=== PATIENT | female | born 1945 | race Caucasian/White ===

== ENCOUNTER 2021-12-27 13:01 | Inpatient (IN) | payer MEDICARE, SELFPAY ==
[2021-12-27] VITALS (16 sets, daily range): BP systolic 92–134; BP diastolic 38–103; PULSE 113–137; RESP 13–24; TEMP 36.2–36.3; O2SAT 95–98; BMI 44.3; BMI 45.6
--- NOTE | 2021-12-27 13:37 | CRLHL7_ITS ---
For Patients: As a result of the Cures Act, medical imaging exams and procedure reports are released immediately into your electronic medical record. You may view this report before your referring provider. If you have questions, please contact your health care provider. INDICATION: Tachycardia. TECHNIQUE: Chest 1 views. COMPARISON: None. FINDINGS: Lungs: Coarse interstitial markings suggest chronic changes. No focal consolidation. Pleura: No pleural effusion or pneumothorax. Elevation of the left diaphragm. Heart and Mediastinum: The heart is mildly enlarged. The vessels are unremarkable. Bones: Unremarkable. IMPRESSION: No acute cardiopulmonary disease. Dictated by Huber Johnson MD @ 12/27/2021 2:34:24 PM (Electronically Signed)
--- NOTE | 2021-12-27 13:46 | ED_ITS ---
HPI - General Adult General Date Seen: 12/27/21 Chief complaint: Arrhythmia/Palpitations Stated complaint: Rapid heart beat Time Seen by Provider: 12/27/21 13:04 Source: patient History of Present Illness HPI narrative: Patient is a 76-year-old woman who is here with her for evaluation of fast heart rate she has been present for 5-6 days. She says that she has known it has been a little bit fast, and she has felt just a little bit fatigued or maybe a little bit weak. She has not had any lightheadedness to the point of feeling faint. She has not had any chest pain, difficulty breathing. No fevers, vomiting, diarrhea, black or bloody stools. She does note she has a history of both SVT as well as atrial fibrillation. She has a history of aortic valve replacement, not anticoagulated, and she says she has also developed problems with her mitral valve. In October she saw cardiology and was started on metoprolol in addition to her lisinopril. She also was told at some point late spring or early summer that she was anemic and is on iron replacement, which has helped quite a bit with her history of vertigo. She says she has had history of frequent UTIs, and had a urology workup at [facility] recently which was unremarkable. Her last UTI was a couple of weeks ago and she feels that those symptoms have resolved completely. She denies any abdominal or flank pain, no dysuria, frequency or urgency. No hematuria. In general, she says she has really felt fine over the past week aside from knowing that her heart rate was fast and that she just generally has not had as much energy. She called her primary clinic last night and left a message, and Dr. Sal message her back around noon today saying she should come to the ER. She was seen here in July of this year with tachycardia, at that time felt to be SVT which converted spontaneously after given some diltiazem. She was admitted to the hospital for a day and did well. She does not smoke, she says she occasionally drinks a half a beer, none recently. She is here today with her . Related Data Home Medications Medication Instructions Recorded Confirmed amoxicillin 500 mg capsule mg 12/27/21 aspirin 325 mg tablet,delayed 325 mg PO DAILY 12/27/21 12/27/21 release cholecalciferol (vitamin D3) 50 50 mcg PO DAILY 12/27/21 12/27/21 mcg (2,000 unit) capsule clotrimazole 1 % topical cream 1 applic topical BID 12/27/21 12/27/21 (Antifungal (clotrimazole)) famotidine 20 mg tablet (Acid 20 mg PO DAILY 12/27/21 12/27/21 Residential Installer (famotidine)) ferrous sulfate 325 mg (65 mg 325 mg PO DAILY 12/27/21 12/27/21 iron) tablet furosemide 20 mg tablet mg 12/27/21 ketoconazole 2 % topical cream applic topical 12/27/21 levothyroxine 150 mcg tablet mcg 12/27/21 lisinopril 10 mg tablet mg 12/27/21 meclizine 25 mg chewable tablet 25 mg PO BID-TID PRN 12/27/21 12/27/21 (Antivert) metformin 500 mg tablet,extended mg PO 12/27/21 release 24 hr metoprolol succinate 25 mg mg PO 12/27/21 tablet,extended release 24 hr nitroglycerin 0.4 mg sublingual mg 12/27/21 tablet nystatin 100,000 unit/gram topical topical 12/27/21 powder (Nystop) simvastatin 20 mg tablet mg 12/27/21 Allergies Allergy/AdvReac Type Severity Reaction Status Date / Time atorvastatin Allergy Verified 12/27/21 13:35 cephalexin Allergy Verified 12/27/21 13:35 ciprofloxacin Allergy Swelling Verified 12/27/21 13:35 of Lip/Tongue/Throat clindamycin Allergy Verified 12/27/21 13:35 Fish Containing Products Allergy Verified 12/27/21 13:35 ibuprofen Allergy Verified 12/27/21 13:35 Sulfa (Sulfonamide Allergy Verified 12/27/21 13:23 Antibiotics) sulfamethoxazole Allergy Verified 12/27/21 13:35 [From Bactrim] trimethoprim [From Bactrim] Allergy Verified 12/27/21 13:35 Review of Systems Status of ROS: Reports: 10 or more systems reviewed and unremarkable except as noted in History and below Exam Narrative: Exam Narrative: Vital signs as noted above. In general, an alert, well-appearing patient. Breathing easily. Head: Normocephalic, atraumatic. Eyes: Pupils are equal reactive. Extraocular movements are full. Conjunctivae are normal. ENT: Mucous membranes are moist. Throat is normal. Neck: Supple without lymphadenopathy. Heart: Tachycardic and regular. I do not hear any murmurs at this time. Lungs: Clear bilaterally. No increased work of breathing, crackles or wheezes. Abdomen: Soft and nontender. No organomegaly. Extremities: Well perfused. No edema. No calf tenderness. Pulses intact. Neurologic: Patient is alert and oriented to person and place. Speech is fluent. Face is symmetric. Moves all extremities equally. Affect: Normal. Skin: Warm and dry. Well perfused. Const: Vital Signs, click to edit/add: Vital Signs - 24 hr 12/27/21 13:18 12/27/21 13:36 12/27/21 13:30 Temperature 97.3 F L Pulse Rate [Left P ulse Oximeter] 137 H 135 H Respiratory Rate 20 15 Blood Pressure [Le ft Forearm] 110/76 98/82 Pulse Oximetry 97 95 Oxygen Delivery Me thod Room Air 12/27/21 14:05 12/27/21 14:30 12/27/21 15:00 Temperature Pulse Rate [Left P ulse Oximeter] 134 H 117 H 130 H Respiratory Rate 15 15 18 Blood Pressure [Le ft Forearm] 134/103 H 92/74 105/74 Pulse Oximetry 96 95 95 Oxygen Delivery Me thod Room Air Room Air Room Air Documenting provider has reviewed patient's vital signs: yes Course Course Hospital Course: On arrival, patient was maintained on monitor and oximetry. An EKG done initially shows a regular, narrow complex tachycardia, ventricular rate of 136. This could represent an atrial flutter with a 2-1 block, could also represent SVT. Her heart rate is very steady in the 130s, and it is so regular that I do wonder a little bit more about atrial flutter, but I do not see clear flutter waves on her EKG. The computer is calling it atrial flutter. I think it is reasonable to give her a dose of adenosine see if we can clarify this, and on the off chance that this represents SVT, perhaps convert her. If it is an atrial flutter, she has clearly been in this rhythm for far too long to consider cardioversion, and at that point we would need to just manage with rate control. She is not showing any signs of clinical heart failure. She does have a history of what is reported in the chart as diastolic heart failure. She has had an echo both at [facility] and at [facility] this year, but I do not have either those reports. Labs are pending at this time. We will repeat a urine although it sounds as if these symptoms have resolved, and she certainly is not showing any signs of acute infection she does not report any symptoms that are suggestive of a focal infection. I did give adenosine, 6 mg. This slowed her from a 2-1 block to a 4-1 block, and then showed clear flutter waves. Otherwise she tolerated this well. I did try just giving her 5 mg of metoprolol given that that is what she takes at home. She had not taken her usual dose of 25 mg daily yet today. She did convert from a flutter to AFib after that, her rate was in the 110-120 range. Her blood pressure however dropped from 05/13 4 systolic to 92 systolic. Labs show a normal white blood cell count. Her hemoglobin is 11.1. Electrolytes are within normal limits. Blood sugars elevated at 220. LFTs are unremarkable. Her BNP is elevated at 31 30, but I do not know what her baseline is. TSH is normal. COVID was negative. Point of care troponin was 0.02. She has been otherwise feeling well in the emergency department, had a meal here. I do think for rate control purposes she will need to be admitted to the hospital. We will need to sort out anticoagulation and then potential cardioversion as an outpatient. Vital Signs Vital signs: Initial Vital Signs Temperature 97.3 F L 12/27/21 13:18 Temperature Source Temporal Artery Scan 12/27/21 13:18 Pulse Rate 137 H 12/27/21 13:18 Respiratory Rate 20 12/27/21 13:18 Blood Pressure 110/76 12/27/21 13:18 Blood Pressure Mean 87 12/27/21 13:18 Pulse Oximetry 97 12/27/21 13:18 Vital Signs Temperature 97.3 F L 12/27/21 13:18 Pulse Rate 137 H 12/27/21 13:18 Respiratory Rate 20 12/27/21 13:18 Blood Pressure 110/76 12/27/21 13:18 Pulse Oximetry 97 12/27/21 13:18 Temperature 97.3 F L 12/27/21 13:18 Pulse Rate 130 H 12/27/21 15:00 Respiratory Rate 18 12/27/21 15:00 Blood Pressure 105/74 12/27/21 15:00 Pulse Oximetry 95 12/27/21 15:00 Oxygen Delivery Method 12/27/21 15:00 Medical Decision Making Lab Data Labs: Lab Results 12/27/21 12/27/21 12/27/21 Range/Units 13:55 13:55 13:55 WBC 5.71 (4.50-11.00) K/uL RBC 4.40 (4.00-5.20) m/uL Hgb 11.1 L (12.0-16.0) gm/dL Hct 35.9 (33.0-51.0) % MCV 82 (80-100) fL MCH 25 L (26-34) pg MCHC 31 L (32-36) gm/dL RDW Coeff of Adelina 19.5 H (11.5-15.5) % Plt Count 180 (140-440) K/uL Neut % (Auto) 79.3 H (42.0-72.0) % Lymph % (Auto) 12.4 L (20-44) % [place] % (Auto) 7.4 (0.0-11.0) % Eos % (Auto) 0.0 (0.0-7.0) % Baso % (Auto) 0.7 (0.0-3.0) % Neut # (Auto) 4.50 (1.7-7.0) K/uL Lymph # (Auto) 0.70 L (0.90-2.90) K/uL [place] # (Auto) 0.40 (0.00-0.90) K/UL Eos # (Auto) 0.00 (0.00-0.50) K/uL Baso # (Auto) 0.04 (0.00-0.30) K/uL Abs Immat Gran (auto) 0.01 (0.00-0.30) K/uL INR 1.01 (0.91-1.10) Sodium 137 (135-149) mmol/L Potassium 4.6 (3.6-5.1) mmol/L Chloride 103 (96-114) mmol/L Carbon Dioxide 23 (20-32) mmol/L BUN 30 (7-30) mg/dL Creatinine 1.5 (0.5-1.5) mg/dL Estimated Creat Clear 25.57 Estimated GFR 35 ml/min Glucose 220 H (60-115) mg/dL Calcium 9.5 (8.4-10.6) mg/dL Total Bilirubin 0.5 (0.1-1.5) mg/dL Direct Bilirubin 0.2 (0.0-0.5) mg/dL AST 30 (12-35) U/L ALT 24 (4-35) U/L Alkaline Phosphatase 118 (40-150) U/L C-Reactive Protein 1.0 (0.5-1.0) mg/dL NT-Pro-B Natriuret Pep 3130 H (0-450) PG/mL Total Protein 6.9 (6.0-8.3) g/dL Albumin 4.0 (3.3-5.0) g/dL TSH (0.270-4.200) uIU/mL SARS-CoV-2 (PCR) (Negative) POC Troponin I (0.01-0.04) ng/ml 12/27/21 12/27/21 12/27/21 Range/Units 13:55 13:55 14:00 WBC (4.50-11.00) K/uL RBC (4.00-5.20) m/uL Hgb (12.0-16.0) gm/dL Hct (33.0-51.0) % MCV (80-100) fL MCH (26-34) pg MCHC (32-36) gm/dL RDW Coeff of Adelina (11.5-15.5) % Plt Count (140-440) K/uL Neut % (Auto) (42.0-72.0) % Lymph % (Auto) (20-44) % [place] % (Auto) (0.0-11.0) % Eos % (Auto) (0.0-7.0) % Baso % (Auto) (0.0-3.0) % Neut # (Auto) (1.7-7.0) K/uL Lymph # (Auto) (0.90-2.90) K/uL [place] # (Auto) (0.00-0.90) K/UL Eos # (Auto) (0.00-0.50) K/uL Baso # (Auto) (0.00-0.30) K/uL Abs Immat Gran (auto) (0.00-0.30) K/uL INR (0.91-1.10) Sodium (135-149) mmol/L Potassium (3.6-5.1) mmol/L Chloride (96-114) mmol/L Carbon Dioxide (20-32) mmol/L BUN (7-30) mg/dL Creatinine (0.5-1.5) mg/dL Estimated Creat Clear Estimated GFR ml/min Glucose (60-115) mg/dL Calcium (8.4-10.6) mg/dL Total Bilirubin (0.1-1.5) mg/dL Direct Bilirubin (0.0-0.5) mg/dL AST (12-35) U/L ALT (4-35) U/L Alkaline Phosphatase (40-150) U/L C-Reactive Protein (0.5-1.0) mg/dL NT-Pro-B Natriuret Pep (0-450) PG/mL Total Protein (6.0-8.3) g/dL Albumin (3.3-5.0) g/dL TSH 0.783 (0.270-4.200) uIU/mL SARS-CoV-2 (PCR) Negative SARS-CoV-2 (Negative) POC Troponin I 0.02 (0.01-0.04) ng/ml Discharge Plan Discharge Prescriptions: No Action simvastatin 20 mg tablet lisinopril 10 mg tablet levothyroxine 150 mcg tablet nitroglycerin 0.4 mg tablet, sublingual Label Comments: PLACE ONE TABLET UNDER TONGUE NEEDED FOR CHEST PAIN MAY REPEAT EVERY 5 MINUTES NEEDED metoprolol succinate 25 mg tablet extended release 24 hr PO nystatin [Nystop] 100,000 unit/gram powder TOPICAL Label Comments: APPLY 1 STRIP TOPICALLY TO AFFECTED AREA THREE TIMES DAILY metformin 500 mg tablet extended release 24 hr PO meclizine [Antivert] 25 mg tablet,chewable 25 mg PO BID-TID PRN clotrimazole [Antifungal (clotrimazole)] 1 % cream 1 applic topical BID cholecalciferol (vitamin D3) 50 mcg (2,000 unit) capsule 50 mcg PO DAILY amoxicillin 500 mg capsule Label Comments: TAKE 4 CAPSULE BY MOUTH 1 HOUR BEFORE DENTAL APPOINTMENT furosemide 20 mg tablet ketoconazole 2 % cream TOPICAL Label Comments: APPLY EXTERNALLY TO THE AFFECTED AREA TWICE DAILY aspirin 325 mg tablet,delayed release (DR/EC) 325 mg PO DAILY famotidine [Acid Residential Installer (famotidine)] 20 mg tablet 20 mg PO DAILY ferrous sulfate 325 mg (65 mg iron) tablet 325 mg PO DAILY Follow Up/Referrals: Martinez Sal MD [Primary Care Provider] -
[2021-12-27] MEDS: ADENOSINE 6 MG/2ML INJ IVP (14:03)
[2021-12-27] MEDS: 0.9 % SODIUM CHLORIDE 500 ML 500 ML IV (14:06)
[2021-12-27 14:08] LABS: Basophils Absolute Auto 0.04 K/uL (0.00-0.30); Basophils Percent Auto 0.7 % (0.0-3.0); Hematocrit 35.9 % (33.0-51.0); Hemoglobin* 11.1 gm/dL (12.0-16.0); Immature Granulocytes Abs Auto 0.01 K/uL (0.00-0.30); Lymphocytes Percent Auto 12.4 % (20-44); Mean Corpuscular HGB Conc 31 gm/dL (32-36); Mean Corpuscular Hemoglobin 25 pg (26-34); Mean Corpuscular Volume 82 fL (80-100); Monocytes Percent Auto 7.4 % (0.0-11.0); Neutrophils Percent Auto 79.3 % (42.0-72.0); Platelet Count* 180 K/uL (140-440); RDW Coefficient of Variation % 19.5 % (11.5-15.5); White Blood Count* 5.71 K/uL (4.50-11.00)
[2021-12-27 14:09] LABS: Slide Review Reflex No
--- NOTE | 2021-12-27 14:09 | ED.NURSE ---
was given 6 mg adenosine. heart rate did slow to a flutter. to 60s. then did increase back to 138. dr hernandez was in to see and assist with the administration.
[2021-12-27] MEDS: METOPROLOL TARTRATE 1 MG/ML inj 5 MG IVP (14:11)
[2021-12-27 14:18] LABS: Troponin, Point-of-Care* 0.02 ng/ml (0.01-0.04)
[2021-12-27 14:28] LABS: Chloride* 103 mmol/L (96-114)
[2021-12-27 14:29] LABS: Potassium* 4.6 mmol/L (3.6-5.1); Sodium* 137 mmol/L (135-149)
[2021-12-27 14:31] LABS: Creatinine* 1.5 mg/dL (0.5-1.5); Est. Creatinine Clearance* 25.57; Estimated Glomerular Filt Rate 35 ml/min
[2021-12-27 14:32] LABS: Alanine Aminotransferase* 24 U/L (4-35); Alkaline Phosphatase* 118 U/L (40-150); Aspartate Amino Transferase* 30 U/L (12-35); Bilirubin Direct* 0.2 mg/dL (0.0-0.5); Bilirubin Total* 0.5 mg/dL (0.1-1.5); Blood Urea Nitrogen* 30 mg/dL (7-30); Calcium* 9.5 mg/dL (8.4-10.6); Carbon Dioxide* 23 mmol/L (20-32); Glucose* 220 mg/dL (60-115); Total Protein* 6.9 g/dL (6.0-8.3)
[2021-12-27 14:33] LABS: INR 1.01 (0.91-1.10); Prothrombin Time 13.8 Seconds
[2021-12-27 14:40] LABS: NT Pro B Type NatriureticPept* 3130 PG/mL (0-450)
[2021-12-27 14:45] LABS: SARS PCR* Negative SARS-CoV-2 (Negative)
[2021-12-27 15:02] LABS: TSH With Reflex to FT4* 0.783 uIU/mL (0.270-4.200)
--- NOTE | 2021-12-27 17:21 | W.PC.EDHO ---
Primary Language: Preferred Language: Orientation Status: [x] Alert & Oriented [] Slight Confusion [] Known Dx Dementia Transfers By: [x] Assist of 1 [] Assist of 2 [] Lift Active Medications Discontinued Medications Generic Name Dose Route Start Last Admin Trade Name Jacob PRN Reason Stop Dose Admin Adenosine 6 mg 12/27/21 13:39 12/27/21 14:03 Adenosine 6 Mg/2ml Inj IVP 12/27/21 13:40 6 mg ONCE ONE Administration Sodium Chloride 500 mls @ 500 mls/hr 12/27/21 13:34 12/27/21 15:10 0.9 % Sodium Chloride 500 Ml IV 12/27/21 14:33 Infused .Q1H ONE Infusion Metoprolol Tartrate 5 mg 12/27/21 14:06 12/27/21 14:11 Metoprolol Tartrate 1 Mg/Ml Inj IVP 12/27/21 14:07 5 mg ONCE ONE Administration Description of Symptoms ED Triage Present Problem rapid heart rate since Sat. Has not been seen. Description Keeps thinking it will get better, but pulse remains in the 130s. Feels SOB, dizzy and weak with this. Fatigue with walking short distances. Hx of a-fib after having her aortic valve replaced 5 years ago. Had an episode of rapid heart rate in July. ED Triage Date of Onset of 12/15/21 Symptoms IV Insertion/Site Date of IV Line Insertion [ 12/27/21 Left Hand] Oxygen Administration Pulse Oximetry 95 Pulse Oximetry 95 Pulse Oximetry 96 Pulse Oximetry 95 Pulse Oximetry 97 Oxygen Delivery Method Room Air Oxygen Delivery Method Room Air Oxygen Delivery Method Room Air Oxygen Delivery Method Room Air Cardiac Monitoring EKG Method 12 Lead
[2021-12-27 18:13] LABS: Appearance Urine Clear (Clear); Bilirubin Urine Negative (Negative); Blood Urine Negative (Negative); Color Urine Yellow (Yellow); Glucose Urine Negative (Negative); Ketones Urine Negative (Negative); Leukocyte Esterase Urine Trace (Negative); Nitrite Urine Negative (Negative); Protein Urine Negative (Negative); Urobilinogen Urine 0.2 (0.2-1.0)
[2021-12-27 18:17] LABS: Bacteria Urine Few; Squamous Epithelial Cell Urine Few (None-Few); WBC Urine 0-2 (0-5)
--- NOTE | 2021-12-27 19:21 | P.IMHP_ITS ---
Hospitalist- H&P: SANTA History of Present Illness Time Seen by Provider: 16:00 Date Seen: 12/27/21 Chief complaint: Rapid heart beat Narrative: Katy Mukherjee is a 76 year old woman who presents with 5-7 day history of rapid heart rate. She is known to have paroxysmal atrial fibrillation. She was waiting and hoping that this episode of rapid heart rate would resolved. At time she felt dizzy and lightheaded. Other time she felt fatigued. Denied any chest heaviness, pressure, tightness, or pain. Denies any dyspnea at rest, paroxysmal nocturnal dyspnea, orthopnea. Denies any increased edema. Every time she will check her heart rate would be greater than 100. She finally decided to come in today for assessment in the emergency department. Historically she has had paroxysmal atrial fibrillation with rapid ventricular response. First time she noticed this was after her hip surgery December 2013. Historically she has been anticoagulated on warfarin. Has not been anticoagulated for a few years now. Not on any negative chronotropic agents. When she 1st arrived she appears to be in atrial flutter with a rate of 140. She is given a dose of adenosine. Transiently her heart rate falls and she has obvious flutter waves at 4:1 conduction. Patient was given a single dose of metoprolol 5 mg IV. Did not seem to affect her heart rate much. Decision was made to admit the patient to the hospital for better rate control and initiation of anticoagulation efforts. Patient and are agreeable. Review of Systems Status of ROS: Reports: 10 or more systems reviewed and unremarkable except as noted in History and below Narrative: Up until week ago she had been in her usual state of health. She had started to have episodes of intermittent dizziness. On Friday roughly 5 days ago she noticed an abrupt change. From then until now she notices that her heart rate is greater than 100. She had hoped that it would resolve but it has not. She finally comes in. Denies chest heaviness, pressure, tightness, or pain. Denies syncope or near-syncope. Has had episodes of transient lightheadedness, seemingly orthostatic. Denies palpitations or fluttering. Denies nausea or vomiting. Denies dyspnea at rest, paroxysmal nocturnal dyspnea, or orthopnea. Has not had a change in her lower extremity edema. No recent fevers, rigors, diaphoresis. No recent illness. No recent trauma or injury. No recent travel. No recent COVID-19. Denies blood loss of any sort. No change in bowel and bladder habits. Denies any recent weight gain or weight loss. Denies polyuria, polydipsia, polyphagia. Denies heat or cold intolerance. No focal motor neurologic deficits. Continues to use her CPAP at night. More fatigued over the course of last week. Patient designates her , Fabián, as her power of estate planning attorney for health should that be required. She requests full resuscitation in the event of cardiopulmo nary demise. Primary care physician is Dr. Sal, [place], [place]. She also receives a lot of her other cares at [facility], [place], [place]. [facility] Medical History Benign paroxysmal positional vertigo Bilateral sensorineural hearing loss CKD stage 3 due to type 2 diabetes mellitus Coronary artery disease Diabetes mellitus type 2 in obese Diastolic CHF, chronic Essential hypertension Gastroesophageal reflux disease Hyperlipidemia associated with type 2 diabetes mellitus Left atrial enlargement Lower extremity edema Mitral valve sclerosis Mitral valve stenosis, severe Morbid obesity with BMI of 45.0-49.9, adult Obstructive sleep apnea on CPAP Paroxysmal atrial fibrillation with rapid ventricular response Primary hypothyroidism Tinnitus of both ears Surgical History H/O aortic valve replacement History of hysterectomy History of right hip replacement Previous section Status post appendectomy Status post cholecystectomy Status post left knee replacement Status post right knee replacement Social History Highest level of school completed/degree received: Bachelor's degree Smoking Status: Former smoker Do you use any of these nicotine containing products: None Second hand tobacco smoke exposure: No How often do you have a drink containing alcohol: 2-3 times a week Alcohol type: beer and wine How many standard drinks containing alcohol do you have on a typical day: 1 or 2 How often do you have six or more drinks on one occasion: Never AUDIT-C Alcohol total score: 3 Non-prescribed substance use: denies use Caffeine: No service: No Meds Home Medications and Allergies Home Medications Medication Instructions Recorded Confirmed Type amoxicillin 500 mg capsule 2,000 mg PO PRN PRN 12/27/21 12/27/21 History aspirin 325 mg tablet,delayed 325 mg PO HS 12/27/21 12/27/21 History release cholecalciferol (vitamin D3) 50 50 mcg PO DAILY 12/27/21 12/27/21 History mcg (2,000 unit) capsule clotrimazole 1 % topical cream 1 applic topical BID 12/27/21 12/27/21 History (Antifungal (clotrimazole)) famotidine 20 mg tablet (Acid 20 mg PO HS 12/27/21 12/27/21 History Workforce Management Analyst (famotidine)) ferrous sulfate 325 mg (65 mg 325 mg PO DAILY 12/27/21 12/27/21 History iron) tablet furosemide 20 mg tablet 20 mg PO MOWEFR@12/27/21 12/27/21 History levothyroxine 150 mcg tablet 150 mcg PO DAILY 12/27/21 12/27/21 History lisinopril 10 mg tablet 10 mg PO DAILY 12/27/21 12/27/21 History meclizine 25 mg chewable tablet 25 mg PO BID-TID PRN 12/27/21 12/27/21 History (Antivert) metformin 500 mg tablet,extended 1,000 mg PO DAILY@18 12/27/21 12/27/21 History release 24 hr metoprolol succinate 25 mg 25 mg PO DAILY 12/27/21 12/27/21 History tablet,extended release 24 hr nitroglycerin 0.4 mg sublingual 0.4 mg sublingual Q5M PRN 12/27/21 12/27/21 History tablet nystatin 100,000 unit/gram topical 1 applic topical TID 12/27/21 12/27/21 History powder (Nystop) simvastatin 20 mg tablet 20 mg PO HS 12/27/21 12/27/21 History Allergies Allergy/AdvReac Type Severity Reaction Status Date / Time atorvastatin Allergy Verified 12/27/21 13:35 cephalexin Allergy Verified 12/27/21 13:35 ciprofloxacin Allergy Swelling Verified 12/27/21 13:35 of Lip/Tongue/Throat clindamycin Allergy Verified 12/27/21 13:35 Fish Containing Products Allergy Verified 12/27/21 13:35 ibuprofen Allergy Verified 12/27/21 13:35 Sulfa (Sulfonamide Allergy Verified 12/27/21 13:23 Antibiotics) sulfamethoxazole Allergy Verified 12/27/21 13:35 [From Bactrim] trimethoprim [From Bactrim] Allergy Verified 12/27/21 13:35 Exam Narrative: Exam Narrative: Appears comfortable and in no apparent distress. Alert, articulate, cooperative, friendly. Oriented to self, place, time, situation. Mood and affect are congruent. Vision and hearing are grossly adequate. She is able to engage in meaningful dialogue in conversation. Midline nasal septum. Dentition in fair repair. Tight oral aperture. Midline trachea. Supple neck. Neck is full. Difficult to see JVD or hepatojugular reflux. No adenopathy in the pre or postauricular chains, anterior or posterior cervical chains, submandibular or submental fossa, supra or infraclavicular fossa, or axilla bilaterally. Lungs are clear to auscultation without wheezing, rhonchi, or rales. Chest wall excursions are full. Heart tones with regular rhythm, tachycardia, normal S1-S2, systolic murmur noted. No gallop or rub. Abdomen with active bowel sounds, soft, nontender. Obese abdomen. Extremity with only trace edema pretibially bilaterally. No focal motor neurologic deficits. Skin is warm, dry, intact. Const: Vital Signs, click to edit/add: Vital Signs - 24 hr 12/27/21 13:18 12/27/21 13:36 12/27/21 13:30 Temperature 97.3 F L Pulse Rate [Left A pical] Pulse Rate [Left P ulse Oximeter] 137 H 135 H Respiratory Rate 20 15 Blood Pressure [Le ft Arm] Blood Pressure [Le ft Forearm] 110/76 98/82 Pulse Oximetry 97 95 Oxygen Delivery Ms thod Room Air 12/27/21 14:05 12/27/21 14:30 12/27/21 15:00 Temperature Pulse Rate [Left A pical] Pulse Rate [Left P ulse Oximeter] 134 H 117 H 130 H Respiratory Rate 15 15 18 Blood Pressure [Le ft Arm] Blood Pressure [Le ft Forearm] 134/103 H 92/74 105/74 Pulse Oximetry 96 95 95 Oxygen Delivery Ms thod Room Air Room Air Room Air 12/27/21 17:56 12/27/21 15:30 12/27/21 16:00 Temperature 97.1 F L Pulse Rate [Left A pical] 136 H Pulse Rate [Left P ulse Oximeter] 129 H 137 H Respiratory Rate 20 19 13 Blood Pressure [Le ft Arm] 118/73 Blood Pressure [Le ft Forearm] 117/88 97/38 L Pulse Oximetry 98 97 Oxygen Delivery Me thod Room Air Room Air Room Air 12/27/21 16:30 12/27/21 17:00 12/27/21 17:30 Temperature Pulse Rate [Left A pical] Pulse Rate [Left P ulse Oximeter] 135 H 134 H 134 H Respiratory Rate 20 24 21 Blood Pressure [Le ft Arm] Blood Pressure [Le ft Forearm] 112/87 125/77 114/66 Pulse Oximetry 95 96 Oxygen Delivery Me thod Room Air Room Air Room Air 12/27/21 18:47 Temperature Pulse Rate [Left A pical] Pulse Rate [Left P ulse Oximeter] Respiratory Rate Blood Pressure [Le ft Arm] Blood Pressure [Le ft Forearm] Pulse Oximetry 98 Oxygen Delivery Me thod Room Air Documenting provider has reviewed patient's vital signs: yes Hospitalist - H&P: Result Labs Labs: Short CBC 12/27/21 Range/Units 13:55 WBC 5.71 (4.50-11.00) K/uL Hgb 11.1 L (12.0-16.0) gm/dL Hct 35.9 (33.0-51.0) % Plt Count 180 (140-440) K/uL BMP 12/27/21 13:55 Sodium 137 Potassium 4.6 Chloride 103 Carbon Dioxide 23 BUN 30 Creatinine 1.5 Glucose 220 H Calcium 9.5 Liver Function 12/27/21 Range/Units 13:55 Total Bilirubin 0.5 (0.1-1.5) mg/dL Direct Bilirubin 0.2 (0.0-0.5) mg/dL AST 30 (12-35) U/L ALT 24 (4-35) U/L Alkaline Phosphatase 118 (40-150) U/L Albumin 4.0 (3.3-5.0) g/dL Urine 12/27/21 Range/Units 17:50 Urine Color Yellow (Yellow) Urine Appearance Clear (Clear) Urine pH 6.0 (5.0-8.5) Ur Specific [place] 1.020 (1.000-1.030) Urine Protein Negative (Negative) Urine Glucose (UA) Negative (Negative) ECG Attestation: I personally reviewed and interpreted this ECG as follows: ECG interpretation date: 12/27/21 ECG interpretation time: 16:00 Prior ECG tracings: not available for review Interpretation: Atrial fib flutter, RVR, rate of 140, without ischemic or infarction pattern. Imaging Chest x-ray: Attestation: I have reviewed the pertinent imaging results. Radiologist's impression: Lungs: Coarse interstitial markings suggest chronic changes. No focal consolidation. Pleura: No pleural effusion or pneumothorax. Elevation of the left diaphragm. Heart and Mediastinum: The heart is mildly enlarged. The vessels are unremarkable. Bones: Unremarkable. IMPRESSION: No acute cardiopulmonary disease. Assessment and Plan Assessment and plan (1) Atrial flutter with rapid ventricular response: Status: Acute (2) Atrial fibrillation with rapid ventricular response: Status: Acute (3) Diastolic CHF, chronic: Problem comment: ECHO 08/08/2021: Grade 2 pattern LV diastolic pattern. Right ventricular systolic pressure 31 mmHg plus right atrial pressure. Status: Acute (4) Mitral valve stenosis, severe: Problem comment: ECHO 08/08/2021: mean gradient 8-11 mmHg at 86-93 bpm, no regurgitation. Status: Acute Plan 1. Discussed the case with emergency department physician. 2. Reviewed my impressions, plans, recommendations with the patient and her . Answered their questions to their satisfaction. 3. Recommend admission to the hospital for rate control and initiation of anticoagulation. Patient has had this rapid ventricular response for several days and is not a candidate for immediate, urgent cardioversion. 4. Initiate diltiazem IV drip and IV metoprolol intermittently. Will eventually switch over to oral diltiazem and oral metoprolol. 5. If we are not able to achieve rate control with diltiazem and metoprolol, may need to add amiodarone. 6. Enoxaparin 1 milligram/kilograms subcutaneously q.12 hours for now. In time will switch to novel oral anticoagulant. 7. Telemetry, serial electrocardiograms, repeat echocardiogram, serial troponin I's. 8. It seems that her mitral stenosis is driving this. This patient will certainly warrant follow-up with Cardiology for additional diagnostic and interventional considerations. 9. Continue with other supportive efforts including CPAP for obstructive sleep apnea. 10. Sliding scale insulin while in hospital, monitoring blood sugars q.i.d., a.c. and at bedtime. 11. Patient and are agreeable to above stated plans and recommendations.
[2021-12-27 19:28] LABS: Magnesium* 1.6 mg/dL (1.5-2.6)
[2021-12-27] MEDS: FUROSEMIDE 10 MG/ML inj 20 MG IVP (19:47)
[2021-12-27] MEDS: dilTIAZem 5 MG/ML inj 10 MG IVP (19:47)
[2021-12-27] MEDS: ENOXAPARIN 120 MG/0.8 ML INJ SUBCUT (19:52)
[2021-12-27 21:04] LABS: Troponin I* 0.02 ng/mL (0.01-0.04)
[2021-12-27] MEDS: METOPROLOL TARTRATE 25 MG TABLET 12.5 MG PO (23:24)
[2021-12-27] MEDS: dilTIAZem 120 MG CAP.ER.24H PO (23:24)
[2021-12-28] VITALS (10 sets, daily range): BP systolic 96–132; BP diastolic 55–88; PULSE 58–123; RESP 18–20; TEMP 36.1–36.7; O2SAT 92–97
[2021-12-28] MEDS: METOPROLOL TARTRATE 1 MG/ML inj 5 MG IVP (01:23)
[2021-12-28] MEDS: ENOXAPARIN 120 MG/0.8 ML INJ SUBCUT (06:18)
--- NOTE | 2021-12-28 06:52 | PC.NURSE ---
shift note 19-: Pt is pleasant and cooperative, A&O. Afebrile, oxygen saturations >90% on RA, CPAP on at HS. Pt SOB with exertion, improves at rest. Denies dizziness and lightheadedness. Tele reads a-fib/a-flutter. Initially patients HR was 110-130's, initiated 10mg IVP Diltiazem bolus and patients BP dropped to 70's/40's, pt was asymptomatic. MD updated and diltiazem drip was discontinued. Pt's HR was 90-110 after the diltiazem bolus, a-flutter. Pt instead started on oral cardiac meds, see eMAR. Pt's HR fluctuated overnight 90's to low 100's at rest, increased as high as 120's with exertion. IVP PRN Metoprolol given x1 overnight for HR >100 for >10mins, unable to give at 0600 because SBP was under 100. Pt denies pain, CP, and N/V. Pt up SBA with a cane and steady on her feet.
[2021-12-28 06:53] LABS: Hematocrit 34.8 % (33.0-51.0); Hemoglobin* 10.7 gm/dL (12.0-16.0); Mean Corpuscular HGB Conc 31 gm/dL (32-36); Mean Corpuscular Hemoglobin 25 pg (26-34); Mean Corpuscular Volume 82 fL (80-100); Platelet Count* 166 K/uL (140-440); Red Blood Count 4.27 m/uL (4.00-5.20); White Blood Count* 4.63 K/uL (4.50-11.00)
[2021-12-28 07:11] LABS: Albumin* 3.8 g/dL (3.3-5.0); Chloride* 105 mmol/L (96-114); Sodium* 135 mmol/L (135-149)
[2021-12-28 07:12] LABS: Potassium* 4.4 mmol/L (3.6-5.1)
[2021-12-28 07:14] LABS: Blood Urea Nitrogen* 34 mg/dL (7-30); Carbon Dioxide* 23 mmol/L (20-32); Creatinine* 1.6 mg/dL (0.5-1.5); Est. Creatinine Clearance* 23.97; Estimated Glomerular Filt Rate 33 ml/min
[2021-12-28 07:15] LABS: Calcium* 8.8 mg/dL (8.4-10.6); Glucose* 143 mg/dL (60-115); Magnesium* 1.5 mg/dL (1.5-2.6); Phosphorus* 4.6 mg/dL (2.5-4.5)
[2021-12-28 07:23] LABS: Slide Review Reflex No
[2021-12-28 07:27] LABS: Troponin I* 0.02 ng/mL (0.01-0.04)
--- NOTE | 2021-12-28 09:19 | PM.IMPN1 ---
Progress Note: A&P Assessment and plan (1) Atrial flutter with rapid ventricular response: Status: Acute (2) Atrial fibrillation with rapid ventricular response: Status: Acute (3) Paroxysmal atrial fibrillation with rapid ventricular response: Problem details: CHADSVASC score 4 09/2020 Status: Chronic (4) Diastolic CHF, chronic: Problem details: ECHO 08/08/2021: Grade 2 pattern LV diastolic pattern. Right ventricular systolic pressure 31 mmHg plus right atrial pressure. Status: Acute (5) Mitral valve stenosis, severe: Problem details: ECHO 08/08/2021: mean gradient 8-11 mmHg at 86-93 bpm, no regurgitation. 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 ECHO 08/08/2021: mean gradient 20 mmHg, no regurgitation. Status: Chronic (7) CONSTANTINE (acute kidney injury): Problem details: Cr 1.5-1.6, up from 1.2 in July 2021. Suspect secondary to cardiorenal syndrome. Status: Acute (8) CKD stage 3 due to type 2 diabetes mellitus: Status: Chronic (9) Essential hypertension: Status: Chronic (10) Obstructive sleep apnea on CPAP: Status: Chronic (11) Coronary artery disease: Problem details: on statin Status: Chronic (12) Diabetes mellitus type 2 in obese: Status: Chronic (13) Normocytic anemia: Status: Chronic Plan Has been getting prn metoprolol for rate control, but continues to have elevated HR and soft BP. I suspect BP will improve with slowing HR down. Trial of po diltiazem. If HR and BP do not improve with this, then start amiodarone. Hold lisinopril, furosemide to allow for higher BP to adjust rate control medications and due to CONSTANTINE. Anticoagulation with therapeutic doses of lovenox for now. Transition to eliquis when stable. ECHO pending today. Hold metformin due to CONSTANTINE. Blood glucoses close to inpatient goal 140-180's . Use Insulin SS with meals and bedtime. Recheck CBC, BMP in am. Restart statin. Anemia stable. Has been on oral iron as outpatient. Restart. TSH checked yesterday and is within normal limits. Continue outpatient levothyroxine. Subjective Time Seen by Provider: 09:00 Date Seen: 09/16/22 Interval history: Estephania Burns, is a 76 y.o woman with known paroxysmal atrial fibrillation who had a racing heart rate for 5-7 days and was found to be in rapid ventricular rate with flutter waves seen after administration of adenosine yesterday. She received an IV diltiazem bolus yesterday, but remains in rapid ventricular rate this morning. Her blood pressure is soft, running in the 100s over 70s, so she has not received any prn doses of metoprolol. Sitting down she feels all right, just a little fatigued. With standing and walking to the bathroom, she feels short of breath and a little dizzy. She denies chest pain. 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 She had an aortic valve replacement with a bioprosthetic porcine valve several years ago. She took warfarin for 6 months after that, and then her forms builder recommended switching to aspirin 325 mg daily which she has been taking since then. This summer she was treated several times with amoxicillin for urinary tract infections. Most recently at the end of November she was treated with nitrofurantoin and feels like the urinary tract infection has finally resolved. She denies any recent urinary symptoms. Exam Narrative: Exam Narrative: General: No acute distress. Awake, alert, oriented x3. No pallor. No jaundice. Oropharynx: Clear. Mucous membranes moist. Cardiovascular: Irregularly irregular. Grade 2/6 systolic murmur loudest at the left lower sternal border. Respiratory: Clear to auscultation bilaterally. No wheezes or crackles. Abdomen: Bowel sounds present. Soft, nondistended, nontender. Extremities: 1+ pretibial edema bilaterally. Const: Vital Signs, click to edit/add: Vital Signs - 24 hr 12/27/21 13:18 12/27/21 13:36 12/27/21 13:30 Temperature 97.3 F L Pulse Rate Pulse Rate [Left A pical] Pulse Rate [Left P ulse Oximeter] 137 H 135 H Respiratory Rate 20 15 Blood Pressure [Le ft Arm] Blood Pressure [Le ft Forearm] 110/76 98/82 Pulse Oximetry 97 95 Oxygen Delivery Me thod Room Air 12/27/21 14:05 12/27/21 14:30 12/27/21 15:00 Temperature Pulse Rate Pulse Rate [Left A pical] Pulse Rate [Left P ulse Oximeter] 134 H 117 H 130 H Respiratory Rate 15 15 18 Blood Pressure [Le ft Arm] Blood Pressure [Le ft Forearm] 134/103 H 92/74 105/74 Pulse Oximetry 96 95 95 Oxygen Delivery [facility] [place] Room Air Room Air Room Air 12/27/21 17:56 12/27/21 15:30 12/27/21 16:00 Temperature 97.1 F L Pulse Rate Pulse Rate [Left A pical] 136 H Pulse Rate [Left P ulse Oximeter] 129 H 137 H Respiratory Rate 20 19 13 Blood Pressure [Le ft Arm] 118/73 Blood Pressure [Le ft Forearm] 117/88 97/38 L Pulse Oximetry 98 97 Oxygen Delivery [facility] Room Air Room Air Room Air 12/27/21 16:30 12/27/21 17:00 12/27/21 17:30 Temperature Pulse Rate Pulse Rate [Left A pical] Pulse Rate [Left P ulse Oximeter] 135 H 134 H 134 H Respiratory Rate 20 24 21 Blood Pressure [Le ft Arm] Blood Pressure [Le ft Forearm] 112/87 125/77 114/66 Pulse Oximetry 95 96 Oxygen Delivery [facility] Room Air Room Air Room Air 12/27/21 18:47 12/27/21 17:50 12/27/21 19:00 Temperature 97.2 F L Pulse Rate 136 H Pulse Rate [Left A pical] 130 H Pulse Rate [Left P ulse Oximeter] Respiratory Rate 20 Blood Pressure [Le ft Arm] 108/57 L Blood Pressure [Le ft Forearm] Pulse Oximetry 98 97 Oxygen Delivery [facility] Room Air Room Air 12/27/21 23:00 12/27/21 23:00 12/27/21 23:00 Temperature 97.3 F L Pulse Rate Pulse Rate [Left A pical] 113 H Pulse Rate [Left P ulse Oximeter] Respiratory Rate 20 20 20 Blood Pressure [Le ft Arm] 119/48 L Blood Pressure [Le ft Forearm] Pulse Oximetry 96 96 97 [facility]xygen [facility] [place] Room Air Room Air 12/28/21 00:33 12/28/21 04:00 12/28/21 07:00 Temperature 97 F L Pulse Rate 97 Pulse Rate [Left A pical] 98 Pulse Rate [Left P ulse Oximeter] Respiratory Rate 20 Blood Pressure [Le ft Arm] 109/55 L Blood Pressure [Le ft Forearm] Pulse Oximetry 92 Oxygen Delivery Me thod Room Air Room Air 12/28/21 07:00 12/28/21 08:00 12/28/21 07:00 Temperature 97.5 F L Pulse Rate 111 H Pulse Rate [Left A pical] 111 H 111 H Pulse Rate [Left P ulse Oximeter] Respiratory Rate 20 20 Blood Pressure [Le ft Arm] 108/78 Blood Pressure [Le ft Forearm] Pulse Oximetry 93 Oxygen Delivery Me thod Room Air Labs Labs: Laboratory Results - last 24 hr 12/27/21 12/27/21 12/27/21 13:55 13:55 13:55 WBC 5.71 RBC 4.40 Hgb 11.1 L Hct 35.9 MCV 82 MCH 25 L MCHC 31 L RDW Coeff of Adelina 19.5 H Plt Count 180 Neut % (Auto) 79.3 H Lymph % (Auto) 12.4 L [place] % (Auto) 7.4 Eos % (Auto) 0.0 Baso % (Auto) 0.7 Neut # (Auto) 4.50 Lymph # (Auto) 0.70 L [place] # (Auto) 0.40 Eos # (Auto) 0.00 Baso # (Auto) 0.04 Abs Immat Gran (auto) 0.01 INR 1.01 Sodium 137 Potassium 4.6 Chloride 103 Carbon Dioxide 23 BUN 30 Creatinine 1.5 Estimated Creat Clear 25.57 Estimated GFR 35 Glucose 220 H Calcium 9.5 Phosphorus Magnesium 1.6 Total Bilirubin 0.5 Direct Bilirubin 0.2 AST 30 ALT 24 Alkaline Phosphatase 118 Troponin I C-Reactive Protein 1.0 NT-Pro-B Natriuret Pep 3130 H Total Protein 6.9 Albumin 4.0 TSH Urine Color Urine Appearance Urine pH Ur Specific [place] Urine Protein Urine Glucose (UA) Urine Ketones Urine Blood Urine Nitrite Urine Bilirubin Urine Urobilinogen Ur Leukocyte Esterase Urine RBC Urine WBC Ur Squamous Epith Cells Urine Bacteria SARS-CoV-2 (PCR) POC Troponin I 12/27/21 12/27/21 12/27/21 13:55 13:55 14:00 WBC RBC Hgb Hct MCV MCH MCHC RDW Coeff of Adelina Plt Count Neut % (Auto) Lymph % (Auto) [place] % (Auto) Eos % (Auto) Baso % (Auto) Neut # (Auto) Lymph # (Auto) [place] # (Auto) Eos # (Auto) Baso # (Auto) Abs Immat Gran (auto) INR Sodium Potassium Chloride Carbon Dioxide BUN Creatinine Estimated Creat Clear Estimated GFR Glucose Calcium Phosphorus Magnesium Total Bilirubin Direct Bilirubin AST ALT Alkaline Phosphatase Troponin I C-Reactive Protein NT-Pro-B Natriuret Pep Total Protein Albumin TSH 0.783 Urine Color Urine Appearance Urine pH Ur Specific [place] Urine Protein Urine Glucose (UA) Urine Ketones Urine Blood Urine Nitrite Urine Bilirubin Urine Urobilinogen Ur Leukocyte Esterase Urine RBC Urine WBC Ur Squamous Epith Cells Urine Bacteria SARS-CoV-2 (PCR) Negative SARS-CoV-2 POC Troponin I 0.02 12/27/21 12/27/21 12/28/21 17:50 19:55 06:20 WBC 4.63 RBC 4.27 Hgb 10.7 L Hct 34.8 MCV 82 MCH 25 L MCHC 31 L RDW Coeff of Adelina Plt Count 166 Neut % (Auto) Lymph % (Auto) [place] % (Auto) Eos % (Auto) Baso % (Auto) Neut # (Auto) Lymph # (Auto) [place] # (Auto) Eos # (Auto) Baso # (Auto) Abs Immat Gran (auto) INR Sodium Potassium Chloride Carbon Dioxide BUN Creatinine Estimated Creat Clear Estimated GFR Glucose Calcium Phosphorus Magnesium Total Bilirubin Direct Bilirubin AST ALT Alkaline Phosphatase Troponin I 0.02 C-Reactive Protein NT-Pro-B Natriuret Pep Total Protein Albumin TSH Urine Color Yellow Urine Appearance Clear Urine pH 6.0 Ur Specific [place] 1.020 Urine Protein Negative Urine Glucose (UA) Negative Urine Ketones Negative Urine Blood Negative Urine Nitrite Negative Urine Bilirubin Negative Urine Urobilinogen 0.2 Ur Leukocyte Esterase Trace A Urine RBC 2-5 A Urine WBC 0-2 Ur Squamous Epith Cells Few Urine Bacteria Few A SARS-CoV-2 (PCR) POC Troponin I 12/28/21 06:20 WBC RBC Hgb Hct MCV MCH MCHC RDW Coeff of Adelina Plt Count Neut % (Auto) Lymph % (Auto) [place] % (Auto) Eos % (Auto) Baso % (Auto) Neut # (Auto) Lymph # (Auto) [place] # (Auto) Eos # (Auto) Baso # (Auto) Abs Immat Gran (auto) INR Sodium 135 Potassium 4.4 Chloride 105 Carbon Dioxide 23 BUN 34 H Creatinine 1.6 H Estimated Creat Clear 23.97 Estimated GFR 33 Glucose 143 H Calcium 8.8 Phosphorus 4.6 H Magnesium 1.5 Total Bilirubin Direct Bilirubin AST ALT Alkaline Phosphatase Troponin I 0.02 C-Reactive Protein NT-Pro-B Natriuret Pep Total Protein Albumin 3.8 TSH Urine Color Urine Appearance Urine pH Ur Specific [place] Urine Protein Urine Glucose (UA) Urine Ketones Urine Blood Urine Nitrite Urine Bilirubin Urine Urobilinogen Ur Leukocyte Esterase Urine RBC Urine WBC Ur Squamous Epith Cells Urine Bacteria SARS-CoV-2 (PCR) POC Troponin I
[2021-12-28] MEDS: dilTIAZem 120 MG CAP.ER.24H PO (10:05)
[2021-12-28] MEDS: LEVOTHYROXINE 75 MCG TABLET 150 MCG PO (10:50)
[2021-12-28] MEDS: METOPROLOL TARTRATE 25 MG TABLET 12.5 MG PO (11:48)
[2021-12-28] MEDS: SIMVASTATIN 20 MG TABLET PO (21:15)
[2021-12-28] MEDS: CLOTRIMAZOLE 1 % CREAM 1 APPLIC TOPICAL (21:15)
[2021-12-28] MEDS: NYSTATIN POWDER 1 APPLIC TOPICAL (22:14)
[2021-12-29 01:50] VITALS: BP 162/86; PULSE 73; RESP 20; TEMP 36.7; O2SAT 96
[2021-12-29] MEDS: LEVOTHYROXINE 75 MCG TABLET 150 MCG PO (05:59)
[2021-12-29] MEDS: ENOXAPARIN 120 MG/0.8 ML INJ SUBCUT (06:00)
--- NOTE | 2021-12-29 06:04 | PC.NURSE ---
Shift Note -: Pt pleasant and cooperative. 2100 dose of Metoprolol held d/t decreased HR and soft BP. Tele shows Pt converted to NSR between 2200 and 2300 with sustained decreased HR noted for the remainder of the shift. Pt denies pain or SOB. PIV patent and asymptomatic. Pt c/o urinary frequency with noted cloudy urine observed by staff, Pt requested to be screened for possible UTI. Sample obtained and sent to lab for culture, results pending. No fever noted throughout shift. Pt up with SBA and assistive cane, Pt observed to be steady on her feet. See eMAR for medication administration.
[2021-12-29 07:30] VITALS: PULSE 66
[2021-12-29 07:48] LABS: Appearance Urine Cloudy (Clear); Bilirubin Urine Negative (Negative); Blood Urine 3+ (Negative); Color Urine Yellow (Yellow); Glucose Urine Negative (Negative); Ketones Urine Trace (Negative); Leukocyte Esterase Urine 2+ (Negative); Nitrite Urine Positive (Negative); Protein Urine 3+ (Negative); Specific Gravity Urine >= 1.030 (1.000-1.030); Urobilinogen Urine 0.2 (0.2-1.0); pH Urine 5.5 (5.0-8.5)
[2021-12-29 08:00] VITALS: PULSE 70; RESP 20; TEMP 36.1; O2SAT 95
[2021-12-29 08:02] LABS: Bacteria Urine Moderate; Squamous Epithelial Cell Urine Few (None-Few); WBC Urine >100 (0-5)
[2021-12-29 08:27] LABS: Basophils Absolute Auto 0.02 K/uL (0.00-0.30); Basophils Percent Auto 0.3 % (0.0-3.0); Hematocrit 34.4 % (33.0-51.0); Hemoglobin* 10.6 gm/dL (12.0-16.0); Immature Granulocytes Abs Auto 0.02 K/uL (0.00-0.30); Lymphocytes Percent Auto 14.8 % (20-44); Mean Corpuscular HGB Conc 31 gm/dL (32-36); Mean Corpuscular Hemoglobin 25 pg (26-34); Mean Corpuscular Volume 82 fL (80-100); Monocytes Percent Auto 10.1 % (0.0-11.0); Neutrophils Percent Auto 74.5 % (42.0-72.0); Platelet Count* 164 K/uL (140-440); RDW Coefficient of Variation % 19.7 % (11.5-15.5); Red Blood Count 4.22 m/uL (4.00-5.20); White Blood Count* 5.87 K/uL (4.50-11.00)
[2021-12-29 08:37] LABS: Slide Review Reflex No
[2021-12-29 08:43] LABS: Chloride* 103 mmol/L (96-114); Sodium* 137 mmol/L (135-149)
[2021-12-29 08:46] LABS: Carbon Dioxide* 23 mmol/L (20-32); Creatinine* 1.6 mg/dL (0.5-1.5); Est. Creatinine Clearance* 23.97; Estimated Glomerular Filt Rate 33 ml/min
[2021-12-29 08:47] LABS: Blood Urea Nitrogen* 34 mg/dL (7-30); Calcium* 8.8 mg/dL (8.4-10.6); Glucose* 203 mg/dL (60-115)
[2021-12-29] MEDS: dilTIAZem 120 MG CAP.ER.24H PO (09:09)
[2021-12-29] MEDS: NYSTATIN POWDER 1 APPLIC TOPICAL (09:10)
[2021-12-29] MEDS: CLOTRIMAZOLE 1 % CREAM 1 APPLIC TOPICAL (09:10)
[2021-12-29] MEDS: FERROUS SULFATE 325 MG TABLET PO (09:10)
[2021-12-29 12:00] VITALS: BP 109/65; PULSE 59; RESP 20; TEMP 36.4; O2SAT 96
--- NOTE | 2021-12-29 12:55 | P.DS_ITS ---
DS: Providers Provider Time Seen by Provider: 09:00 Date Seen: 12/29/21 Date of admission: 12/27/21 21:05 Primary care physician: Martinez Sal MD Admitting Clinician: Adin Quezada MD Consults: 12/27/21 18:47 Consult to Nutrition [CONS] Routine Comment: Reason for consult:: Miscellaneous Comment: diastolic heart failure Attending Physician on discharge: Esthela Beckman MD Date of Discharge: 12/29/21 DS: Diagnosis Discharge Diagnosis (1) Primary hypothyroidism: Status: Chronic (2) Normocytic anemia: Status: Chronic (3) CONSTANTINE (acute kidney injury): Status: Acute Problem details: Cr 1.5-1.6, up from 1.2 in July 2021. Suspect secondary to cardiorenal syndrome. (4) Atrial flutter with rapid ventricular response: Status: Acute (5) Atrial fibrillation with rapid ventricular response: Status: Acute (6) Paroxysmal atrial fibrillation with rapid ventricular response: Status: Chronic Problem details: CHADSVASC score 4 09/2020 (7) Diastolic CHF, chronic: Status: Acute Problem details: ECHO 08/08/2021: Grade 2 pattern LV diastolic pattern. Right ventricular systolic pressure 31 mmHg plus right atrial pressure. 12/28/2021 calculated EF 58% (8) Mitral valve stenosis, severe: Status: Chronic Problem details: ECHO 08/08/2021: mean gradient 8-11 mmHg at 86-93 bpm, no regurgitation. 12/28/2021 mild mitral regurgitation, echo was done with atrial flutter rhythm. 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 ECHO 08/08/2021: mean gradient 20 mmHg, no regurgitation. Repeat ECHO 12/28/21 velocity is 2.7 milliseconds, peak gradient is 30 mm Hg and mean gradient is 19 mm Hg. Valve area is 1.26 centimeters squared with dimensionless index of 0.37. Stroke volume index is 26.1 milliliters/meter squared. (10) CKD stage 3 due to type 2 diabetes mellitus: Status: Chronic (11) Essential hypertension: Status: Chronic Problem details: Lisinopril is being held due to low blood pressure and elevated creatinine. (12) Obstructive sleep apnea on CPAP: Status: Chronic (13) Coronary artery disease: Status: Chronic Problem details: on statin (14) Diabetes mellitus type 2 in obese: Status: Chronic (15) Abnormal echocardiogram: Status: Acute Problem details: 12/28/2021 normal LV size, severely increased wall thickness in a concentric pattern, normal global and regional systolic function, calculated EF of 58%. Aortic valve is abnormal functioning 23 mm trifecta bioprosthesis AVR, mild to moderate stenosis and mild regurgitation. Aortic valve peak velocity is 2.7 m/s, the peak gradient is 30 mm mercury, the mean gradient is 19 mm Hg. The aortic valve area is 1.26 cm2 with a dimensionless index of 0.37. Stroke volume index is 26.1 ml/m2. Mitral valve is sclerotic and mild mitral regurgitation. Tricuspid valve is non coaptating. Severe tricuspid regurgitation. Mildly increased estimated pulmonary pressures by tricuspid regurgitation velocity and right atrial pressure (35 mmHg plus RAP which is estimated to be high normal based on IVC geometry). Ascending aorta is dilated with a maximal diameter of 4.1 cm. The aortic sinus is dilated with a maximal diameter of 4.4 cm. (16) Tricuspid regurgitation: Status: Acute Problem details: Tricuspid valve is non coaptating. Severe tricuspid regurgitation. 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 The aortic sinus is dilated with a maximal diameter of 4.4 cm. (18) E-coli UTI: Status: Acute Problem details: pansensitive. Recurrent. F/u with urology. DS: Summary Hospital Course Hospital Course: Is a 76-year-old female with known paroxysmal atrial fibrillation who had a racing heart rate for 5-7 days and was found to be in rapid ventricular rate with flutter waves seen after administration of adenosine yesterday. She received an IV diltiazem bolus, but dropped her SBP into the 70's and remained in rapid ventricular rate this morning. She was admitted, started on oral diltiazem and her usual metoprolol with therapeutic enoxaparin for stroke prophylaxis. Heart rate started to come under control yesterday with this regimen and then she converted to normal sinus rhythm overnight. Heart rates are now in the low 60s, normal sinus rhythm. Her symptoms have resolved. Echocardiogram was obtained yesterday results of which are below. Creatinine remains slightly elevated for which I have continued to hold lisinopril. She will follow-up with Dr. Sal this week for labs and to talk about when to restart lisinopril. I have restarted her metformin since her creatinine has remained stable, albeit elevated. 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 Additionally she has a pansensitive E coli urinary tract infection for which I started her on amoxicillin. She has had recurrent urinary tract infections over the summer for which I have asked her to see a urologist at [facility]. Over 30 minutes was spent talking with the patient and her , Fabián, and then later the patient and her son, Anil. Time spent discussing smoking cessation with patient: more than 10 minutes Time Spent with Patient Time attestation: Total time spent providing and/or coordinating discharge services: Exam Narrative: Exam Narrative: General: No acute distress. Awake, alert, oriented x3. No pallor. No jaundice. Oropharynx: Clear. Mucous membranes moist. Cardiovascular: Regular rate and rhythm. Grade 2/6 systolic murmur loudest at the left lower sternal border. Respiratory: Clear to auscultation bilaterally. No wheezes or crackles. Abdomen: Bowel sounds present. Soft, nondistended, nontender. Extremities: 1+ pretibial edema bilaterally. Const: Vital Signs, click to edit/add: Vital Signs - 24 hr 12/28/21 15:00 12/28/21 15:00 12/28/21 15:00 Temperature Pulse Rate 98 Pulse Rate [Left A pical] 103 H Respiratory Rate 20 Blood Pressure [Le ft Arm] Pulse Oximetry 95 Oxygen Delivery Me thod Room Air 12/28/21 15:00 12/28/21 19:48 12/28/21 22:11 Temperature 98 F 98.1 F Pulse Rate Pulse Rate [Left A pical] 96 123 H 58 L Respiratory Rate 20 20 18 Blood Pressure [Le ft Arm] 132/70 96/59 L 118/59 L Pulse Oximetry 95 97 95 Oxygen Delivery Ms thod Room Air Room Air Room Air 12/28/21 23:00 12/28/21 23:00 12/28/21 23:00 Temperature Pulse Rate 60 Pulse Rate [Left A pical] 60 Respiratory Rate 18 18 Blood Pressure [Le ft Arm] Pulse Oximetry 95 Oxygen Delivery Ms thod Room Air 12/29/21 01:50 12/29/21 07:30 12/29/21 08:00 Temperature 98.1 F Pulse Rate 66 Pulse Rate [Left A pical] 73 70 Respiratory Rate 20 20 Blood Pressure [Le ft Arm] 162/86 H Pulse Oximetry 96 Oxygen Delivery Me thod Room Air 12/29/21 08:00 12/29/21 08:00 12/29/21 12:00 Temperature 97 F L 97.5 F L Pulse Rate Pulse Rate [Left A pical] 70 59 L Respiratory Rate 20 20 Blood Pressure [Le ft Arm] 109/65 Pulse Oximetry 95 95 96 Oxygen Delivery Me thod Room Air Room Air Room Air DS: Data Data Completed and Pending Completed studies during hospitalization: Ordering Physician: Jane Estrada MD Date of Service: 12/27/21 Procedure(s): XR chest 1V portable Accession Number(s): [id number] cc: Jane Estrada MD; Martinez Sal MD~ For Patients: As a result of the Cures Act, medical imaging exams and procedure reports are released immediately into your electronic medical record. You may view this report before your referring provider. If you have questions, please contact your health care provider. INDICATION: Tachycardia. TECHNIQUE: Chest 1 views. COMPARISON: None. FINDINGS: Lungs: Coarse interstitial markings suggest chronic changes. No focal consolidation. Pleura: No pleural effusion or pneumothorax. Elevation of the left diaphragm. Heart and Mediastinum: The heart is mildly enlarged. The vessels are unremarkable. Bones: Unremarkable. IMPRESSION: No acute cardiopulmonary disease. Dictated by Huebr Johnson MD @ 12/27/2021 2:34:24 PM (Electronically Signed) EKG 12/27/2021 atrial flutter with 2-1 AV conduction, 136 beats per minute, low- voltage QRS, cannot rule out anterior infarct, age undetermined. ST and T-wave abnormality, consider lateral ischemia. EKG 12/29/2021 sinus bradycardia, heart rate 59 beats per minute, cannot rule out anterior infarct, age undetermined. P.r. interval 206 milliseconds. 12/28/2021 ECHO normal LV size, severely increased wall thickness in a concentric pattern, normal global and regional systolic function, calculated EF of 58%. Aortic valve is abnormal functioning 23 mm trifecta bioprosthesis AVR, mild to moderate stenosis and mild regurgitation. Aortic valve peak velocity is 2.7 m/s, the peak gradient is 30 mm mercury, the mean gradient is 19 mm Hg. The aortic valve area is 1.26 cm2 with a dimensionless index of 0.37. Stroke volume index is 26.1 ml/m2. Mitral valve is sclerotic and mild mitral regurgitation. Tricuspid valve is non coaptating. Severe tricuspid regurgitation. Mildly increased estimated pulmonary pressures by tricuspid regurgitation velocity and right atrial pressure (35 mmHg plus RAP which is estimated to be high normal based on IVC geometry). Ascending aorta is dilated with a maximal diameter of 4.1 cm. The aortic sinus is dilated with a maximal diameter of 4.4 cm. Labs on day of discharge: Labs from last 24 hours 12/29/21 12/29/21 12/29/21 08:22 08:22 07:45 WBC 5.87 RBC 4.22 Hgb 10.6 L Hct 34.4 MCV 82 MCH 25 L MCHC 31 L RDW Coeff of Adelina 19.7 H Plt Count 164 Neut % (Auto) 74.5 H Lymph % (Auto) 14.8 L [place] % (Auto) 10.1 Eos % (Auto) 0.0 Baso % (Auto) 0.3 Neut # (Auto) 4.40 Lymph # (Auto) 0.90 [place] # (Auto) 0.60 Eos # (Auto) 0.00 Baso # (Auto) 0.02 Abs Immat Gran (auto) 0.02 Sodium 137 Potassium 4.0 Chloride 103 Carbon Dioxide 23 BUN 34 H Creatinine 1.6 H Estimated Creat Clear 23.97 Estimated GFR 33 Glucose 203 H Calcium 8.8 Urine Color Yellow Urine Appearance Cloudy A Urine pH 5.5 Ur Specific [place] >= 1.030 Urine Protein 3+ A Urine Glucose (UA) Negative Urine Ketones Trace A Urine Blood 3+ A Urine Nitrite Positive A Urine Bilirubin Negative Urine Urobilinogen 0.2 Ur Leukocyte Esterase 2+ A Urine RBC 10-25 A Urine WBC >100 A Ur Squamous Epith Cells Few Urine Bacteria Moderate A Discharge Plan Discharge Disposition: Home, Self-Care Date of Admission: 12/27/21 21:05 Attending Provider on Discharge: Esthela Beckman Primary Care Provider: Martinez Sal Condition: Stable Anticipated Discharge Date/Time: 12/29/21 17:00 Discharge Medications: New Eliquis 5 mg tablet 5 mg PO BID Qty: 60 0RF diltiazem HCl [DILT-XR] 120 mg Capsule,Ext.Rel 24h Degradable 120 mg PO DAILY Qty: 30 0RF amoxicillin 500 mg capsule 500 mg PO TID Qty: 15 0RF Continued levothyroxine 150 mcg tablet 150 mcg PO DAILY nitroglycerin 0.4 mg tablet, sublingual 0.4 mg sublingual Q5M PRN Label Comments: PLACE ONE TABLET UNDER TONGUE NEEDED FOR CHEST PAIN MAY REPEAT EVERY 5 MINUTES NEEDED nystatin [Nystop] 100,000 unit/gram powder 1 applic TOPICAL TID Label Comments: APPLY 1 STRIP TOPICALLY TO AFFECTED AREA THREE TIMES DAILY metformin 500 mg tablet extended release 24 hr 1,000 mg PO DAILY@18 meclizine [Antivert] 25 mg tablet,chewable 25 mg PO BID-TID PRN clotrimazole [Antifungal (clotrimazole)] 1 % cream 1 applic topical BID cholecalciferol (vitamin D3) 50 mcg (2,000 unit) capsule 50 mcg PO DAILY amoxicillin 500 mg capsule 2,000 mg PO PRN PRN Label Comments: TAKE 4 CAPSULE BY MOUTH 1 HOUR BEFORE DENTAL APPOINTMENT furosemide 20 mg tablet 20 mg PO MOWEFR@09 famotidine [Acid Under Water Assistant (famotidine)] 20 mg tablet 20 mg PO HS ferrous sulfate 325 mg (65 mg iron) tablet 325 mg PO DAILY Changed simvastatin 20 mg tablet 10 mg PO HS Qty: 15 0RF Discontinued lisinopril 10 mg tablet 10 mg PO DAILY metoprolol succinate 25 mg tablet extended release 24 hr 25 mg PO DAILY aspirin 325 mg tablet,delayed release (DR/EC) 325 mg PO HS Discharge Orders: Discharge Order (Routine); Ordered 12/29/21 Ordered By: Esthela Beckman Patient Education: Diltiazem (By mouth) Activity Restrictions/Additional Instructions: Follow up with Rukhsana Gillette at [facility] in 2-3 weeks. Follow up with [facility] urology in 1 week, or sooner if needed. BMP in 5 days with primary care provider. Activity Level: No Restrictions Discharge Diet: Diabetic and Low Fat/Low Cholesterol Follow Up Appointments: Jade Cuenca DO [Staff Physician] - 01/02/22 8:10 am Martinez Sal MD [Primary Care Provider] - (PCP unavailable) Forms: [facility] Info Instructions
[2021-12-29 13:51] VITALS: PULSE 66; RESP 20; TEMP 36.4
--- NOTE | 2021-12-29 15:25 | PC.NURSE ---
Pt remains in NSR. Eval by Dr. Beckman. EKG completed. RN held metoprolol d/to low blood pressures and notified MD on morning rounds. Dr. Beckman explained plan of care to pt's Fabián in am and pt's son Anil this afternoon. Pt will f/up with Dr. Cuenca, urology and cardiology. Pt and son verbalized understanding of d/c diagnosis, home meds, new prescriptions, f/up appt with Dr. Cuenca at [facility] ([facility] RN reviewed symptoms to report urgently to MD and worsening chest pain to be evaluated by calling 911. RN reviewed proper procedure for taking NTG, slow position changes and how to take a pulse. Discharged via w/c @ 1520 pm to own home w/personal belongings and son Anil who will provide transportation.
== END 2021-12-29 15:20 | disposition home or self-care (01) | DRG 309 ==
LOC: ED 16:45 → MEDSURG 17:22
PROVIDERS: Family Medicine; Admitting Provider Internal Medicine; Emergency Provider Emergency Medicine; PCP Family Medicine; Visit Provider Internal Medicine
DX: I48.0 Paroxysmal atrial fibrillation (principal); N17.9 Acute kidney failure, unspecified; I13.0 Hypertensive heart and chronic kidney disease with heart failure and stage 1 through stage 4 chronic kidney disease, or unspecified chronic kidney disease; I50.32 Chronic diastolic (congestive) heart failure; N39.0 Urinary tract infection, site not specified; B96.20 Unspecified Escherichia coli [E. coli] as the cause of diseases classified elsewhere; I48.92 Unspecified atrial flutter; Z95.2 Presence of prosthetic heart valve; G47.33 Obstructive sleep apnea (adult) (pediatric); D64.9 Anemia, unspecified; E11.22 Type 2 diabetes mellitus with diabetic chronic kidney disease; N18.30 Chronic kidney disease, stage 3 unspecified; I08.3 Combined rheumatic disorders of mitral, aortic and tricuspid valves; I77.819 Aortic ectasia, unspecified site; E03.9 Hypothyroidism, unspecified; I25.10 Atherosclerotic heart disease of native coronary artery without angina pectoris; E66.01 Morbid (severe) obesity due to excess calories
CPT/HCPCS: 36415; 71045; 80048; 80069; 80076; 81001; 81003; 81015; 82947; 83735; 83880; 84443; 84484; 85025; 85027; 85610; 86140; 87086; 87186; 87635; 93005; 93306; 94761; 99284; 99285; A9270; J0153; J1650; J1940; J7120

== ENCOUNTER 2022-03-30 13:45 | Emergency (ER) | payer MEDICARE, SELFPAY ==
[2022-03-30] VITALS (10 sets, daily range): BP systolic 92–133; BP diastolic 66–95; PULSE 93–112; RESP 18–22; TEMP 36.3; O2SAT 95–97; BMI 42.0
--- NOTE | 2022-03-30 14:48 | ED_ITS ---
HPI - General Adult General Time Seen by Provider: 14:48 Date Seen: 03/30/22 Chief complaint: Arrhythmia/Palpitations Stated complaint: AFIB Time Seen by Provider: 03/30/22 13:47 Source: patient and RN notes reviewed Mode of arrival: ambulatory Limitations: no limitations History of Present Illness HPI narrative: Patient is a very pleasant 77-year-old female coming in with sense of irregular heartbeat. She actually was having hot flashing last night that caused her to check her pulse. On her monitor she could tell her pulse was elevated, up to 130. She is doing cardiac rehab in [place] for having had an aortic valve replaced in February of 2022 at [facility]. She states she did well with that. When she was at cardiac rehab yesterday, she was found to be in and arrhythmia and was sent to the ER in [place]. She states she got an IV dose of metoprolol and then an oral dose of metoprolol and converted. She is not sure if it was atrial fibrillation or atrial flutter but her patient education handout states atrial fibrillation. I see in her problem list that she has had both atrial fibrillation and atrial flutter listed. Since she was given oral does in the ED yesterday of metoprolol, she did not take her nighttime dose. Actually took that at about 3:00 a.m. when she was up and knew her pulse was fast. She denies being ill with anything, no cough or cold symptoms. She has had no fevers. No abdominal pain, no abdominal symptoms. She is not feeling short of breath with this, no chest pain. She is on Eliquis. Related Data Home Medications Medication Instructions Recorded Confirmed amoxicillin 500 mg capsule 2,000 mg PO PRN PRN 12/27/21 12/27/21 cholecalciferol (vitamin D3) 50 50 mcg PO DAILY 12/27/21 12/27/21 mcg (2,000 unit) capsule clotrimazole 1 % topical cream 1 applic topical BID 12/27/21 12/27/21 (Antifungal (clotrimazole)) famotidine 20 mg tablet (Acid 20 mg PO HS 12/27/21 12/27/21 Motorcycle Maker (famotidine)) ferrous sulfate 325 mg (65 mg 325 mg PO DAILY 12/27/21 12/27/21 iron) tablet furosemide 20 mg tablet 20 mg PO MOWEFR@12/27/21 12/27/21 levothyroxine 150 mcg tablet 150 mcg PO DAILY 12/27/21 12/27/21 meclizine 25 mg chewable tablet 25 mg PO BID-TID PRN 12/27/21 12/27/21 (Antivert) metformin 500 mg tablet,extended 1,000 mg PO DAILY@18 12/27/21 12/27/21 release 24 hr nitroglycerin 0.4 mg sublingual 0.4 mg sublingual Q5M PRN 12/27/21 12/27/21 tablet nystatin 100,000 unit/gram topical 1 applic topical TID 12/27/21 12/27/21 powder (Nystop) Previous Rx's Medication Instructions Recorded amoxicillin 500 mg capsule 500 mg PO TID #15 caps 12/29/21 apixaban 5 mg tablet (Eliquis) 5 mg PO BID #60 tabs 12/29/21 diltiazem HCl 120 mg 120 mg PO DAILY #30 caps 12/29/21 capsule,extended release 24 hr, controlled (DILT-XR) simvastatin 20 mg tablet 10 mg PO HS #15 tabs 12/29/21 diltiazem HCl 240 mg 240 mg PO DAILY #30 caps 03/30/22 capsule,extended release 24 hr, controlled Allergies Allergy/AdvReac Type Severity Reaction Status Date / Time atorvastatin Allergy Verified 03/30/22 14:16 cephalexin Allergy Verified 03/30/22 14:16 ciprofloxacin Allergy Swelling Verified 03/30/22 14:16 of Lip/Tongue/Throat clindamycin Allergy Verified 03/30/22 14:16 Fish Containing Products Allergy Verified 03/30/22 14:16 ibuprofen Allergy Verified 03/30/22 14:16 Sulfa (Sulfonamide Allergy Verified 03/30/22 14:16 Antibiotics) sulfamethoxazole Allergy Verified 03/30/22 14:16 [From Bactrim] trimethoprim [From Bactrim] Allergy Verified 03/30/22 14:16 Review of Systems Status of ROS: Reports: 10 or more systems reviewed and unremarkable except as noted in History and below [facility] Medical History (Updated 03/30/22 @ 18:08 by Melissa Bailey MD) Abnormal echocardiogram Atrial fibrillation with rapid ventricular response Atrial flutter with rapid ventricular response Benign paroxysmal positional vertigo Bilateral sensorineural hearing loss CKD stage 3 due to type 2 diabetes mellitus Coronary artery disease Diabetes mellitus type 2 in obese Diastolic CHF, chronic Essential hypertension Gastroesophageal reflux disease Hyperlipidemia associated with type 2 diabetes mellitus Left atrial enlargement Lower extremity edema Mitral valve sclerosis Mitral valve stenosis, severe Morbid obesity with BMI of 45.0-49.9, adult Normocytic anemia Obstructive sleep apnea on CPAP Paroxysmal atrial fibrillation with rapid ventricular response Primary hypothyroidism Tinnitus of both ears Tricuspid regurgitation Surgical History (Updated 01/06/22 @ 00:00 by ) H/O aortic valve replacement History of hysterectomy History of right hip replacement Previous section Status post appendectomy Status post cholecystectomy Status post left knee replacement Status post right knee replacement Social History Highest level of school completed/degree received: Bachelor's degree Smoking Status: Former smoker Do you use any of these nicotine containing products: None Second hand tobacco smoke exposure: No How often do you have a drink containing alcohol: 2-3 times a week Alcohol type: beer and wine How many standard drinks containing alcohol do you have on a typical day: 1 or 2 How often do you have six or more drinks on one occasion: Never AUDIT-C Alcohol total score: 3 Non-prescribed substance use: denies use Caffeine: No service: No Exam Const: Vital Signs, click to edit/add: Vital Signs - 24 hr 03/30/22 14:17 Temperature 97.4 F L Pulse Rate [Pulse Oximeter] 110 H Respiratory Rate 20 Blood Pressure [Le ft Forearm] 92/73 Pulse Oximetry 95 Oxygen Delivery Me thod Room Air Documenting provider has reviewed patient's vital signs: yes Common normals: no apparent distress, oriented x3, no limitations, healthy appearing and alert Nutritional appearance: overweight HENMT: Common normals: normocephalic, head/scalp atraumatic, hearing grossly normal bilaterally, external ears normal, external nose normal, nasal mucous membranes and turbinates normal and moist oral mucous membranes Head and scalp: normocephalic and atraumatic Nose: external nose normal and nasal mucous membranes and turbinates normal External ear: external ears normal Eye: Common normals: PERRL, EOMs intact bilaterally, conjunctivae normal and no scleral icterus Conjunctiva: conjunctiva(e) normal Pupil: PERRL Neck & C-Spine: Common normals: full ROM, no lymphadenopathy, supple, no meningeal signs, no JVD and thyroid normal Thyroid: thyroid normal Resp: Common normals: normal respiratory effort, no retractions, no use of accessory muscles and clear to auscultation bilaterally Auscultation: clear to auscultation bilaterally Cardio: Common normals: no JVD Rate: other (Ranges from pulse in upper 90s to mildly tachycardic) Rhythm: abnormal rhythm irregularly irregular GI: Common normals: Normal to inspection, nondistended, normoactive bowel sounds present, soft to palpation, non-tender, no hepatosplenomegaly and no masses Palpation: soft and no hepatosplenomegaly Extremity: Common normals: no calf tenderness Other: No significant pitting edema of lower extremities. Neuro: Common normals: oriented x3, CN's II-XII intact bilaterally, moves all extremities and no focal motor deficits Sensorium/orientation: alert Meningeal signs: no meningeal signs Course Course Hospital Course: She will be on cardiac monitoring, pulse oximetry. EKG given to me as obtained by staff on arrival shows atrial flutter with variable block. We will get a portable chest x-ray, obtain some labs and likely be talking to [facility]. Right now she is hemodynamically stable. Does not seem to have any physical stigmata of congestive heart failure. She is having no pain. She does not require emergent cardioversion. Reevaluation(s) Reevaluation #1: Reviewed with patient that I would be calling [facility] as I have almost all labs back, just TSH pending. She is still feeling fine. Monitor almost appears to be afib now, will get another EKG. Time: 16:25 Reevaluation #2: Patient is on diltiazem 180 mg of the extended release daily. Metoprolol was started yesterday. Have reviewed with her the recommendations from the keyboard teacher that he spoke with earlier. We are going to give her some immediate release Cardizem now. I will increase her daily dosage of the diltiazem for better rate control of the atrial flutter. We will have her stop the metoprolol. Time: 18:00 Consultations Consultation #1: Spoke with the keyboard teacher Dr. Moser from [facility]. He had that the patient was on diltiazem 180 mg of the extended release when she was discharged from [place] in February from her TAVR. Diltiazem would be better for rate control with atrial flutter. He notes that her EF was normal and an acceptable rate certainly would be 80-110 with atrial flutter for her. She had minimal coronary artery disease and does not feel that she needs to be on the metoprolol. Song she is feeling okay, have somewhat decent capture of her heart rate, recommended increasing the diltiazem. Plan is to give her a dose of immediate release here and then I will increase her diltiazem on discharge. Time: 17:04 Vital Signs Vital signs: Initial Vital Signs Temperature 97.4 F L 03/30/22 14:17 Temperature Source Temporal Artery Scan 03/30/22 14:17 Pulse Rate 110 H 03/30/22 14:17 Pulse Rhythm 03/30/22 14:17 Respiratory Rate 20 03/30/22 14:17 Blood Pressure 92/73 03/30/22 14:17 Blood Pressure Mean 79 03/30/22 14:17 Blood Pressure Position Supine 03/30/22 14:17 Pulse Oximetry 95 03/30/22 14:17 Oxygen Delivery Method 03/30/22 14:17 Vital Signs Temperature 97.4 F L 03/30/22 14:17 Pulse Rate 110 H 03/30/22 14:17 Respiratory Rate 20 03/30/22 14:17 Blood Pressure 92/73 03/30/22 14:17 Pulse Oximetry 95 03/30/22 14:17 Oxygen Delivery Method 03/30/22 14:17 Temperature 97.4 F L 03/30/22 14:17 Pulse Rate 110 H 03/30/22 14:17 Respiratory Rate 20 03/30/22 14:17 Blood Pressure 92/73 03/30/22 14:17 Pulse Oximetry 95 03/30/22 14:17 Oxygen Delivery Method 03/30/22 14:17 Medical Decision Making Lab Data Lab results reviewed: Yes I reviewed the patient's lab results Labs: Lab Results 03/30/22 03/30/22 03/30/22 Range/Units 15:02 15:05 15:05 WBC 6.17 (4.50-11.00) K/uL RBC 4.51 (4.00-5.20) m/uL Hgb 13.0 (12.0-16.0) gm/dL Hct 39.8 (33.0-51.0) % MCV 88 (80-100) fL MCH 29 (26-34) pg MCHC 33 (32-36) gm/dL RDW Coeff of Adelina 14.9 (11.5-15.5) % Plt Count 139 L (140-440) K/uL Neut % (Auto) 76.8 H (42.0-72.0) % Lymph % (Auto) 14.1 L (20-44) % Blount % (Auto) 8.3 (0.0-11.0) % Eos % (Auto) 0.0 (0.0-7.0) % Baso % (Auto) 0.5 (0.0-3.0) % Neut # (Auto) 4.70 (1.7-7.0) K/uL Lymph # (Auto) 0.90 (0.90-2.90) K/uL Blount # (Auto) 0.50 (0.00-0.90) K/UL Eos # (Auto) 0.00 (0.00-0.50) K/uL Baso # (Auto) 0.03 (0.00-0.30) K/uL Sodium 137 (135-149) mmol/L Potassium 4.5 (3.6-5.1) mmol/L Chloride 104 (96-114) mmol/L Carbon Dioxide 26 (20-32) mmol/L BUN 26 (7-30) mg/dL Creatinine 1.4 (0.5-1.5) mg/dL Estimated Creat Clear 26.95 Estimated GFR 38 ml/min Glucose 203 H (60-115) mg/dL Calcium 9.4 (8.4-10.6) mg/dL Magnesium 1.6 (1.5-2.6) mg/dL Total Bilirubin 0.5 (0.1-1.5) mg/dL AST 40 H (12-35) U/L ALT 29 (4-35) U/L Alkaline Phosphatase 115 (40-150) U/L NT-Pro-B Natriuret Pep 5120 pg/mL Total Protein 6.6 (6.0-8.3) g/dL Albumin 3.9 (3.3-5.0) g/dL TSH (0.270-4.200) uIU/mL POC Troponin I 0.02 (0.01-0.04) ng/ml 03/30/22 Range/Units 15:05 WBC (4.50-11.00) K/uL RBC (4.00-5.20) m/uL Hgb (12.0-16.0) gm/dL Hct (33.0-51.0) % MCV (80-100) fL MCH (26-34) pg MCHC (32-36) gm/dL RDW Coeff of Adelina (11.5-15.5) % Plt Count (140-440) K/uL Neut % (Auto) (42.0-72.0) % Lymph % (Auto) (20-44) % Blount % (Auto) (0.0-11.0) % Eos % (Auto) (0.0-7.0) % Baso % (Auto) (0.0-3.0) % Neut # (Auto) (1.7-7.0) K/uL Lymph # (Auto) (0.90-2.90) K/uL Blount # (Auto) (0.00-0.90) K/UL Eos # (Auto) (0.00-0.50) K/uL Baso # (Auto) (0.00-0.30) K/uL Sodium (135-149) mmol/L Potassium (3.6-5.1) mmol/L Chloride (96-114) mmol/L Carbon Dioxide (20-32) mmol/L BUN (7-30) mg/dL Creatinine (0.5-1.5) mg/dL Estimated Creat Clear Estimated GFR ml/min Glucose (60-115) mg/dL Calcium (8.4-10.6) mg/dL Magnesium (1.5-2.6) mg/dL Total Bilirubin (0.1-1.5) mg/dL AST (12-35) U/L ALT (4-35) U/L Alkaline Phosphatase (40-150) U/L NT-Pro-B Natriuret Pep pg/mL Total Protein (6.0-8.3) g/dL Albumin (3.3-5.0) g/dL TSH 0.587 (0.270-4.200) uIU/mL POC Troponin I (0.01-0.04) ng/ml Imaging Data Chest x-ray: Attestation: I have reviewed the pertinent imaging results. My impression: No acute cardiopulmonary pathology on my preliminary read. Radiologist's impression: Patient: JUAN C GARCÍA Facility:?[facility] Patient ID:?[id number] Site Patient ID:?[id number]. Site :?[id number] Study:?XRay Chest PCXR-03/30/2022 3:22:09 PM Ordering Physician:Mahsa Torres Final Report: HISTORY: Arrhythmia. TECHNIQUE: One view of the chest. COMPARISON: 12/27/2021. FINDINGS: Sternotomy. The heart size is stable. No focal lung infiltrate or acute pulmonary edema. No pneumothorax or pleural effusion. Degenerative changes of the shoulders. IMPRESSION: No acute disease or significant change. Dictated by Celio Siddiqi MD @ 03/30/2022 3:36:36 PM Dictated by: Celio Siddiqi MD @ 03/30/2022 15:36:40 (Electronic Signature) ECG Data Attestation: I personally reviewed and interpreted this ECG as follows: (Atrial flutter with variable block, 108 beats per minute. Q-waves inferiorly Q-waves V3 through V6.) Interpretation: Repeat EKG at 4:26 p.m. is showing atrial flutter with variable block, current rate is 97 beats per minute. Critical Care Time Critical Care Time Critical Care Time: No Discharge Plan Discharge Clinical Impression: History of atrial fibrillation, Atrial flutter with rapid ventricular response Patient Disposition: Home, Self-Care Condition: Stable Instructions: Atrial Flutter (ED) Additional Instructions: Start the increased dose of the Cardizem tomorrow, new prescription for increased dose sent to the pharmacy. Do not take the metoprolol at this time. Diltiazem or Cardizem per the keyboard teacher will help achieve better rate control with atrial flutter. Keep your follow-up appointments that you state you have this coming week, clinic Friday morning and followup at [facility] later in the week. Should you develop any chest pain, difficulty breathing or shortness of breath, note that her heart rate is staying consistently over 120 beats per minute, need to be re-evaluated. Activity Level: Activity as Tolerated Prescriptions: New diltiazem HCl 240 mg capsule,ext.rel 24h degradable 240 mg PO DAILY Qty: 30 1RF No Action levothyroxine 150 mcg tablet 150 mcg PO DAILY nitroglycerin 0.4 mg tablet, sublingual 0.4 mg sublingual Q5M PRN Label Comments: PLACE ONE TABLET UNDER TONGUE NEEDED FOR CHEST PAIN MAY REPEAT EVERY 5 MINUTES NEEDED nystatin [Nystop] 100,000 unit/gram powder 1 applic TOPICAL TID Label Comments: APPLY 1 STRIP TOPICALLY TO AFFECTED AREA THREE TIMES DAILY metformin 500 mg tablet extended release 24 hr 1,000 mg PO DAILY@18 meclizine [Antivert] 25 mg tablet,chewable 25 mg PO BID-TID PRN clotrimazole [Antifungal (clotrimazole)] 1 % cream 1 applic topical BID cholecalciferol (vitamin D3) 50 mcg (2,000 unit) capsule 50 mcg PO DAILY amoxicillin 500 mg capsule 2,000 mg PO PRN PRN Label Comments: TAKE 4 CAPSULE BY MOUTH 1 HOUR BEFORE DENTAL APPOINTMENT furosemide 20 mg tablet 20 mg PO MOWEFR@09 famotidine [Acid Motorcycle Maker (famotidine)] 20 mg tablet 20 mg PO HS ferrous sulfate 325 mg (65 mg iron) tablet 325 mg PO DAILY Eliquis 5 mg tablet 5 mg PO BID Qty: 60 0RF diltiazem HCl [DILT-XR] 120 mg Capsule,Ext.Rel 24h Degradable 120 mg PO DAILY Qty: 30 0RF simvastatin 20 mg tablet 10 mg PO HS Qty: 15 0RF amoxicillin 500 mg capsule 500 mg PO TID Qty: 15 0RF Follow Up/Referrals: Martinez Sal MD [Primary Care Provider] - Stand Alone Forms: [facility] Info Instructions
--- NOTE | 2022-03-30 14:56 | CRLHL7_ITS ---
For Patients: As a result of the Cures Act, medical imaging exams and procedure reports are released immediately into your electronic medical record. You may view this report before your referring provider. If you have questions, please contact your health care provider. HISTORY: Arrhythmia. TECHNIQUE: One view of the chest. COMPARISON: 12/27/2021. FINDINGS: Sternotomy. The heart size is stable. No focal lung infiltrate or acute pulmonary edema. No pneumothorax or pleural effusion. Degenerative changes of the shoulders. IMPRESSION: No acute disease or significant change. Dictated by Celio Siddiqi MD @ 03/30/2022 3:36:36 PM Dictated by: Celio Siddiqi MD @ 03/30/2022 15:36:40 (Electronically Signed)
[2022-03-30 15:18] LABS: Basophils Absolute Auto 0.03 K/uL (0.00-0.30); Basophils Percent Auto 0.5 % (0.0-3.0); Hematocrit 39.8 % (33.0-51.0); Immature Granulocytes Abs Auto 0.02 K/uL (0.00-0.30); Immature Granulocytes Pct Auto 0.3 %; Lymphocytes Percent Auto 14.1 % (20-44); Mean Corpuscular HGB Conc 33 gm/dL (32-36); Mean Corpuscular Hemoglobin 29 pg (26-34); Mean Corpuscular Volume 88 fL (80-100); Monocytes Percent Auto 8.3 % (0.0-11.0); Neutrophils Percent Auto 76.8 % (42.0-72.0); Platelet Count* 139 K/uL (140-440); RDW Coefficient of Variation % 14.9 % (11.5-15.5); Red Blood Count 4.51 m/uL (4.00-5.20); White Blood Count* 6.17 K/uL (4.50-11.00)
[2022-03-30 15:34] LABS: Albumin* 3.9 g/dL (3.3-5.0); Chloride* 104 mmol/L (96-114); Potassium* 4.5 mmol/L (3.6-5.1); Sodium* 137 mmol/L (135-149)
[2022-03-30 15:36] LABS: Creatinine* 1.4 mg/dL (0.5-1.5); Est. Creatinine Clearance* 26.95; Estimated Glomerular Filt Rate 38 ml/min
[2022-03-30 15:37] LABS: Alanine Aminotransferase* 29 U/L (4-35); Alkaline Phosphatase* 115 U/L (40-150); Aspartate Amino Transferase* 40 U/L (12-35); Bilirubin Total* 0.5 mg/dL (0.1-1.5); Blood Urea Nitrogen* 26 mg/dL (7-30); Calcium* 9.4 mg/dL (8.4-10.6); Carbon Dioxide* 26 mmol/L (20-32); Glucose* 203 mg/dL (60-115); Slide Review Reflex No; Total Protein* 6.6 g/dL (6.0-8.3)
[2022-03-30 15:38] LABS: Magnesium* 1.6 mg/dL (1.5-2.6)
[2022-03-30 15:47] LABS: Troponin, Point-of-Care* 0.02 ng/ml (0.01-0.04)
[2022-03-30 15:50] LABS: NT Pro B Type NatriureticPept* 5120 pg/mL
[2022-03-30 16:38] LABS: TSH With Reflex to FT4* 0.587 uIU/mL (0.270-4.200)
[2022-03-30] MEDS: 0.9 % SODIUM CHLORIDE 250 ml 250 ML IV (17:38)
[2022-03-30] MEDS: dilTIAZem 30 MG TABLET PO (18:24)
== END 2022-03-30 18:50 | disposition home or self-care (01) ==
PROVIDERS: Emergency Provider Family Medicine; PCP Family Medicine
DX: I48.20 Chronic atrial fibrillation, unspecified (principal)
CPT/HCPCS: 36415; 71045; 80053; 83735; 83880; 84443; 84484; 85025; 93005; 94761; 99285; A9270; J7050

== ENCOUNTER 2022-03-31 14:15 | Inpatient (IN) | payer MEDICARE, SELFPAY ==
[2022-03-31] VITALS (62 sets, daily range): BP systolic 90–142; BP diastolic 57–115; PULSE 51–142; RESP 18–20; TEMP 36.1–36.6; O2SAT 91–98; BMI 42.0
--- NOTE | 2022-03-31 14:23 | ED_ITS ---
HPI - General Adult General Time Seen by Provider: 14:24 Date Seen: 03/31/22 Chief complaint: Arrhythmia/Palpitations Stated complaint: High pulse, shortness of breath, concerns about BS Time Seen by Provider: 03/31/22 14:23 Source: patient, RN notes reviewed and old records reviewed Mode of arrival: ambulatory Limitations: no limitations History of Present Illness HPI narrative: Marked is very pleasant 77-year-old female history of atrial fibrillation seen yesterday by my colleague Dr. Rodriguez returns to the emergency room today for elevated heart rate. Patient was seen yesterday for atrial fibrillation with RVR and with IV diltiazem followed by p.o. diltiazem increase she was rate controlled and did well upon discharge and overnight. This morning she noted the onset of her rapid heart rate as she states she was feeling a little bit lightheaded. Her heart was in the 120s and thus she came back to the emergency room. She denies any chest pain, recent fever or chills. She denies any urinary pain. Patient also notes that her sugars have been elevated lately. She is honest and stating that because her hemoglobin A1c was actually improved to 7.1 she and her doctor made the decision not to have her check blood sugars anymore. However, she has been doing cardiac rehab this week and they been but checking blood sugars and blood sugar was elevated greater than 300 on Thursday 03/29. She is on metformin for diabetes. No recent fevers or chills. Patient had originally been on diltiazem extended release 180 daily and was increased to 240 mg to be started this morning. She had 2 extended release 120 mg tablets and took both of those this morning. She had been taken off her metoprolol yesterday. 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)) ferrous sulfate 325 mg (65 mg 325 mg PO DAILY 12/27/21 03/31/22 iron) tablet furosemide 20 mg tablet 20 mg PO MOWEFR@12/27/21 03/31/22 levothyroxine 150 mcg tablet 150 mcg PO DAILY 12/27/21 03/31/22 meclizine 25 mg chewable tablet 25 mg PO BID-TID PRN 12/27/21 03/31/22 (Antivert) metformin 500 mg tablet,extended 1,000 mg PO DAILY@18 12/27/21 03/31/22 release 24 hr nitroglycerin 0.4 mg sublingual 0.4 mg sublingual Q5M PRN 12/27/21 03/31/22 tablet rosuvastatin 10 mg tablet 10 mg PO DAILY 03/31/22 03/31/22 trimethoprim 100 mg tablet 100 mg PO DAILY 03/31/22 03/31/22 Previous Rx's Medication Instructions Recorded amoxicillin 500 mg capsule 500 mg PO TID #15 caps 12/29/21 apixaban 5 mg tablet (Eliquis) 5 mg PO BID #60 tabs 12/29/21 diltiazem HCl 240 mg 240 mg PO DAILY #30 caps 03/30/22 capsule,extended release 24 hr, controlled Allergies Allergy/AdvReac Type Severity Reaction Status Date / Time atorvastatin Allergy Verified 03/30/22 14:16 cephalexin Allergy Verified 03/30/22 14:16 ciprofloxacin Allergy Swelling Verified 03/30/22 14:16 of Lip/Tongue/Throat clindamycin Allergy Verified 03/30/22 14:16 Fish Containing Products Allergy Verified 03/30/22 14:16 ibuprofen Allergy Verified 03/30/22 14:16 Sulfa (Sulfonamide Allergy Verified 03/30/22 14:16 Antibiotics) sulfamethoxazole Allergy Verified 03/30/22 14:16 [From Bactrim] trimethoprim [From Bactrim] Allergy Verified 03/30/22 14:16 Review of Systems Status of ROS: Reports: 6 or more systems reviewed and unremarkable except as noted in History and below Const: Reports: change in weight (Weight loss since use of Lasix. Weight improved.); Denies: fever or chills Eyes: Denies: change in vision ENMT: Denies: throat pain Cardio: Reports: swelling of feet/ankles (Chronic but improved) and shortness of breath with exertion (Chronic); Denies: chest pain Resp: Reports: shortness of breath (Chronic); Denies: cough GI: Denies: abdominal pain, vomiting or diarrhea : Denies: painful urination, urinary frequency or urinary urgency Musculo: Denies: back pain PFSH PFS Medical History Abnormal echocardiogram Atrial fibrillation with rapid ventricular response Atrial flutter with rapid ventricular response Benign paroxysmal positional vertigo Bilateral sensorineural hearing loss CKD stage 3 due to type 2 diabetes mellitus Coronary artery disease Diabetes mellitus type 2 in obese Diastolic CHF, chronic Essential hypertension Gastroesophageal reflux disease Hyperlipidemia associated with type 2 diabetes mellitus Left atrial enlargement Lower extremity edema Mitral valve sclerosis Mitral valve stenosis, severe Morbid obesity with BMI of 45.0-49.9, adult Normocytic anemia Obstructive sleep apnea on CPAP Paroxysmal atrial fibrillation with rapid ventricular response Primary hypothyroidism Tinnitus of both ears Tricuspid regurgitation Surgical History H/O aortic valve replacement History of hysterectomy History of right hip replacement Previous section Status post appendectomy Status post cholecystectomy Status post left knee replacement Status post right knee replacement Social History Highest level of school completed/degree received: Bachelor's degree Smoking Status: Former smoker Do you use any of these nicotine containing products: None Second hand tobacco smoke exposure: No How often do you have a drink containing alcohol: 2-3 times a week Alcohol type: beer and wine How many standard drinks containing alcohol do you have on a typical day: 1 or 2 How often do you have six or more drinks on one occasion: Never AUDIT-C Alcohol total score: 3 Non-prescribed substance use: denies use Caffeine: No service: No Exam Narrative: Exam Narrative: Patient is alert and oriented. Very pleasant woman well-spoken. No acute d istress. Heart rate slows to 120 at this time. Heart with a rapid rate but fairly regular rhythm upon auscultation. Lungs are clear. Abdomen soft nontender. Lower extremities with 1+ peripheral edema. Pedal pulses are intact and symmetrical. Const: Vital Signs, click to edit/add: Vital Signs - 24 hr 03/31/22 14:29 03/31/22 14:29 03/31/22 14:25 Temperature 97 F L Pulse Rate 139 H Pulse Rate [Pulse Oximeter] 140 H Respiratory Rate 20 Blood Pressure Blood Pressure [Ri ght Forearm] 121/84 Pulse Oximetry 96 96 95 Oxygen Delivery Me thod Room Air 03/31/22 14:26 03/31/22 14:30 03/31/22 14:31 Temperature Pulse Rate 128 H 142 H 139 H Pulse Rate [Pulse Oximeter] Respiratory Rate Blood Pressure 121/84 120/84 Blood Pressure [Ri ght Forearm] Pulse Oximetry 93 93 96 Oxygen Delivery Me thod 03/31/22 14:45 03/31/22 15:00 03/31/22 15:01 Temperature Pulse Rate 134 H 122 H 121 H Pulse Rate [Pulse Oximeter] Respiratory Rate Blood Pressure 97/86 Blood Pressure [Ri ght Forearm] Pulse Oximetry 96 94 92 Oxygen Delivery Me thod 03/31/22 15:15 03/31/22 15:40 03/31/22 15:45 Temperature Pulse Rate 134 H 135 H 124 H Pulse Rate [Pulse Oximeter] Respiratory Rate Blood Pressure Blood Pressure [Ri ght Forearm] Pulse Oximetry 95 98 95 Oxygen Delivery Me thod 03/31/22 15:46 03/31/22 16:03 03/31/22 16:15 Temperature Pulse Rate 121 H 103 H 107 H Pulse Rate [Pulse Oximeter] Respiratory Rate Blood Pressure 118/74 118/65 Blood Pressure [Ri ght Forearm] Pulse Oximetry 95 96 94 Oxygen Delivery Me thod 03/31/22 16:16 03/31/22 16:30 03/31/22 16:32 Temperature Pulse Rate 94 78 Pulse Rate [Pulse Oximeter] Respiratory Rate Blood Pressure 121/82 104/79 Blood Pressure [Ri ght Forearm] Pulse Oximetry 92 96 96 Oxygen Delivery Me thod 03/31/22 16:45 03/31/22 16:46 Temperature Pulse Rate 75 68 Pulse Rate [Pulse Oximeter] Respiratory Rate Blood Pressure 121/67 Blood Pressure [Ri ght Forearm] Pulse Oximetry 95 95 Oxygen Delivery Me thod Documenting provider has reviewed patient's vital signs: yes Course Course Hospital Course: I do check previous values. Patient's magnesium was 1.6 yesterday, technically within normal limits but certainly not optimal level in the setting of atrial fibrillation. Patient's creatinine within normal limits yesterday. Recommending 1 g of magnesium at this time. Would also recommend diltiazem 10 mg IV followed by a drip to slow her rate down. Will also check COVID and urinalysis. Reevaluation(s) Reevaluation #1: Patient noted to be feeling improved on Cardizem drip. Will initiate Cardizem CD 1 20 mg for a total of 360 today. Plan is to taper off drip and hopefully be able to discharge home. Consultations Consultation #1: Had the pleasure of speaking with [facility] . Patient will have additional 120 mg extended-release Cardizem. Will taper patient off of drip. If successful she will then go home and start on Cardizem 360 daily for rate control. The specialist physician also suggested low-dose rapid acting metoprolol to be used if patient experiences a sustained heart rate greater than 110. This would be 25 mg p.r.n.. Vital Signs Vital signs: Initial Vital Signs Pulse Rate 139 H 03/31/22 14:25 Pulse Oximetry 95 03/31/22 14:25 Vital Signs Pulse Rate 139 H 03/31/22 14:25 Pulse Oximetry 95 03/31/22 14:25 Temperature 97 F L 03/31/22 14:29 Pulse Rate 68 03/31/22 16:46 Respiratory Rate 20 03/31/22 14:29 Blood Pressure 121/67 03/31/22 16:46 Pulse Oximetry 95 03/31/22 16:46 Oxygen Delivery Method 03/31/22 14:29 Medical Decision Making [facility] Narrative Medical decision making narrative: 1. Atrial flutter with RVR-improved with diltiazem 10 mg IV bolus followed by drip. Patient received an additional 120 mg in addition to her 240 mg she had taken this morning. We were able to successfully taper her off the drip with heart rate in the 80s for approximately 1 hour. However, her heart rate is now back into the 120s. She has a history of severe mitral stenosis and aortic stenosis. No evidence of underlying viral infection or urinary tract infection. We did not do a lot of laboratories today nor did we repeated chest x-ray given the fact the patient was just here yesterday. Unfortunately, instead of sending her home as was our plan we will admit her to the hospital for rate control. 2. Relative hypomagnesemia-2 g IV given in the ED today. Yesterday's value was 1.6 and improved to 1.8 today after 1 g. 2nd g is now given. 3. Disposition- patient did mention floor under the care of Dr. Hale, hospitalist. Troponin is negative x1. Medical Records Medical records reviewed: Yes I reviewed the patient's medical records Lab Data Lab results reviewed: Yes I reviewed the patient's lab results Labs: Lab Results 03/31/22 03/31/22 03/31/22 Range/Units 15:10 15:35 17:01 Magnesium 1.8 (1.5-2.6) mg/dL Troponin I 0.04 (0.01-0.04) ng/mL Urine Color Yellow (Yellow) Urine Appearance Clear (Clear) Urine pH 5.5 (5.0-8.5) Ur Specific [place] 1.025 (1.000-1.030) Urine Protein Negative (Negative) Urine Glucose (UA) Negative (Negative) Urine Ketones Negative (Negative) Urine Blood Negative (Negative) Urine Nitrite Negative (Negative) Urine Bilirubin Negative (Negative) Urine Urobilinogen 0.2 (0.2-1.0) Ur Leukocyte Esterase Negative (Negative) Urine RBC 0-2 (0-2) Urine WBC 0-2 (0-5) Ur Squamous Epith Cells None (None-Few) Urine Bacteria None (None) SARS-CoV-2 (PCR) Negative SARS-CoV-2 (Negative) Influenza Type A (PCR) Negative PCR FLU A (Negative) Influenza Type B (PCR) Negative PCR FLU B (Negative) RSV (PCR) Negative PCR RSV (Negative) ECG Data Attestation: I personally reviewed and interpreted this ECG as follows: Prior ECG tracings: available for review Interpretation: EKG 1. By my read shows likely atrial fibrillation versus atrial flutter with a rate of 139. Noted Q-wave in lead 3. Second EKG by my read shows atrial flutter with no acute ST or T-wave changes. Critical Care Time Critical Care Time Critical Care Time: Yes Attestation: The patient required my highest level preparedness to intervene emergently and I personally spent this critical care time directly and personally managing the patient. This critical care time included: Obtaining a history; Examining the patient; Pulse oximetry; Ordering and reviewing of studies; Arranging urgent treatment with development of a management plan; Evaluation of patients response to treatment; Frequent reassessment discussions with other providers. This critical care time was performed to assess and manage the high probability of imminent life-threatening deterioration that could result in multiorgan failure. It was exclusive of separate billable procedures and treating other patients and teaching time. Total Critical Care Time in Minutes: 45 Discharge Plan Discharge Clinical Impression: Atrial flutter Patient Disposition: Admitted As Inpatient Condition: Improved
[2022-03-31] MEDS: 0.9 % SODIUM CHLORIDE 500 ML 500 ML IV (15:43)
[2022-03-31] MEDS: MAGNESIUM SULFATE 2 GM/50 ML PIGGYBACK IVPB (15:43)
[2022-03-31] MEDS: dilTIAZem 5 MG/ML inj 10 MG IVP (15:44)
[2022-03-31] MEDS: dilTIAZem HCL 125 MG in 0.9 % SODIUM CHLORIDE 100 ml 100 ML IVPB (15:44)
[2022-03-31 15:47] LABS: Appearance Urine Clear (Clear); Bilirubin Urine Negative (Negative); Blood Urine Negative (Negative); Color Urine Yellow (Yellow); Glucose Urine Negative (Negative); Ketones Urine Negative (Negative); Leukocyte Esterase Urine Negative (Negative); Nitrite Urine Negative (Negative); Protein Urine Negative (Negative); Specific Gravity Urine 1.025 (1.000-1.030); Urobilinogen Urine 0.2 (0.2-1.0); pH Urine 5.5 (5.0-8.5)
[2022-03-31 15:56] LABS: PCR FLU A Negative PCR FLU A (Negative); PCR FLU B Negative PCR FLU B (Negative); PCR RSV Negative PCR RSV (Negative)
[2022-03-31 15:57] LABS: RBC Urine 0-2 (0-2); WBC Urine 0-2 (0-5)
[2022-03-31 15:57] LABS: SARS PCR* Negative SARS-CoV-2 (Negative)
[2022-03-31 17:28] LABS: Magnesium* 1.8 mg/dL (1.5-2.6)
[2022-03-31 17:40] LABS: Troponin I* 0.04 ng/mL (0.01-0.04)
--- NOTE | 2022-03-31 17:51 | ED.NURSE ---
[facility] on-call [employer] paged.
[2022-03-31] MEDS: dilTIAZem 120 MG CAP.ER.24H PO (18:18)
--- NOTE | 2022-03-31 20:07 | ED.NURSE ---
Report given to IESHA Blackmon. Pt will go to [facility].
--- NOTE | 2022-03-31 20:15 | ED.NURSE ---
HS to bring Pt to floor. Denies pain. Remainder of Diltiazem gtt sent with Pt--off at this time.
--- NOTE | 2022-03-31 20:36 | PM.IMHP1 ---
Hospitalist- H&P: HPI History of Present Illness Date Seen: 03/31/22 Chief complaint: High pulse, shortness of breath, concerns about BS Narrative: ADMISSION HISTORY AND PHYSICAL - HOSPITALIST CHIEF COMPLAINT: HPI: Ms. Mukherjee is a 77 y.o. white retired female from [place] who was recently at [facility] and on 03/01/2022 underwent a TAVR to treat her severe aortic stenosis (2nd AV replacement) and she was successfully discharged 2 days later. She carries a diagnosis of coronary artery disease with chronic diastolic heart failure and medically complicated obesity with a current BMI of 43 kg/M2 with treated hypertension, type 2 diabetes and paroxysmal atrial fibrillation on anticoagulation. She has been to the ER three days in a row (03/29 [place], 03/30 [facility], today NF) for racing heart and SOB. each time noted to be in aflutter with rvr. she is followed by [facility] and they instructed on increasing doses of diltizem (120 --> 240 --> 360 today). This am she took her instructed 240 but still experienced racing heart rate - Dr. Valdez gave her an additional 120 here in the ER (360 total) and needed the IV DILT drip to get HR <110 (which is [facility] goal). no evidence of acute CHF or ACS. pt does state she has gained a few lbs over the last few days. takes lasix daily. takes eliquis bid. no recent metoprolol (but had previously been on this prior to the TAVR) last echo was in 01/03 when admitted here for RVR. CT angiogram prior to last month's TAVR was acceptable with noted mild CAD. She does note her blood sugars have been elevated to 300. she is a well controlled diabetic on monotherapy with Metformin. I'VE UPDATED THE PFSH, MEDICATIONS AND ALLERGIES IN THE EXPANSE TABS. INVESTIGATIONS: LABS/MICRO/ECG/IMAGING AFEBRILE SINCE ARRIVAL IN THE ED BLOOD PRESSURE HAS BEEN SOMEWHAT SOFT SYSTOLIC as high as 123 OVER DIASTOLIC 92 BUT BUT SYSTOLIC LOW 97 AND DIASTOLIC 65 PULSE RATE HIGH 139 AND CURRENTLY 120S AFTER A SMALL REPRIEVE IN THE 70S AND 80S PULSE OX 95% ON ROOM AIR CBC was not repeated today, yesterday was unremarkable Patient is on Eliquis thus INR was not checked Chemistries were not repeated, however today's troponin is still negative at 0.04 and magnesium was 1.8 and was replaced BNP was not checked Urine unremarkable today Cruz respiratory panel negative Chest x-ray yesterday Unremarkable Echo done in December of 2021 Final Impressions: ? 1. Normal left ventricular size, severely increased wall thickness in a concentric pattern, normal global and regional systolic function, calculated EF of 58 %. 2. The aortic valve is an abnormal functioning 23 mm Trifecta bioprosthesis AVR, mild to moderate stenosis and mild regurgitation. The aortic valve peak velocity is 2.7 m/s, the peak gradient is 30 mmHg, and the mean gradient is 19 mmHg. The aortic valve area is 1.26 cm?? with a dimensionless index of 0.37. The stroke volume index is 26.1 ml/m??. 3. The mitral valve is sclerotic, mild mitral regurgitation. 4. Tricuspid valve is non coapting. Severe tricuspid regurgitation. 5. Mildly increased estimated pulmonary pressures by tricuspid regurgitation velocity and right atrial pressure (35 mmHg plus RAP which is estimated to be high normal based on IVC geometry). 6. The ascending aorta is dilated with a maximal diameter of 4.1 cm. The aortic sinus is dilated with a maximal diameter of 4.4 cm. ? Comparison Compared to prior exam images and report of 08/08/2021: - Tricuspid regurgitation has increased. REVIEW OF SYSTEMS: 12-POINT ROS COMPLETED WITH PATIENT AND NEGATIVE UNLESS OTHERWISE STATED IN HPI OR BELOW. PHYSICAL EXAM: CODE STATUS: full code CONSTITUTIONAL: CONVERSIVE, GOOD HISTORIAN. A/O. KNOWS SETTING AND CONTEXT. VITAL SIGNS: SEE RECORD. HEENT: NORMOCEPHALIC, ATRAUMATIC. PERRL, EOMI, CONJUNCTIVAE PINK, NO SCLERAL ICTERUS. EARS AND NOSE EXTERNALLY NORMAL. PHARYNX NORMAL. NECK: NO CAROTID BRUIT, NO THYROMEGALY, NO ADENOPATHY. CHEST: CLEAR TO AUSCULTATION BILATERALLY - No wheezes HEART: irregular; tachy. holosystolic ejection murmur noted. No JVD. EDEMA 1+ MUSCULOSKELETAL: NO GROSS JOINT DEFORMITY OR SWELLING. NEURO: CRANIAL NERVES INTACT. GROSSLY INTACT. NO ASYMMETRIC FINDINGS. SKIN: NO RASHES, PETECHIAE, CONCERNING CHANGES PSYCHIATRIC: EUTHYMIC. ADMIT TO MEDSURG: CCU DVT:eliquis BID GI: PO INTAKE TIME SPENT: 70 MINUTES EXAMINING PATIENT, CONFERRING WITH FAMILY AND PATIENT, CARE STAFF, DEVELOPING CARE PLAN [facility] Medical History (Updated 03/31/22 @ 21:50 by Eve Hale MD) CONSTANTINE (acute kidney injury) Atrial fibrillation with rapid ventricular response Atrial flutter with rapid ventricular response Benign paroxysmal positional vertigo Bilateral sensorineural hearing loss Chronic UTI CKD stage 3 due to type 2 diabetes mellitus Coronary artery disease Diabetes mellitus type 2 in obese Diastolic CHF, chronic E-coli UTI Essential hypertension Gastroesophageal reflux disease History of atrial fibrillation Hyperlipidemia associated with type 2 diabetes mellitus Left atrial enlargement Lower extremity edema Mitral valve sclerosis Mitral valve stenosis, severe Morbid obesity with BMI of 40.0-44.9, adult Morbid obesity with BMI of 45.0-49.9, adult Normocytic anemia Obstructive sleep apnea on CPAP Primary hypothyroidism Tinnitus of both ears Tricuspid regurgitation Surgical History (Updated 03/31/22 @ 21:40 by Eve Hale MD) H/O aortic valve replacement History of hysterectomy History of right hip replacement Previous section Status post appendectomy Status post cholecystectomy Status post left knee replacement Status post right knee replacement Status post transcatheter aortic valve replacement Social History Highest level of school completed/degree received: Bachelor's degree Smoking Status: Former smoker Do you use any of these nicotine containing products: None Second hand tobacco smoke exposure: No How often do you have a drink containing alcohol: 2-4 times a month Alcohol type: beer and wine How many standard drinks containing alcohol do you have on a typical day: 1 or 2 How often do you have six or more drinks on one occasion: Never AUDIT-C Alcohol total score: 2 Non-prescribed substance use: denies use Caffeine: No service: No Meds Home Medications and Allergies Home Medications Medication Instructions Recorded Confirmed Type amoxicillin 500 mg capsule 2,000 mg PO PRN PRN 12/27/21 03/31/22 History cholecalciferol (vitamin D3) 50 50 mcg PO DAILY 12/27/21 03/31/22 History mcg (2,000 unit) capsule famotidine 20 mg tablet (Acid 20 mg PO HS 12/27/21 03/31/22 History 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 (famotidine)) ferrous sulfate 325 mg (65 mg 325 mg PO DAILY 12/27/21 03/31/22 History iron) tablet furosemide 20 mg tablet 20 mg PO MOWEFR@12/27/21 03/31/22 History levothyroxine 150 mcg tablet 150 mcg PO DAILY 12/27/21 03/31/22 History meclizine 25 mg chewable tablet 25 mg PO BID-TID PRN 12/27/21 03/31/22 History (Antivert) metformin 500 mg tablet,extended 1,000 mg PO DAILY@18 12/27/21 03/31/22 History release 24 hr nitroglycerin 0.4 mg sublingual 0.4 mg sublingual Q5M PRN 12/27/21 03/31/22 History tablet rosuvastatin 10 mg tablet 10 mg PO DAILY 03/31/22 03/31/22 History trimethoprim 100 mg tablet 100 mg PO DAILY 03/31/22 03/31/22 History Allergies Allergy/AdvReac Type Severity Reaction Status Date / Time atorvastatin Allergy Verified 03/30/22 14:16 cephalexin Allergy Verified 03/30/22 14:16 ciprofloxacin Allergy Swelling Verified 03/30/22 14:16 of Lip/Tongue/Throat clindamycin Allergy Verified 03/30/22 14:16 Fish Containing Products Allergy Verified 03/30/22 14:16 ibuprofen Allergy Verified 03/30/22 14:16 Sulfa (Sulfonamide Allergy Verified 03/30/22 14:16 Antibiotics) sulfamethoxazole Allergy Verified 03/30/22 14:16 [From Bactrim] trimethoprim [From Bactrim] Allergy Verified 03/30/22 14:16 Exam Const: Vital Signs, click to edit/add: Vital Signs - 24 hr 03/31/22 14:29 03/31/22 14:29 03/31/22 14:25 Temperature 97 F L Pulse Rate 139 H Pulse Rate [Pulse Oximeter] 140 H Respiratory Rate 20 Blood Pressure Blood Pressure [Ri ght Forearm] 121/84 Pulse Oximetry 96 96 95 Oxygen Delivery Me thod Room Air 03/31/22 14:26 03/31/22 14:30 03/31/22 14:31 Temperature Pulse Rate 128 H 142 H 139 H Pulse Rate [Pulse Oximeter] Respiratory Rate Blood Pressure 121/84 120/84 Blood Pressure [Ri ght Forearm] Pulse Oximetry 93 93 96 Oxygen Delivery Me thod 03/31/22 14:45 03/31/22 15:00 03/31/22 15:01 Temperature Pulse Rate 134 H 122 H 121 H Pulse Rate [Pulse Oximeter] Respiratory Rate Blood Pressure 97/86 Blood Pressure [Ri ght Forearm] Pulse Oximetry 96 94 [facility] 03[facility] 15:15 03/31/22 15:40 03/31/22 15:45 Temperature Pulse Rate 134 H 135 H 124 H Pulse Rate [Pulse Oximeter] Respiratory Rate Blood Pressure Blood Pressure [Ri ght Forearm] Pulse Oximetry 95 98 95 Oxygen Delivery [facility] 03/31/22 15:46 03/31/22 16:03 03/31/22 16:15 Temperature Pulse Rate 121 H 103 H 107 H Pulse Rate [Pulse Oximeter] Respiratory Rate Blood Pressure 118/74 118/65 Blood Pressure [Ri ght Forearm] Pulse Oximetry 95 96 94 Oxygen Delivery [facility] 03/31/22 16:16 03/31/22 16:30 03/31/22 16:32 Temperature Pulse Rate 94 78 Pulse Rate [Pulse Oximeter] Respiratory Rate Blood Pressure 121/82 104/79 Blood Pressure [Ri ght Forearm] Pulse Oximetry 92 96 96 Oxygen Delivery [facility] 03/31/22 16:45 03/31/22 16:46 Temperature Pulse Rate 75 68 Pulse Rate [Pulse Oximeter] Respiratory Rate Blood Pressure 121/67 Blood Pressure [Ri ght Forearm] Pulse Oximetry 95 95 Oxygen Delivery [facility] Hospitalist - H&P: Result Labs Labs: Cardiac Enzymes 03/31/22 Range/Units 17:01 Troponin I 0.04 (0.01-0.04) ng/mL Urine 03/31/22 Range/Units 15:35 Urine Color Yellow (Yellow) Urine Appearance Clear (Clear) Urine pH 5.5 (5.0-8.5) Ur Specific [place] 1.025 (1.000-1.030) Urine Protein Negative (Negative) Urine Glucose (UA) Negative (Negative) Assessment and Plan Assessment and plan (1) Atrial flutter with rapid ventricular response: Problem comment: -cause unclear. acute CHF with new valve? meds not optimized? hyperglycemia cause or result? Not a drinker, compliant with meds, no obvious infection. -IV diltiazem, tomorrow's dose 360 mg orally -wean IV drip when possible -metoprolol scheduled with parameters -continue eliquis -checking BNP - last value was 300 in October 2021 -consider increasing dose of Lasix if needed -update echocardiogram, CCU status, telemetry, continuous pulse ox -discuss with [facility] cards tomorrow -currently has cardiac event monitor on from [place] Status: Acute (2) Status post transcatheter aortic valve replacement: Problem comment: 03/01, [facility]. Second lifetime replacement. Status: Acute (3) Diastolic CHF, chronic: Problem comment: last echo 01/03 TAVR 03/05 Current dose Lasix is 20 mg p.o. q.a.m. Status: Acute (4) Coronary artery disease: Problem comment: s/p PCI 07/13/2004. VICENTE to Cx last angiogram was unremarkable (approx 2014) Coronary CT angiography 03/05 pre-TAVR, mild CAD Calcific plaques in the mid LAD cause mild stenosis. Status: Acute (5) Diabetes mellitus type 2 in obese: Problem comment: A1c has typically been around 7. On metformin monotherapy Accu-Cheks plus sliding scale insulin ordered Status: Acute (6) CKD stage 3 due to type 2 diabetes mellitus: Problem comment: Baseline is about 1.3-1.4. Status: Acute (7) Mitral valve stenosis, severe: Status: Chronic (8) Tricuspid regurgitation: Problem comment: Tricuspid valve is non coaptating. Severe tricuspid regurgitation. Status: Acute (9) Obstructive sleep apnea on CPAP: Problem comment: severe; followed by [facility] Status: Acute (10) Chronic UTI: Problem comment: daily suppressive trimethoprim Status: Acute (11) Ascending aorta dilatation: Problem comment: Ascending aorta is dilated with a maximal diameter of 4.1 cm. The aortic sinus is dilated with a maximal diameter of 4.4 cm. Status: Acute (12) Normocytic anemia: Status: Chronic (13) Gastroesophageal reflux disease: Status: Acute (14) Primary hypothyroidism: Problem comment: -continue current dose, TSH yesterday was at goal Status: Chronic (15) Benign paroxysmal positional vertigo: Status: Acute (16) Morbid obesity with BMI of 40.0-44.9, adult: Status: Acute
[2022-03-31] MEDS: APIXABAN 5 MG TABLET PO (21:59)
[2022-03-31] MEDS: FAMOTIDINE 20 MG TABLET PO (22:00)
[2022-03-31] MEDS: METOPROLOL TARTRATE 25 MG TABLET PO (22:55)
[2022-03-31 23:41] LABS: NT Pro B Type NatriureticPept* 4970 pg/mL
[2022-04-01] VITALS (25 sets, daily range): BP systolic 95–117; BP diastolic 54–81; PULSE 63–101; RESP 18; TEMP 36.3–36.6; O2SAT 88–96
[2022-04-01] MEDS: FUROSEMIDE 10 MG/ML inj 40 MG IVP (00:03)
[2022-04-01 05:19] LABS: Hemoglobin A1C* 8.29 % (0-5.6)
[2022-04-01] MEDS: LEVOTHYROXINE 75 MCG TABLET 150 MCG PO (05:41)
--- NOTE | 2022-04-01 05:46 | PC.NURSE ---
Addendum entered by Neymar Ulloa RN 04/01/22 06:42: Pt also received lasix last night, voided a couple liters, weight down over 4# Original Note: admission : Pt had afib rvr upon admission thus diltiazem drip was restarted up to 10mg/hr, afib rvr rate 110-140,around 0100 metoprolol given and drip was stopped, tele has been aflutter 60-70s and afib 70-90s, just up to commode hr 80-110s.
[2022-04-01] MEDS: SODIUM CHLORIDE 0.9 % (FLUSH) 10 ML SYRINGE IVF ×5 (06:09→21:25)
--- NOTE | 2022-04-01 07:00 | CRLHL7_ITS ---
For Patients: As a result of the Century Cures Act, medical imaging exams and procedure reports are released immediately into your electronic medical record. You may view this report before your referring provider. If you have questions, please contact your health care provider. INDICATION: Abnormal cardiac rhythm. Congestive heart failure COMPARISON: March 30, 2022 TECHNIQUE: Single-view study FINDINGS: TUBES AND LINES: None. HEART AND MEDIASTINUM: The heart size is normal. The mediastinal contour appears normal for patient age.Sternotomy LUNGS AND PLEURAL SPACES: Vascular and interstitial prominence consistent with mild congestive heart failure. No pleural effusion or pneumothorax. OSSEOUS STRUCTURES: Age-appropriate appearance. No acute focal finding. IMPRESSION: Vascular and interstitial prominence likely representing congestive heart failure. This is new compared to the prior exam. Dictated by Rafa George MD @ 04/01/2022 7:36:53 AM (Electronically Signed)
[2022-04-01 07:45] LABS: HCO3 VBG 28 mmol/L (21-28); PCO2 VBG 42 mmHG (40-50); PO2 VBG 48.6 mmHG (25-47); pH VBG 7.428 (7.32-7.43)
[2022-04-01 07:53] LABS: Mean Corpuscular HGB Conc 32 gm/dL (32-36); Mean Corpuscular Hemoglobin 29 pg (26-34); Mean Corpuscular Volume 88 fL (80-100); Platelet Count* 145 K/uL (140-440); White Blood Count* 5.17 K/uL (4.50-11.00)
[2022-04-01 08:01] LABS: Slide Review Reflex No
[2022-04-01 08:08] LABS: Chloride* 102 mmol/L (96-114); Sodium* 135 mmol/L (135-149)
[2022-04-01 08:10] LABS: Creatinine* 1.4 mg/dL (0.5-1.5); Est. Creatinine Clearance* 26.95; Estimated Glomerular Filt Rate 38 ml/min
[2022-04-01 08:11] LABS: Blood Urea Nitrogen* 24 mg/dL (7-30); Calcium* 8.6 mg/dL (8.4-10.6); Carbon Dioxide* 25 mmol/L (20-32); Glucose* 212 mg/dL (60-115); Magnesium* 1.7 mg/dL (1.5-2.6)
[2022-04-01 08:23] LABS: Troponin I* 0.04 ng/mL (0.01-0.04)
[2022-04-01 08:28] LABS: NT Pro B Type NatriureticPept* 2720 pg/mL
[2022-04-01] MEDS: ROSUVASTATIN CALCIUM 10 MG TABLET PO (08:28)
[2022-04-01] MEDS: dilTIAZem 120 MG CAP.ER.24H 360 MG PO (08:28)
[2022-04-01] MEDS: FUROSEMIDE 20 MG TABLET PO (08:29)
[2022-04-01] MEDS: APIXABAN 5 MG TABLET PO ×2 (08:29→21:13)
[2022-04-01] MEDS: FERROUS SULFATE 325 MG TABLET PO (08:29)
--- NOTE | 2022-04-01 09:10 | PM.IMPN1 ---
Progress Note: A&P Assessment and plan (1) Atrial flutter with rapid ventricular response: Problem details: -cause unclear. acute CHF with new valve? meds not optimized? hyperglycemia cause or result? Not a drinker, compliant with meds, no obvious infection. -IV diltiazem, tomorrow's dose 360 mg orally -wean IV drip when possible -metoprolol scheduled with parameters -continue eliquis -checking BNP - last value was 300 in October 2021 -consider increasing dose of Lasix if needed -update echocardiogram, CCU status, telemetry, continuous pulse ox -discuss with [facility] cards tomorrow -currently has cardiac event monitor on from [place] Status: Acute (2) Diastolic CHF, chronic: Problem details: last echo 01/03 TAVR 03/05 Current dose Lasix is 20 mg p.o. q.a.m. Status: Acute (3) Chronic UTI: Problem details: daily suppressive trimethoprim Status: Acute (4) Status post transcatheter aortic valve replacement: Problem details: 03/01, [facility]. Second lifetime replacement. Status: Acute (5) Obstructive sleep apnea on CPAP: Problem details: severe; followed by [facility] Status: Acute (6) Gastroesophageal reflux disease: Status: Acute (7) Diabetes mellitus type 2 in obese: Problem details: A1c has typically been around 7. On metformin monotherapy Accu-Cheks plus sliding scale insulin ordered Status: Acute (8) Benign paroxysmal positional vertigo: Status: Acute (9) CKD stage 3 due to type 2 diabetes mellitus: Problem details: Baseline is about 1.3-1.4. Status: Acute (10) Coronary artery disease: Problem details: s/p PCI 07/13/2004. VICENTE to Cx last angiogram was unremarkable (approx 2014) Coronary CT angiography 03/05 pre-TAVR, mild CAD Calcific plaques in the mid LAD cause mild stenosis. Status: Acute (11) Primary hypothyroidism: Problem details: -continue current dose, TSH yesterday was at goal Status: Chronic Plan Plan for 04/01 1. Acute diastolic CHF exacerbation; dc po diuretic; IV lasix 20 mg X2; electrolyte replacement; echo; CXR showing pulmonary vascular congestion 2. Aflutter w/RVR, mild hypotension; give albumin infusion, decrease diltiazem 360 mg to 240 mg; hold statin; Echo today; dc q6h metoprolol; start metoprolol XL tomorrow with hold parameters 3. Type II DM; hold metformin; start levemir 5 units subq qam; continue sliding scale Barriers to discharge; echo; needs IV diuresis and rate control Code-full DVT on eliquis Time Spent With Patient Total time spent: 40 Subjective Date Seen: 04/01/22 Interval history: patient endorses SOB with activity but not at rest diuresed well last night denies chest pain Exam Narrative: Exam Narrative: Gen: NAD HEENT: NCAT EOMI MMM CV Tachy s1 s2 lungs: +crackles Abd: Soft, nt, nd Ext 2+ edema Const: Vital Signs, click to edit/add: Vital Signs - 24 hr 03/31/22 14:29 03/31/22 14:29 03/31/22 14:25 Temperature 97 F L Pulse Rate 139 H Pulse Rate [Pulse Oximeter] 140 H Pulse Rate [Right Radial] Pulse Rate [orthos tatic lying] Pulse Rate [orthos tatic sitting] Pulse Rate [orthos tatic standing] Respiratory Rate 20 Blood Pressure Blood Pressure [Ri ght Arm] Blood Pressure [Ri ght Forearm] 121/84 Blood Pressure [or thostatic lying] Blood Pressure [or thostatic sitting] Blood Pressure [or thostatic standing ] Pulse Oximetry 96 96 95 Oxygen Delivery Me thod Room Air 03/31/22 14:26 03/31/22 14:30 03/31/22 14:31 Temperature Pulse Rate 128 H 142 H 139 H Pulse Rate [Pulse Oximeter] Pulse Rate [Right Radial] Pulse Rate [orthos tatic lying] Pulse Rate [orthos tatic sitting] Pulse Rate [orthos tatic standing] Respiratory Rate Blood Pressure 121/84 120/84 Blood Pressure [Ri ght Arm] Blood Pressure [Ri ght Forearm] Blood Pressure [or thostatic lying] Blood Pressure [or thostatic sitting] Blood Pressure [or thostatic standing ] Pulse Oximetry 93 93 96 Oxygen Delivery Me thod 03/31/22 14:45 03/31/22 15:00 03/31/22 15:01 Temperature Pulse Rate 134 H 122 H 121 H Pulse Rate [Pulse Oximeter] Pulse Rate [Right Radial] Pulse Rate [orthos tatic lying] Pulse Rate [orthos tatic sitting] Pulse Rate [orthos tatic standing] Respiratory Rate Blood Pressure 97/86 Blood Pressure [Ri ght Arm] Blood Pressure [Ri ght Forearm] Blood Pressure [or thostatic lying] Blood Pressure [or thostatic sitting] Blood Pressure [or thostatic standing ] Pulse Oximetry 96 94 92 Oxygen Delivery Me thod 03/31/22 15:15 03/31/22 15:40 03/31/22 15:45 Temperature Pulse Rate 134 H 135 H 124 H Pulse Rate [Pulse Oximeter] Pulse Rate [Right Radial] Pulse Rate [orthos tatic lying] Pulse Rate [orthos tatic sitting] Pulse Rate [orthos tatic standing] Respiratory Rate Blood Pressure Blood Pressure [Ri ght Arm] Blood Pressure [Ri ght Forearm] Blood Pressure [or thostatic lying] Blood Pressure [or thostatic sitting] Blood Pressure [or thostatic standing ] Pulse Oximetry 95 98 95 Oxygen Delivery Tx thod 03/31/22 15:46 03/31/22 16:03 03/31/22 16:15 Temperature Pulse Rate 121 H 103 H 107 H Pulse Rate [Pulse Oximeter] Pulse Rate [Right Radial] Pulse Rate [orthos tatic lying] Pulse Rate [orthos tatic sitting] Pulse Rate [orthos tatic standing] Respiratory Rate Blood Pressure 118/74 118/65 Blood Pressure [Ri ght Arm] Blood Pressure [Ri ght Forearm] Blood Pressure [or thostatic lying] Blood Pressure [or thostatic sitting] Blood Pressure [or thostatic standing ] Pulse Oximetry 95 96 94 Oxygen Delivery Tx thod 03/31/22 16:16 03/31/22 16:30 03/31/22 16:32 Temperature Pulse Rate 94 78 Pulse Rate [Pulse Oximeter] Pulse Rate [Right Radial] Pulse Rate [orthos tatic lying] Pulse Rate [orthos tatic sitting] Pulse Rate [orthos tatic standing] Respiratory Rate Blood Pressure 121/82 104/79 Blood Pressure [Ri ght Arm] Blood Pressure [Ri ght Forearm] Blood Pressure [or thostatic lying] Blood Pressure [or thostatic sitting] Blood Pressure [or thostatic standing ] Pulse Oximetry 92 96 96 Oxygen Delivery Me thod 03/31/22 16:45 03/31/22 16:46 03/31/22 16:47 Temperature Pulse Rate 75 68 81 Pulse Rate [Pulse Oximeter] Pulse Rate [Right Radial] Pulse Rate [orthos tatic lying] Pulse Rate [orthos tatic sitting] Pulse Rate [orthos tatic standing] Respiratory Rate Blood Pressure 121/67 Blood Pressure [Ri ght Arm] Blood Pressure [Ri ght Forearm] Blood Pressure [or thostatic lying] Blood Pressure [or thostatic sitting] Blood Pressure [or thostatic standing ] Pulse Oximetry 95 95 94 Oxygen Delivery Me thod 03/31/22 17:00 03/31/22 17:04 03/31/22 17:17 Temperature Pulse Rate 79 70 137 H Pulse Rate [Pulse Oximeter] Pulse Rate [Right Radial] Pulse Rate [orthos tatic lying] Pulse Rate [orthos tatic sitting] Pulse Rate [orthos tatic standing] Respiratory Rate Blood Pressure Blood Pressure [Ri ght Arm] Blood Pressure [Ri ght Forearm] Blood Pressure [or thostatic lying] Blood Pressure [or thostatic sitting] Blood Pressure [or thostatic standing ] Pulse Oximetry 95 95 96 Oxygen Delivery Me thod 03/31/22 17:19 03/31/22 17:30 03/31/22 17:32 Temperature Pulse Rate 133 H 66 67 Pulse Rate [Pulse Oximeter] Pulse Rate [Right Radial] Pulse Rate [orthos tatic lying] Pulse Rate [orthos tatic sitting] Pulse Rate [orthos tatic standing] Respiratory Rate Blood Pressure 141/101 H 136/80 Blood Pressure [Ri ght Arm] Blood Pressure [Ri ght Forearm] Blood Pressure [or thostatic lying] Blood Pressure [or thostatic sitting] Blood Pressure [or thostatic standing ] Pulse Oximetry 97 96 96 Oxygen Delivery Me thod 03/31/22 17:45 03/31/22 17:46 03/31/22 18:00 Temperature Pulse Rate 87 55 L 70 Pulse Rate [Pulse Oximeter] Pulse Rate [Right Radial] Pulse Rate [orthos tatic lying] Pulse Rate [orthos tatic sitting] Pulse Rate [orthos tatic standing] Respiratory Rate Blood Pressure 142/115 H Blood Pressure [Ri ght Arm] Blood Pressure [Ri ght Forearm] Blood Pressure [or thostatic lying] Blood Pressure [or thostatic sitting] Blood Pressure [or thostatic standing ] Pulse Oximetry 94 95 97 Oxygen Delivery Me thod 03/31/22 18:02 03/31/22 18:15 03/31/22 18:16 Temperature Pulse Rate 61 60 68 Pulse Rate [Pulse Oximeter] Pulse Rate [Right Radial] Pulse Rate [orthos tatic lying] Pulse Rate [orthos tatic sitting] Pulse Rate [orthos tatic standing] Respiratory Rate Blood Pressure 124/86 116/75 Blood Pressure [Ri ght Arm] Blood Pressure [Ri ght Forearm] Blood Pressure [or thostatic lying] Blood Pressure [or thostatic sitting] Blood Pressure [or thostatic standing ] Pulse Oximetry 95 95 97 Oxygen Delivery Me thod 03/31/22 18:30 03/31/22 18:32 03/31/22 18:45 Temperature Pulse Rate 61 73 72 Pulse Rate [Pulse Oximeter] Pulse Rate [Right Radial] Pulse Rate [orthos tatic lying] Pulse Rate [orthos tatic sitting] Pulse Rate [orthos tatic standing] Respiratory Rate Blood Pressure 116/81 Blood Pressure [Ri ght Arm] Blood Pressure [Ri ght Forearm] Blood Pressure [or thostatic lying] Blood Pressure [or thostatic sitting] Blood Pressure [or thostatic standing ] Pulse Oximetry 94 95 93 Oxygen Delivery Me thod 03/31/22 18:46 03/31/22 19:00 03/31/22 19:02 Temperature Pulse Rate 70 74 65 Pulse Rate [Pulse Oximeter] Pulse Rate [Right Radial] Pulse Rate [orthos tatic lying] Pulse Rate [orthos tatic sitting] Pulse Rate [orthos tatic standing] Respiratory Rate Blood Pressure 121/77 112/75 Blood Pressure [Ri ght Arm] Blood Pressure [Ri ght Forearm] Blood Pressure [or thostatic lying] Blood Pressure [or thostatic sitting] Blood Pressure [or thostatic standing ] Pulse Oximetry 94 96 97 Oxygen Delivery Me thod 03/31/22 19:15 03/31/22 19:16 03/31/22 19:30 Temperature Pulse Rate 54 L 71 97 Pulse Rate [Pulse Oximeter] Pulse Rate [Right Radial] Pulse Rate [orthos tatic lying] Pulse Rate [orthos tatic sitting] Pulse Rate [orthos tatic standing] Respiratory Rate Blood Pressure 127/80 Blood Pressure [Ri ght Arm] Blood Pressure [Ri ght Forearm] Blood Pressure [or thostatic lying] Blood Pressure [or thostatic sitting] Blood Pressure [or thostatic standing ] Pulse Oximetry 91 94 93 Oxygen Delivery Me thod 03/31/22 19:31 03/31/22 19:45 03/31/22 19:46 Temperature Pulse Rate 88 100 101 H Pulse Rate [Pulse Oximeter] Pulse Rate [Right Radial] Pulse Rate [orthos tatic lying] Pulse Rate [orthos tatic sitting] Pulse Rate [orthos tatic standing] Respiratory Rate Blood Pressure 115/97 H 125/111 H Blood Pressure [Ri ght Arm] Blood Pressure [Ri ght Forearm] Blood Pressure [or thostatic lying] Blood Pressure [or thostatic sitting] Blood Pressure [or thostatic standing ] Pulse Oximetry 96 97 96 Oxygen Delivery Me thod 03/31/22 20:00 03/31/22 20:03 03/31/22 21:16 Temperature 98 F Pulse Rate 124 H 85 Pulse Rate [Pulse Oximeter] Pulse Rate [Right Radial] 115 H Pulse Rate [orthos tatic lying] Pulse Rate [orthos tatic sitting] Pulse Rate [orthos tatic standing] Respiratory Rate 18 Blood Pressure 121/86 Blood Pressure [Ri ght Arm] 107/76 Blood Pressure [Ri ght Forearm] Blood Pressure [or thostatic lying] Blood Pressure [or thostatic sitting] Blood Pressure [or thostatic standing ] Pulse Oximetry 95 96 97 Oxygen Delivery Me thod Room Air 03/31/22 20:31 03/31/22 21:16 03/31/22 21:12 Temperature 98 F Pulse Rate 122 H Pulse Rate [Pulse Oximeter] Pulse Rate [Right Radial] 94 Pulse Rate [orthos tatic lying] Pulse Rate [orthos tatic sitting] Pulse Rate [orthos tatic standing] Respiratory Rate 18 Blood Pressure Blood Pressure [Ri ght Arm] 103/86 Blood Pressure [Ri ght Forearm] Blood Pressure [or thostatic lying] Blood Pressure [or thostatic sitting] Blood Pressure [or thostatic standing ] Pulse Oximetry 97 97 Oxygen Delivery Me thod 03/31/22 21:48 03/31/22 22:11 03/31/22 22:25 Temperature Pulse Rate 92 Pulse Rate [Pulse Oximeter] Pulse Rate [Right Radial] 88 Pulse Rate [orthos tatic lying] 95 Pulse Rate [orthos tatic sitting] 115 H Pulse Rate [orthos tatic standing] 135 H Respiratory Rate Blood Pressure Blood Pressure [Ri ght Arm] 110/91 H Blood Pressure [Ri ght Forearm] Blood Pressure [or thostatic lying] 102/80 Blood Pressure [or thostatic sitting] 90/57 L Blood Pressure [or thostatic standing ] 93/68 Pulse Oximetry Oxygen Delivery Me thod 03/31/22 22:26 03/31/22 22:54 03/31/22 23:02 Temperature Pulse Rate Pulse Rate [Pulse Oximeter] Pulse Rate [Right Radial] 112 H 112 H Pulse Rate [orthos tatic lying] Pulse Rate [orthos tatic sitting] Pulse Rate [orthos tatic standing] Respiratory Rate 18 18 Blood Pressure Blood Pressure [Ri ght Arm] 123/66 Blood Pressure [Ri ght Forearm] Blood Pressure [or thostatic lying] Blood Pressure [or thostatic sitting] Blood Pressure [or thostatic standing ] Pulse Oximetry 96 95 Oxygen Delivery Me thod CPAP 04/01/22 03:00 04/01/22 02:00 04/01/22 01:00 Temperature Pulse Rate Pulse Rate [Pulse Oximeter] Pulse Rate [Right Radial] 71 69 77 Pulse Rate [orthos tatic lying] Pulse Rate [orthos tatic sitting] Pulse Rate [orthos tatic standing] Respiratory Rate 18 Blood Pressure Blood Pressure [Ri ght Arm] 101/70 113/73 117/78 Blood Pressure [Ri ght Forearm] Blood Pressure [or thostatic lying] Blood Pressure [or thostatic sitting] Blood Pressure [or thostatic standing ] Pulse Oximetry 92 Oxygen Delivery Me thod CPAP 03/31/22 20:04 03/31/22 22:53 03/31/22 22:54 Temperature Pulse Rate 72 59 L 51 L Pulse Rate [Pulse Oximeter] Pulse Rate [Right Radial] Pulse Rate [orthos tatic lying] Pulse Rate [orthos tatic sitting] Pulse Rate [orthos tatic standing] Respiratory Rate Blood Pressure 123/66 Blood Pressure [Ri ght Arm] Blood Pressure [Ri ght Forearm] Blood Pressure [or thostatic lying] Blood Pressure [or thostatic sitting] Blood Pressure [or thostatic standing ] Pulse Oximetry 95 94 94 Oxygen Delivery Me thod 03/31/22 23:00 03/31/22 23:01 03/31/22 23:15 Temperature Pulse Rate 103 H 69 70 Pulse Rate [Pulse Oximeter] Pulse Rate [Right Radial] Pulse Rate [orthos tatic lying] Pulse Rate [orthos tatic sitting] Pulse Rate [orthos tatic standing] Respiratory Rate Blood Pressure 109/69 Blood Pressure [Ri ght Arm] Blood Pressure [Ri ght Forearm] Blood Pressure [or thostatic lying] Blood Pressure [or thostatic sitting] Blood Pressure [or thostatic standing ] Pulse Oximetry 95 92 95 Oxygen Delivery Me thod 03/31/22 23:30 03/31/22 23:45 04/01/22 00:00 Temperature Pulse Rate 59 L 67 68 Pulse Rate [Pulse Oximeter] Pulse Rate [Right Radial] Pulse Rate [orthos tatic lying] Pulse Rate [orthos tatic sitting] Pulse Rate [orthos tatic standing] Respiratory Rate Blood Pressure Blood Pressure [Ri ght Arm] Blood Pressure [Ri ght Forearm] Blood Pressure [or thostatic lying] Blood Pressure [or thostatic sitting] Blood Pressure [or thostatic standing ] Pulse Oximetry 95 92 93 [facility] Delivery [facility] 04/01/22 00:01 04/01/22 00:15 04/01/22 00:30 Temperature Pulse Rate 63 68 71 Pulse Rate [Pulse Oximeter] Pulse Rate [Right Radial] Pulse Rate [orthos tatic lying] Pulse Rate [orthos tatic sitting] Pulse Rate [orthos tatic standing] Respiratory Rate Blood Pressure 96/63 Blood Pressure [Ri ght Arm] Blood Pressure [Ri ght Forearm] Blood Pressure [or thostatic lying] Blood Pressure [or thostatic sitting] Blood Pressure [or thostatic standing ] Pulse Oximetry 92 94 93 Oxygen Delivery [facility] 04/01/22 00:45 04/01/22 01:01 04/01/22 02:01 Temperature Pulse Rate 73 Pulse Rate [Pulse Oximeter] Pulse Rate [Right Radial] Pulse Rate [orthos tatic lying] Pulse Rate [orthos tatic sitting] Pulse Rate [orthos tatic standing] Respiratory Rate Blood Pressure 117/78 113/73 Blood Pressure [Ri ght Arm] Blood Pressure [Ri ght Forearm] Blood Pressure [or thostatic lying] Blood Pressure [or thostatic sitting] Blood Pressure [or thostatic standing ] Pulse Oximetry 88 Oxygen Delivery [facility] 04/01/22 02:46 04/01/22 03:01 04/01/22 05:41 Temperature Pulse Rate Pulse Rate [Pulse Oximeter] Pulse Rate [Right Radial] Pulse Rate [orthos tatic lying] Pulse Rate [orthos tatic sitting] Pulse Rate [orthos tatic standing] Respiratory Rate Blood Pressure 105/78 101/70 100/81 Blood Pressure [Ri ght Arm] Blood Pressure [Ri ght Forearm] Blood Pressure [or thostatic lying] Blood Pressure [or thostatic sitting] Blood Pressure [or thostatic standing ] Pulse Oximetry Oxygen Delivery Me thod 04/01/22 07:47 04/01/22 07:48 04/01/22 07:53 Temperature 97.6 F Pulse Rate 82 101 H Pulse Rate [Pulse Oximeter] Pulse Rate [Right Radial] Pulse Rate [orthos tatic lying] Pulse Rate [orthos tatic sitting] Pulse Rate [orthos tatic standing] Respiratory Rate 18 Blood Pressure 95/68 Blood Pressure [Ri ght Arm] Blood Pressure [Ri ght Forearm] Blood Pressure [or thostatic lying] Blood Pressure [or thostatic sitting] Blood Pressure [or thostatic standing ] Pulse Oximetry 96 96 Oxygen Delivery Me thod Room Air CPAP 04/01/22 07:15 Temperature Pulse Rate Pulse Rate [Pulse Oximeter] Pulse Rate [Right Radial] Pulse Rate [orthos tatic lying] Pulse Rate [orthos tatic sitting] Pulse Rate [orthos tatic standing] Respiratory Rate 18 Blood Pressure Blood Pressure [Ri ght Arm] Blood Pressure [Ri ght Forearm] Blood Pressure [or thostatic lying] Blood Pressure [or thostatic sitting] Blood Pressure [or thostatic standing ] Pulse Oximetry Oxygen Delivery Me thod Labs Labs: Laboratory Results - last 24 hr 03/31/22 03/31/22 03/31/22 15:10 15:35 17:01 WBC RBC Hgb Hct MCV MCH MCHC Plt Count VBG pH VBG pCO2 VBG pO2 VBG HCO3 Sodium Potassium Chloride Carbon Dioxide BUN Creatinine Estimated Creat Clear Estimated GFR Glucose Hemoglobin A1c Calcium Magnesium 1.8 Troponin I 0.04 NT-Pro-B Natriuret Pep 4970 Urine Color Yellow Urine Appearance Clear Urine pH 5.5 Ur Specific [place] 1.025 Urine Protein Negative Urine Glucose (UA) Negative Urine Ketones Negative Urine Blood Negative Urine Nitrite Negative Urine Bilirubin Negative Urine Urobilinogen 0.2 Ur Leukocyte Esterase Negative Urine RBC 0-2 Urine WBC 0-2 Ur Squamous Epith Cells None Urine Bacteria None SARS-CoV-2 (PCR) Negative SARS-CoV-2 Influenza Type A (PCR) Negative PCR FLU A Influenza Type B (PCR) Negative PCR FLU B RSV (PCR) Negative PCR RSV 03/31/22 04/01/22 04/01/22 17:01 07:00 07:00 WBC 5.17 RBC 4.20 Hgb 12.0 Hct 37.0 MCV 88 MCH 29 MCHC 32 Plt Count 145 VBG pH VBG pCO2 VBG pO2 VBG HCO3 Sodium 135 Potassium 4.0 Chloride 102 Carbon Dioxide 25 BUN 24 Creatinine 1.4 Estimated Creat Clear 26.95 Estimated GFR 38 Glucose 212 H Hemoglobin A1c 8.29 H Calcium 8.6 Magnesium 1.7 Troponin I 0.04 NT-Pro-B Natriuret Pep 2720 Urine Color Urine Appearance Urine pH Ur Specific [place] Urine Protein Urine Glucose (UA) Urine Ketones Urine Blood Urine Nitrite Urine Bilirubin Urine Urobilinogen Ur Leukocyte Esterase Urine RBC Urine WBC Ur Squamous Epith Cells Urine Bacteria SARS-CoV-2 (PCR) Influenza Type A (PCR) Influenza Type B (PCR) RSV (PCR) 04/01/22 07:00 WBC RBC Hgb Hct MCV MCH MCHC Plt Count VBG pH 7.428 VBG pCO2 42 VBG pO2 48.6 H VBG HCO3 28 Sodium Potassium Chloride Carbon Dioxide BUN Creatinine Estimated Creat Clear Estimated GFR Glucose Hemoglobin A1c Calcium Magnesium Troponin I NT-Pro-B Natriuret Pep Urine Color Urine Appearance Urine pH Ur Specific [place] Urine Protein Urine Glucose (UA) Urine Ketones Urine Blood Urine Nitrite Urine Bilirubin Urine Urobilinogen Ur Leukocyte Esterase Urine RBC Urine WBC Ur Squamous Epith Cells Urine Bacteria SARS-CoV-2 (PCR) Influenza Type A (PCR) Influenza Type B (PCR) RSV (PCR)
[2022-04-01] MEDS: ALBUMIN HUMAN 25% 100 ML VIAL IV (10:31)
[2022-04-01] MEDS: POTASSIUM CHLORIDE 10 MEQ CAPSULE ER 20 MEQ PO (11:52)
[2022-04-01] MEDS: MAGNESIUM OXIDE 400 MG TABLET PO ×2 (11:52→21:13)
[2022-04-01] MEDS: FUROSEMIDE 10 MG/ML inj 20 MG IVP ×2 (11:52→17:33)
--- NOTE | 2022-04-01 17:59 | PC.NURSE ---
end of shift. pt has been very pleasant. no pain. pt was A-Flutter this and converted around 1440 to 1st degree HB NSR> BP have been soft. she is not dizzy or lightheaded. PT and OT worked with her. she is up ab [place] with a cane. tele is on. SL in a./c was bad and it was restarted in the left FA. she is eating drinking and voiding. EKG was done after ECHO. BS 235/262/168 she got short and long acting insulin. no o2 Sao2 on RA was 93-96%. she had a large BM. she got IV Lasix 2 times. was here to visit,
[2022-04-01] MEDS: FAMOTIDINE 20 MG TABLET PO (21:13)
[2022-04-02] VITALS (14 sets, daily range): BP systolic 104–118; BP diastolic 54–81; PULSE 50–70; RESP 16–18; TEMP 36.4–36.6; O2SAT 94–97
--- NOTE | 2022-04-02 03:23 | PC.NURSE ---
Pt up IND in room. VS unremarkable. Tele Sinus Arvin to NSR with BBB. Afebrile. Reporting zero pain.
[2022-04-02] MEDS: LEVOTHYROXINE 75 MCG TABLET 150 MCG PO (05:34)
[2022-04-02 07:01] LABS: Hematocrit 34.3 % (33.0-51.0); Hemoglobin* 11.4 gm/dL (12.0-16.0); Red Blood Count 3.95 m/uL (4.00-5.20); White Blood Count* 4.12 K/uL (4.50-11.00)
[2022-04-02 07:02] LABS: Mean Corpuscular HGB Conc 33 gm/dL (32-36); Mean Corpuscular Hemoglobin 29 pg (26-34); Mean Corpuscular Volume 87 fL (80-100); Platelet Count* 122 K/uL (140-440); Slide Review Reflex No
[2022-04-02 07:09] LABS: Chloride* 102 mmol/L (96-114); Potassium* 3.5 mmol/L (3.6-5.1); Sodium* 137 mmol/L (135-149)
[2022-04-02 07:10] LABS: Blood Urea Nitrogen* 24 mg/dL (7-30); Calcium* 8.9 mg/dL (8.4-10.6); Carbon Dioxide* 27 mmol/L (20-32); Creatinine* 1.3 mg/dL (0.5-1.5); Est. Creatinine Clearance* 29.03; Estimated Glomerular Filt Rate 42 ml/min; Glucose* 207 mg/dL (60-115); Magnesium* 1.7 mg/dL (1.5-2.6); NT Pro B Type NatriureticPept* 861 pg/mL
[2022-04-02] MEDS: METOPROLOL SUCCINATE (XL) 25 MG TAB PO (08:17)
[2022-04-02] MEDS: SODIUM CHLORIDE 0.9 % (FLUSH) 10 ML SYRINGE IVF ×4 (08:17→20:26)
[2022-04-02] MEDS: FERROUS SULFATE 325 MG TABLET PO (08:18)
[2022-04-02] MEDS: MAGNESIUM OXIDE 400 MG TABLET PO ×3 (08:18→20:25)
[2022-04-02] MEDS: dilTIAZem 120 MG CAP.ER.24H 240 MG PO (08:18)
[2022-04-02] MEDS: APIXABAN 5 MG TABLET PO ×2 (08:19→20:26)
--- NOTE | 2022-04-02 10:29 | CRLHL7_ITS ---
For Patients: As a result of the Century Cures Act, medical imaging exams and procedure reports are released immediately into your electronic medical record. You may view this report before your referring provider. If you have questions, please contact your health care provider. Indication: Shortness of breath and cough Technique: Chest 1 view Comparison: Chest x-ray 04/01/2022 Findings/Impression: Cardiovascular and mediastinum: Upper normal heart size with aortic tortuosity and atherosclerotic calcification. Lungs and pleural space: No pleural effusion or pneumothorax. No focal consolidation. Mild reticular interstitial prominence in the perihilar regions appear similar. Bones and soft tissues: Status post median sternotomy. Dictated by Tom Mccain MD @ 04/02/2022 12:28:47 PM (Electronically Signed)
[2022-04-02] MEDS: POTASSIUM CHLORIDE 10 MEQ CAPSULE ER 40 MEQ PO (10:39)
[2022-04-02] MEDS: FUROSEMIDE 10 MG/ML inj 40 MG IVP (10:39)
--- NOTE | 2022-04-02 11:46 | P.IMPN_ITS ---
Progress Note: A&P Assessment and plan (1) Diastolic CHF, acute on chronic: Status: Acute (2) Diastolic CHF, chronic: Problem details: last echo 01/03 TAVR 03/05 Current dose Lasix is 20 mg p.o. q.a.m. Status: Acute (3) Atrial flutter with rapid ventricular response: Status: Acute (4) Chronic UTI: Problem details: daily suppressive trimethoprim Status: Acute (5) Coronary artery disease: Problem details: s/p PCI 07/13/2004. VICENTE to Cx last angiogram was unremarkable (approx 2014) Coronary CT angiography 03/05 pre-TAVR, mild CAD Calcific plaques in the mid LAD cause mild stenosis. Status: Acute (6) Status post transcatheter aortic valve replacement: Problem details: 03/01, [facility]. Second lifetime replacement. Status: Acute (7) Obstructive sleep apnea on CPAP: Problem details: severe; followed by [facility] sleep medicine [facility] Status: Acute (8) Gastroesophageal reflux disease: Status: Acute (9) Diabetes mellitus type 2 in obese: Problem details: A1c has typically been around 7. On metformin monotherapy Accu-Cheks plus sliding scale insulin ordered Status: Acute (10) CKD stage 3 due to type 2 diabetes mellitus: Problem details: Baseline is about 1.3-1.4. Status: Acute (11) Morbid obesity with BMI of 40.0-44.9, adult: Status: Acute (12) Primary hypothyroidism: Status: Chronic Plan Plan for 04/02 1. Acute diastolic CHF exacerbation -continue IV lasix -electrolyte replacement -CXR showing pulmonary vascular congestion from 04/01; Vascular and interstitial prominence likely representing congestive heart failure. This is new compared to the prior exam. -Echo: EF 65-70%, severe enlarged RA, severe TR, mild MR, small pericardial effusion, moderately increased right side pulmonary pressure -daily weight -monitor I&O -fluid restriction 2. Aflutter w/RVR,-RVR resolved decreased diltiazem 360 mg to 240 mg (04/01); hold statin dc q6h metoprolol; start metoprolol XL today continue eliquis 3. Type II DM; hold metformin; increase levemir 5->7 units subq qam; continue sliding scale Code-full DVT ppx on eliquis Dispo-likely dc home tomorrow has follow up scheduled [facility] tomorrow Time Spent With Patient Total time spent: 45 Subjective Date Seen: 04/02/22 Interval history: patient not adhering to CHF fluid restriction states SOB has been improving; no SOB at rest, minimal with activity Weight slightly down from yesterday; good urine output Exam Narrative: Exam Narrative: Ge: no acute distress HEENT: NCAT EOMI MMM CV: RRR s1 s2 Lungs: CTAB Ext: 2+ peripheral edema Const: Vital Signs, click to edit/add: Vital Signs - 24 hr 04/01/22 15:00 04/01/22 15:59 04/01/22 15:15 Temperature 97.9 F Pulse Rate 71 69 Respiratory Rate 18 Blood Pressure 103/63 Pulse Oximetry 95 95 Oxygen Delivery Me thod Room Air CPAP 04/01/22 15:15 04/01/22 19:57 04/01/22 19:58 Temperature 97.8 F Pulse Rate 69 Respiratory Rate 18 18 Blood Pressure 98/54 L Pulse Oximetry 96 Oxygen Delivery Me thod Room Air 04/01/22 23:30 04/01/22 23:39 04/01/22 23:40 Temperature 97.8 F Pulse Rate 64 Respiratory Rate 18 18 Blood Pressure 111/60 Pulse Oximetry 96 95 Oxygen Delivery Me thod Room Air 04/02/22 00:03 04/02/22 03:06 04/02/22 07:10 Temperature 97.8 F Pulse Rate 59 L 70 65 Respiratory Rate 16 Blood Pressure 115/81 Pulse Oximetry 95 Oxygen Delivery Me thod Room Air 04/02/22 08:04 04/02/22 07:15 04/02/22 07:15 Temperature 97.6 F Pulse Rate 63 Respiratory Rate 18 18 Blood Pressure 113/61 Pulse Oximetry 94 94 Oxygen Delivery Me thod Room Air 04/02/22 10:46 Temperature 97.8 F Pulse Rate 66 Respiratory Rate 18 Blood Pressure 118/68 Pulse Oximetry 95 Oxygen Delivery Me thod Room Air Labs Labs: Laboratory Results - last 24 hr 04/02/22 04/02/22 06:16 06:16 WBC 4.12 L RBC 3.95 L Hgb 11.4 L Hct 34.3 MCV 87 MCH 29 MCHC 33 Plt Count 122 L Sodium 137 Potassium 3.5 L Chloride 102 Carbon Dioxide 27 BUN 24 Creatinine 1.3 Estimated Creat Clear 29.03 Estimated GFR 42 Glucose 207 H Calcium 8.9 Magnesium 1.7 NT-Pro-B Natriuret Pep 861
[2022-04-02] MEDS: FUROSEMIDE 10 MG/ML inj 20 MG IVP (17:39)
--- NOTE | 2022-04-02 18:40 | PC.NURSE ---
end of shift.? pt is very pleasant.? no pain.? pt tele shows 1st degree HB NSR? BP have been better today. .? she is not dizzy or lightheaded. ? PT and OT worked with her. ? she is up ab kaylyn with a cane. she is eating drinking and voiding. ? BS 218/257/170.? she got short and long acting insulin.?? she got IV Lasix 2 40/20 times.? SL is patent. was here to visit,?
[2022-04-02] MEDS: FAMOTIDINE 20 MG TABLET PO (20:26)
[2022-04-03] MEDS: LEVOTHYROXINE 75 MCG TABLET 150 MCG PO (05:33)
[2022-04-03 05:41] VITALS: BP 123/58; PULSE 55; RESP 18; TEMP 36.6; O2SAT 93
--- NOTE | 2022-04-03 05:43 | PC.NURSE ---
: Pt tele has been sinus selena as low as 50 when sleeping, 55-70 when sitting/resting in bed, pt denies s&s, other vss. Pt given CHF new gift tote bag including scale, education, and tracking. Weight to be obtained this AM, tolerating F.R of 1500cc.
[2022-04-03 06:51] LABS: Hematocrit 34.8 % (33.0-51.0); Hemoglobin* 11.5 gm/dL (12.0-16.0); Mean Corpuscular HGB Conc 33 gm/dL (32-36); Mean Corpuscular Hemoglobin 29 pg (26-34); Mean Corpuscular Volume 88 fL (80-100); Platelet Count* 133 K/uL (140-440); Red Blood Count 3.97 m/uL (4.00-5.20); White Blood Count* 4.12 K/uL (4.50-11.00)
[2022-04-03 07:01] LABS: Slide Review Reflex No
[2022-04-03 07:30] VITALS: BP 118/59; PULSE 53; RESP 16; TEMP 36.5; O2SAT 93
[2022-04-03 07:32] LABS: Chloride* 102 mmol/L (96-114); Potassium* 3.7 mmol/L (3.6-5.1); Sodium* 138 mmol/L (135-149)
[2022-04-03 07:34] LABS: Creatinine* 1.3 mg/dL (0.5-1.5); Est. Creatinine Clearance* 29.03; Estimated Glomerular Filt Rate 42 ml/min
[2022-04-03 07:35] LABS: Blood Urea Nitrogen* 25 mg/dL (7-30); Carbon Dioxide* 28 mmol/L (20-32); Glucose* 190 mg/dL (60-115)
[2022-04-03 07:49] LABS: NT Pro B Type NatriureticPept* 492 pg/mL
[2022-04-03 08:04] VITALS: PULSE 53; RESP 16; O2SAT 93
[2022-04-03] MEDS: dilTIAZem 120 MG CAP.ER.24H 240 MG PO (08:36)
[2022-04-03] MEDS: APIXABAN 5 MG TABLET PO (08:36)
[2022-04-03] MEDS: METOPROLOL SUCCINATE (XL) 25 MG TAB PO (08:36)
[2022-04-03] MEDS: MAGNESIUM OXIDE 400 MG TABLET PO (08:36)
[2022-04-03] MEDS: FERROUS SULFATE 325 MG TABLET PO (08:36)
[2022-04-03] MEDS: SODIUM CHLORIDE 0.9 % (FLUSH) 10 ML SYRINGE IVF (08:39)
[2022-04-03 10:48] VITALS: BP 118/59; PULSE 53; RESP 16; TEMP 36.5
--- NOTE | 2022-04-03 11:41 | PC.NURSE ---
Discharge. ? pt is very pleasant.? no pain.? pt tele shows 1st degree HB NSR.? she is not dizzy or lightheaded. ? PT and OT worked with her. ? she is up ab kaylyn with a cane.? she is eating drinking and voiding. ? BS 219.? she got short and long acting insulin.?? ? SL is patent, it was d/c intact. ? was here to visit,? d/c was done pt took al paperwork and belongings with her. she went over and signed personal belong sheet. she got a w/c ride out.
--- NOTE | 2022-04-03 12:19 | P.DS_ITS ---
DS: Providers Provider Date Seen: 04/03/22 Date of admission: 04/01/22 09:01 Primary care physician: Martinez Sal MD Admitting Clinician: Eve Hale MD Date of Discharge: 04/03/22 DS: Diagnosis Discharge Diagnosis (1) Atrial flutter with rapid ventricular response: Status: Acute Problem details: Patient is had recurrent episodes of atrial flutter and atrial fibrillation following heart valve surgery at [place] 1 month ago. Rate control has been with increasing doses of diltiazem. She had 360 mg of diltiazem on admission here then reduce to 240 mg daily for the last 2 days. In atrial flutter her heart rate continued to be borderline fast. Overnight she converted to sinus rhythm and heart rate has been in the 50s and 60s with adequate blood pressure. She also had metoprolol 25 mg added as needed for rate control. She will be discharged on diltiazem 240 mg daily with metoprolol 25 b.i.d.. She will check her pulse twice a day before taking metoprolol The metoprolol should be held if her heart rate is less than 60. (2) Diabetes mellitus type 2 in obese: Status: Acute Problem details: Hemoglobin A1c this fall was 7. Hemoglobin A1c is 8.3. Blood sugars here have been elevated consistently. She has not been doing blood sugar monitoring at home. At this point I am recommending initiating home blood sugar monitoring and clinic visit next week to address hyperglycemia. (3) CKD stage 3 due to type 2 diabetes mellitus: Status: Acute Problem details: Baseline is about 1.3-1.4. (4) Diastolic CHF, acute on chronic: Status: Acute (5) Morbid obesity with BMI of 40.0-44.9, adult: Status: Acute (6) Mitral valve stenosis, severe: Status: Chronic (7) Tricuspid regurgitation: Status: Acute Problem details: Tricuspid valve is non coaptating. Severe tricuspid regurgitation. (8) Status post transcatheter aortic valve replacement: Status: Acute Problem details: 03/01, [facility]. Second lifetime replacement. DS: Summary Hospital Course Hospital Course: 77-year-old female admitted to the hospital with atrial flutter with rapid ventricular response. She required ongoing adjustments of her diltiazem and the addition of metoprolol to achieve rate control. Once rate control was achieved she converted to sinus sinus rhythm and she has had heart rates in the 50s and 60s. She has tolerated this well. During her hospital stay she was also noted to have elevated blood sugars. Her hemoglobin A1c was 8.3. She is recommended to get outpatient followup for management of this. I have prescribed her a glucometer with supplies to check her blood sugar twice a day pending outpatient followup to address her hyperglycemia She gives good detail history of her significant heart disease, personal history and family history. She reports today that she is feeling fine without unusual dyspnea, chest pain or tachy palpitations. Status at Discharge Functional status at discharge: independent ambulation Overall status at discharge: patient is back to baseline Time Spent with Patient Time attestation: Total time spent providing and/or coordinating discharge services: Total time spent today is 45 minutes in coordination care in the day of discharge Time spent: Greater than 30 minutes Exam Narrative: Exam Narrative: She is alert and appears in no distress. She is oriented to her circumstances. Respirations are clear to auscultation. Cardiovascular: S1, S2, 2/6 systolic ejection murmur. Regular rate and rhythm. Abdomen is soft without tenderness. Extremities with trace edema. Const: Vital Signs, click to edit/add: Vital Signs - 24 hr 04/02/22 15:15 04/02/22 15:15 04/02/22 15:15 Temperature 97.7 F Pulse Rate 60 Respiratory Rate 18 18 Blood Pressure 112/65 Pulse Oximetry 97 97 Oxygen Delivery Me thod Room Air 04/02/22 15:53 04/02/22 20:32 04/02/22 21:12 Temperature 98 F Pulse Rate 58 L 56 L Respiratory Rate 18 Blood Pressure 105/58 L Pulse Oximetry 96 Oxygen Delivery Me thod Room Air 04/02/22 22:33 04/02/22 22:36 04/02/22 22:37 Temperature Pulse Rate 55 L Respiratory Rate 18 Blood Pressure Pulse Oximetry 96 Oxygen Delivery Me thod 04/02/22 22:50 04/03/22 05:41 04/02/22 22:00 Temperature 98 F Pulse Rate 55 L 55 L 50 L Respiratory Rate 16 18 Blood Pressure 104/54 L 123/58 L Pulse Oximetry 95 93 Oxygen Delivery Me thod 04/03/22 08:04 04/03/22 08:04 04/03/22 08:04 Temperature Pulse Rate 53 L Respiratory Rate 16 Blood Pressure Pulse Oximetry 93 Oxygen Delivery Me thod 04/03/22 07:30 04/03/22 10:48 Temperature 97.7 F 97.7 F Pulse Rate 53 L 53 L Respiratory Rate 16 16 Blood Pressure 118/59 L 118/59 L Pulse Oximetry 93 Oxygen Delivery Me thod Room Air Documenting provider has reviewed patient's vital signs: yes DS: Data Data Completed and Pending Labs on day of discharge: Labs from last 24 hours 04/03/22 04/03/22 05:53 05:53 WBC 4.12 L RBC 3.97 L Hgb 11.5 L Hct 34.8 MCV 88 MCH 29 MCHC 33 Plt Count 133 L Sodium 138 Potassium 3.7 Chloride 102 Carbon Dioxide 28 BUN 25 Creatinine 1.3 Estimated Creat Clear 29.03 Estimated GFR 42 Glucose 190 H Calcium 9.0 Magnesium 2.0 NT-Pro-B Natriuret Pep 492 Discharge Plan Discharge Disposition: Home, Self-Care Date of Admission: 04/01/22 09:01 Attending Provider on Discharge: Duong Ortega Primary Care Provider: Martinez Sal Condition: Improved Anticipated Discharge Date/Time: 04/03/22 09:42 Discharge Medications: New magnesium oxide 400 mg (241.3 mg magnesium) Tablet 400 mg PO DAILY Qty: 30 0RF Continued levothyroxine 150 mcg tablet 150 mcg PO DAILY nitroglycerin 0.4 mg tablet, sublingual 0.4 mg sublingual Q5M PRN Label Comments: PLACE ONE TABLET UNDER TONGUE NEEDED FOR CHEST PAIN MAY REPEAT EVERY 5 MINUTES NEEDED metformin 500 mg tablet extended release 24 hr 1,000 mg PO DAILY@18 meclizine [Antivert] 25 mg tablet,chewable 25 mg PO TID PRN cholecalciferol (vitamin D3) 50 mcg (2,000 unit) capsule 50 mcg PO DAILY amoxicillin 500 mg capsule 2,000 mg PO PRN PRN Label Comments: TAKE 4 CAPSULE BY MOUTH 1 HOUR BEFORE DENTAL APPOINTMENT furosemide 20 mg tablet 20 mg PO DAILY famotidine [Ac[employer] (famotidine)] 20 mg tablet 20 mg PO HS ferrous sulfate 325 mg (65 mg iron) tablet 325 mg PO DAILY Eliquis 5 mg tablet 5 mg PO BID Qty: 60 0RF rosuvastatin 10 mg tablet 10 mg PO HS trimethoprim 100 mg tablet 100 mg PO DAILY metoprolol tartrate 25 mg tablet 25 mg PO BID ascorbic acid (vitamin C) [C-500] 500 mg tablet 500 mg PO DAILY diltiazem HCl 240 mg capsule,ext.rel 24h degradable 240 mg PO DAILY Qty: 30 1RF Discharge Orders: Discharge Order (Routine); Ordered 04/03/22 Ordered By: Duong Ortega Patient Education: Aluminum, Magnesium, and Simethicone Antacid (By mouth), Heart Failure (DC), Atrial Flutter (DC), How to Check your Blood Sugar (DC) Additional Instructions: 1. We will increase your diltiazem to 240 mg daily per cardiology from [facility] suggestion. They have also suggested I provide you with a few tablets of metoprolol for breakthrough rapid heart rate. You have been on this medication in the past and also controls heart rate through a different mechanism. The problem with using it is that you can slow your heart rate down too much. Therefore, if your heart rate is 110 or less do not use this medication. If your heart rate is persistently elevated at 110 or more you may take this medication 1 tablet only. 2. Follow-up with [facility] by phone today. 3. See Dr. Sal in the next week for recheck of your diabetes. I have prescribed a glucometer. Check your blood sugar at least twice a day, fasting in the morning and before evening meal or bedtime. You may need additional diabetes medicine. Activity Level: Activity as Tolerated Discharge Diet: Diabetic Follow Up Appointments: Martinez Sal MD [Primary Care Provider] - 04/09/22 1:40 pm Forms: [employer] Info Instructions
== END 2022-04-03 11:15 | disposition home or self-care (01) | DRG 291 ==
LOC: ED 19:47 → MEDSURG 20:46
PROVIDERS: Admitting Provider Family Medicine; Emergency Provider Family Medicine; PCP Family Medicine; Visit Provider Family Medicine
DX: I13.0 Hypertensive heart and chronic kidney disease with heart failure and stage 1 through stage 4 chronic kidney disease, or unspecified chronic kidney disease (principal); I50.33 Acute on chronic diastolic (congestive) heart failure; I48.3 Typical atrial flutter; Z68.41 Body mass index [BMI] 40.0-44.9, adult; I97.190 Other postprocedural cardiac functional disturbances following cardiac surgery; N39.0 Urinary tract infection, site not specified; E66.01 Morbid (severe) obesity due to excess calories; I48.0 Paroxysmal atrial fibrillation; I77.819 Aortic ectasia, unspecified site; E11.65 Type 2 diabetes mellitus with hyperglycemia; E11.22 Type 2 diabetes mellitus with diabetic chronic kidney disease; N18.30 Chronic kidney disease, stage 3 unspecified; I07.1 Rheumatic tricuspid insufficiency; I05.0 Rheumatic mitral stenosis; E78.5 Hyperlipidemia, unspecified; I49.9 Cardiac arrhythmia, unspecified; I25.10 Atherosclerotic heart disease of native coronary artery without angina pectoris; E83.42 Hypomagnesemia; K21.9 Gastro-esophageal reflux disease without esophagitis; G47.33 Obstructive sleep apnea (adult) (pediatric); F51.9 Sleep disorder not due to a substance or known physiological condition, unspecified; D64.9 Anemia, unspecified; E03.9 Hypothyroidism, unspecified; H81.10 Benign paroxysmal vertigo, unspecified ear; R09.89 Other specified symptoms and signs involving the circulatory and respiratory systems; Z79.84 Long term (current) use of oral hypoglycemic drugs; Z79.01 Long term (current) use of anticoagulants; Z96.653 Presence of artificial knee joint, bilateral; Z95.4 Presence of other heart-valve replacement; Z87.898 Personal history of other specified conditions; Z87.891 Personal history of nicotine dependence; Z86.79 Personal history of other diseases of the circulatory system; Z90.49 Acquired absence of other specified parts of digestive tract; Z90.89 Acquired absence of other organs; Z96.641 Presence of right artificial hip joint; Z20.822 Contact with and (suspected) exposure to COVID-19; Z98.890 Other specified postprocedural states
CPT/HCPCS: 36415; 71045; 80048; 80053; 81001; 82803; 82962; 83036; 83735; 83880; 84443; 84484; 85025; 85027; 87502; 87634; 87635; 93005; 93306; 94761; 97116; 97161; 97165; 97535; 99285; 99291; A9270; J1940; J3475; J3490; J7050; J7120; P9047

== ENCOUNTER 2024-01-01 14:06 | Emergency (ER) | payer MEDICARE, SELFPAY ==
[2024-01-01] VITALS (25 sets, daily range): BP systolic 104–140; BP diastolic 62–94; PULSE 79–132; RESP 24; TEMP 36.5; O2SAT 91–96; BMI 39.0
[2024-01-01] MEDS: dilTIAZem 5 MG/ML inj 10 MG IVP (14:48)
[2024-01-01] MEDS: 0.9 % SODIUM CHLORIDE 500 ML 500 ML IV (14:48)
[2024-01-01 14:57] LABS: Basophils Absolute Auto 0.02 K/uL (0.00-0.30); Basophils Percent Auto 0.3 % (0.0-3.0); Hematocrit 42.7 % (33.0-51.0); Hemoglobin* 13.8 gm/dL (12.0-16.0); Immature Granulocytes Pct Auto 1.5 %; Lymphocytes Percent Auto 9.2 % (20-44); Mean Corpuscular HGB Conc 32 gm/dL (32-36); Mean Corpuscular Hemoglobin 29 pg (26-34); Mean Corpuscular Volume 91 fL (80-100); Monocytes Percent Auto 9.4 % (0.0-11.0); Neutrophils Percent Auto 79.6 % (42.0-72.0); Platelet Count* 137 K/uL (140-440); RDW Coefficient of Variation % 13.6 % (11.5-15.5); Red Blood Count 4.69 m/uL (4.00-5.20); White Blood Count* 6.63 K/uL (4.50-11.00)
[2024-01-01 14:59] LABS: Chloride* 103 mmol/L (96-114); Potassium* 4.4 mmol/L (3.6-5.1); Slide Review Reflex No; Sodium* 138 mmol/L (135-149)
--- NOTE | 2024-01-01 14:59 | ED_ITS ---
HPI - General Adult General Date Seen: 01/01/24 Chief complaint: Arrhythmia/Palpitations Stated complaint: afib Time Seen by Provider: 01/01/24 14:19 Source: patient, RN notes reviewed and old records reviewed Mode of arrival: ambulatory Limitations: no limitations History of Present Illness HPI narrative: Patient is an 78 year old woman with a history of TAVR in atrial fibrillation as well as diabetes and coronary artery disease, diastolic congestive heart failure. She presents stating that she feels like she has gone into atrial fibrillation as of this morning. She does have a history of this, she is anticoagulated on Eliquis. She was last seen here a couple of years ago, shortly after having her TAVR. At that time had rate control but was not electrically cardioverted. She says that she has never required electrical cardioversion she has always converted on her own or with an IV medication. Her only symptom is of feeling warm. She denies chest pain, difficulty breathing, lightheadedness, fainting. She does say that her blood sugar was little high this morning and she has been urinating more frequently than usual but she does not have dysuria or urgency. No fevers or other symptoms of illness. She does not smoke, does not drink alcohol and has not had caffeine for 9 years. She is on 360 mg of diltiazem daily at this point, she has 25 mg metoprolol tablets t hat she takes if she goes into atrial fibrillation. She did try 1 of those at home and thought initially it was helping but then her heart rate seemed to go back. Related Data Home Medications ?Medication ?Instructions ?Recorded ?Confirmed amoxicillin 500 mg capsule 2,000 mg PO PRN PRN 12/27/21 08/05/23 cholecalciferol (vitamin D3) 50 50 mcg PO DAILY 12/27/21 08/05/23 mcg (2,000 unit) capsule famotidine 20 mg tablet (Acid 20 mg PO HS 12/27/21 08/05/23 Mail Reader (famotidine)) ferrous sulfate 325 mg (65 mg 325 mg PO DAILY 12/27/21 08/05/23 iron) tablet furosemide 20 mg tablet 20 mg PO DAILY 12/27/21 08/05/23 levothyroxine 150 mcg tablet 150 mcg PO DAILY 12/27/21 08/05/23 meclizine 25 mg chewable tablet 25 mg PO TID PRN 12/27/21 08/05/23 (Antivert) metformin 500 mg tablet,extended 1,000 mg PO DAILY@18 12/27/21 08/05/23 release 24 hr nitroglycerin 0.4 mg sublingual 0.4 mg sublingual Q5M PRN 12/27/21 08/05/23 tablet rosuvastatin 10 mg tablet 10 mg PO HS 03/31/22 08/05/23 trimethoprim 100 mg tablet 100 mg PO DAILY 03/31/22 08/05/23 metoprolol tartrate 25 mg tablet 25 mg PO BID 04/01/22 08/05/23 diltiazem HCl 240 mg 360 mg PO DAILY 08/05/23 08/05/23 capsule,extended release 24 hr, controlled Previous Rx's ?Medication ?Instructions ?Recorded apixaban 5 mg tablet (Eliquis) 5 mg PO BID #60 tabs 12/29/21 magnesium oxide 400 mg (241.3 mg 400 mg PO DAILY #30 tabs 04/03/22 magnesium) tablet Allergies Allergy/AdvReac Type Severity Reaction Status Date / Time atorvastatin Allergy Verified 08/05/23 12:09 cephalexin Allergy Verified 08/05/23 12:09 ciprofloxacin Allergy Swelling Verified 08/05/23 12:09 of Lip/Tongue/Throat clindamycin Allergy Verified 08/05/23 12:09 Fish Containing Products Allergy Verified 08/05/23 12:09 ibuprofen Allergy Verified 08/05/23 12:09 Sulfa (Sulfonamide Allergy Verified 08/05/23 12:09 Antibiotics) sulfamethoxazole Allergy Verified 08/05/23 12:09 [From Bactrim] trimethoprim [From Bactrim] Allergy Verified 08/05/23 12:09 Review of Systems Status of ROS: Reports: 10 or more systems reviewed and unremarkable except as noted in History and below [facility] Medical History Morbid obesity with BMI of 40.0-44.9, adult ?E66.01 - Morbid (severe) obesity due to excess calories (ICD-10) ?Z68.41 - Body mass index [BMI] 40.0-44.9, adult (ICD-10) Chronic UTI ?N39.0 - Urinary tract infection, site not specified (ICD-10) History of atrial fibrillation ?Z86.79 - Personal history of other diseases of the circulatory system (ICD- 10) E-coli UTI ?N39.0 - Urinary tract infection, site not specified (ICD-10) ?B96.20 - Unspecified Escherichia coli [E. coli] as the cause of diseases classified elsewhere (ICD-10) Ascending aorta dilatation ?I77.810 - Thoracic aortic ectasia (ICD-10) Tricuspid regurgitation ?I07.1 - Rheumatic tricuspid insufficiency (ICD-10) Normocytic anemia ?D64.9 - Anemia, unspecified (ICD-10) CONSTANTINE (acute kidney injury) ?N17.9 - Acute kidney failure, unspecified (ICD-10) Bilateral sensorineural hearing loss ?H90.3 - Sensorineural hearing loss, bilateral (ICD-10) Tinnitus of both ears ?H93.13 - Tinnitus, bilateral (ICD-10) Benign paroxysmal positional vertigo ?H81.10 - Benign paroxysmal vertigo, unspecified ear (ICD-10) Diabetes mellitus type 2 in obese ?E11.69 - Type 2 diabetes mellitus with other specified complication (ICD-10) ?E66.9 - Obesity, unspecified (ICD-10) CKD stage 3 due to type 2 diabetes mellitus ?E11.22 - Type 2 diabetes mellitus with diabetic chronic kidney disease (ICD- 10) ?N18.30 - Chronic kidney disease, stage 3 unspecified (ICD-10) Hyperlipidemia associated with type 2 diabetes mellitus ?E11.69 - Type 2 diabetes mellitus with other specified complication (ICD-10) ?E78.5 - Hyperlipidemia, unspecified (ICD-10) Obstructive sleep apnea on CPAP ?G47.33 - Obstructive sleep apnea (adult) (pediatric) (ICD-10) ?Z99.89 - Dependence on other enabling machines and devices (ICD-10) Gastroesophageal reflux disease ?K21.9 - Gastro-esophageal reflux disease without esophagitis (ICD-10) Morbid obesity with BMI of 45.0-49.9, adult ?E66.01 - Morbid (severe) obesity due to excess calories (ICD-10) ?Z68.42 - Body mass index [BMI] 45.0-49.9, adult (ICD-10) Lower extremity edema ?R60.0 - Localized edema (ICD-10) Primary hypothyroidism ?E03.9 - Hypothyroidism, unspecified (ICD-10) Essential hypertension ?I10 - Essential (primary) hypertension (ICD-10) Coronary artery disease ?I25.10 - Atherosclerotic heart disease of [place] coronary artery without angina pectoris (ICD-10) Left atrial enlargement ?I51.7 - Cardiomegaly (ICD-10) Mitral valve sclerosis ?I05.8 - Other rheumatic mitral valve diseases (ICD-10) Mitral valve stenosis, severe ?I05.0 - Rheumatic mitral stenosis (ICD-10) Diastolic CHF, chronic ?I50.32 - Chronic diastolic (congestive) heart failure (ICD-10) Atrial flutter with rapid ventricular response ?I48.92 - Unspecified atrial flutter (ICD-10) Atrial fibrillation with rapid ventricular response ?I48.91 - Unspecified atrial fibrillation (ICD-10) Surgical History Status post transcatheter aortic valve replacement ?Z95.2 - Presence of prosthetic heart valve (ICD-10) Status post right knee replacement ?Z96.651 - Presence of right artificial knee joint (ICD-10) Status post left knee replacement ?Z96.652 - Presence of left artificial knee joint (ICD-10) Status post appendectomy ?Z90.49 - Acquired absence of other specified parts of digestive tract (ICD- 10) Previous section ?Z98.891 - History of uterine scar from previous surgery (ICD-10) History of hysterectomy ?Z90.710 - Acquired absence of both cervix and uterus (ICD-10) Status post cholecystectomy ?Z90.49 - Acquired absence of other specified parts of digestive tract (ICD- 10) History of right hip replacement ?Z96.641 - Presence of right artificial hip joint (ICD-10) H/O aortic valve replacement ?Z95.2 - Presence of prosthetic heart valve (ICD-10) Social History Highest level of school completed/degree received: Bachelor's degree Smoking Status: Former smoker Do you use any of these nicotine containing products: None Second hand tobacco smoke exposure: No How often do you have a drink containing alcohol: 2-4 times a month Alcohol type: beer and wine How many standard drinks containing alcohol do you have on a typical day: 1 or 2 How often do you have six or more drinks on one occasion: Never AUDIT-C Alcohol total score: 2 Non-prescribed substance use: denies use Caffeine: No service: No Exam Narrative: Exam Narrative: Vital signs as noted above. In general, an alert, well-appearing patient. Head: Normocephalic, atraumatic. Eyes: Pupils are equal reactive. Extraocular movements are full. Conjunctivae are normal. ENT: Mucous membranes are moist. Throat is normal. Neck: Supple without lymphadenopathy. Heart: Tachycardic, irregular. Systolic murmur. Lungs: Clear bilaterally. No increased work of breathing, crackles or wheezes. Abdomen: Soft and nontender. No organomegaly. Extremities: Well perfused. No edema. No calf tenderness. Pulses intact. Neurologic: Patient is alert and oriented to person and place. Speech is fluent. Face is symmetric. Moves all extremities equally. Affect: Normal. Skin: Warm and dry. Well perfused. Const: Vital Signs, click to edit/add: Vital Signs - 24 hr 01/01/24 14:13 01/01/24 14:41 01/01/24 14:45 Temperature 97.7 F Pulse Rate 97 132 H Pulse Rate [Pulse Oximeter] 113 H Respiratory Rate 24 Blood Pressure Blood Pressure [Le ft Upper Arm] 114/70 Pulse Oximetry 95 95 93 Oxygen Delivery Me thod Room Air 01/01/24 14:57 01/01/24 15:00 01/01/24 15:02 Temperature Pulse Rate 114 H 106 H 110 H Pulse Rate [Pulse Oximeter] Respiratory Rate Blood Pressure 104/62 116/89 Blood Pressure [Le ft Upper Arm] Pulse Oximetry 94 94 94 Oxygen Delivery Me thod 01/01/24 15:03 01/01/24 15:15 01/01/24 15:30 Temperature Pulse Rate 110 H 121 H 127 H Pulse Rate [Pulse Oximeter] Respiratory Rate Blood Pressure Blood Pressure [Le ft Upper Arm] Pulse Oximetry 94 95 93 Oxygen Delivery Me thod 01/01/24 15:32 01/01/24 15:45 01/01/24 16:00 Temperature Pulse Rate 126 H 127 H 128 H Pulse Rate [Pulse Oximeter] Respiratory Rate Blood Pressure 132/85 Blood Pressure [Le ft Upper Arm] Pulse Oximetry 93 94 93 Oxygen Delivery Me thod 01/01/24 16:02 01/01/24 16:03 01/01/24 16:15 Temperature Pulse Rate 127 H 127 H 110 H Pulse Rate [Pulse Oximeter] Respiratory Rate Blood Pressure 131/94 H Blood Pressure [Le ft Upper Arm] Pulse Oximetry 94 96 96 Oxygen Delivery Mi thod 01/01/24 16:17 01/01/24 16:30 01/01/24 16:33 Temperature Pulse Rate 105 H 79 91 Pulse Rate [Pulse Oximeter] Respiratory Rate Blood Pressure 140/85 H 121/87 Blood Pressure [Le ft Upper Arm] Pulse Oximetry 94 93 95 Oxygen Delivery Mi thod 01/01/24 16:45 01/01/24 16:48 01/01/24 16:49 Temperature Pulse Rate 102 H 103 H 101 H Pulse Rate [Pulse Oximeter] Respiratory Rate Blood Pressure 129/77 Blood Pressure [Le ft Upper Arm] Pulse Oximetry 93 93 94 Oxygen Delivery Mi thod 01/01/24 17:00 01/01/24 17:02 01/01/24 17:03 Temperature Pulse Rate 112 H 105 H 111 H Pulse Rate [Pulse Oximeter] Respiratory Rate Blood Pressure 124/87 Blood Pressure [Le ft Upper Arm] Pulse Oximetry 95 91 96 Oxygen Delivery [facility] 01/01/24 17:15 Temperature Pulse Rate 109 H Pulse Rate [Pulse Oximeter] Respiratory Rate Blood Pressure Blood Pressure [Le ft Upper Arm] Pulse Oximetry 94 Oxygen Delivery [facility] Documenting provider has reviewed patient's vital signs: yes Course Course ED Course: Following initial evaluation, an EKG was done which showed atrial fibrillation, rapid ventricular response of 129 beats per minute. We will place her on a cardiac and pulse oximeter monitoring, place an IV. Point of care troponin was 0.02. Will give 10 mg of diltiazem IV and see how we do with rate control. Certainly can discuss cardioversion as an option if we are not achieving rate control or she would prefer to use electrical cardioversion this time for some reason. She did not have significant response to 10 mg of IV diltiazem, I talked with her about possible cardioversion but she says she really does not want to do that. Her [id number] apparently recently had an ablation which she understands is a different procedure, but it was somewhat complicated and she is just feeling nervous about any kind of heart procedure. Therefore, she I gave her 15 mg of IV diltiazem to see if we would get better control with that. She actually did respond reasonably well that, heart rate was around 90-105. I think it is reasonable to let her go home with this, she understands she is st ill in atrial fibrillation, but she does not want to cardiovert she is feeling better, labs were notable for a troponin of 0.02 at time 0 and time 2 hours. CBC was normal, metabolic panel was normal, magnesium was 1.7. Discussed reasons to return, for example if she were to have trouble with significantly elevated heart rates at home, lightheadedness, fainting, chest pain difficulty breathing etcetera. I did give her 120 mg of oral diltiazem here. She has an appointment with her software licensing analyst in a couple of weeks. She can follow up with them or see Dr. Sal if problems arise in the meantime. Return at any time to the emergency department for worsening. She is comfortable with that plan. Discussed with her that as long she takes her Eliquis reliably every day, she can come back at any time she changes her mind about cardioversion. Vital Signs Vital signs: Initial Vital Signs Temperature 97.7 F 01/01/24 14:13 Temperature Source Temporal Artery Scan 01/01/24 14:13 Pulse Rate 113 H 01/01/24 14:13 Pulse Rhythm Irregular 01/01/24 14:13 Respiratory Rate 24 01/01/24 14:13 Blood Pressure 114/70 01/01/24 14:13 Blood Pressure Mean 84 01/01/24 14:13 Blood Pressure Position Sitting 01/01/24 14:13 Pulse Oximetry 95 01/01/24 14:13 Oxygen Delivery Method Room Air 01/01/24 14:13 Vital Signs Temperature 97.7 F 01/01/24 14:13 Pulse Rate 113 H 01/01/24 14:13 Respiratory Rate 24 01/01/24 14:13 Blood Pressure 114/70 01/01/24 14:13 Pulse Oximetry 95 01/01/24 14:13 Oxygen Delivery Method Room Air 01/01/24 14:13 Temperature 97.7 F 01/01/24 14:13 Pulse Rate 109 H 01/01/24 17:15 Respiratory Rate 24 01/01/24 14:13 Blood Pressure 124/87 01/01/24 17:02 Pulse Oximetry 94 01/01/24 17:15 Oxygen Delivery Method Room Air 01/01/24 14:13 Medications Administered Medications: Discontinued Medications Generic Name Dose Route Start Last Admin Trade Name Jacob PRN Reason Stop Dose Admin Diltiazem HCl 10 mg 01/01/24 14:32 01/01/24 14:48 Diltiazem 5 Mg/Ml Inj IVP 01/01/24 14:33 10 mg ONCE ONE Administration Diltiazem HCl 15 mg 01/01/24 15:58 01/01/24 16:06 Diltiazem 5 Mg/Ml Inj IVP 01/01/24 15:59 15 mg ONCE ONE Administration Diltiazem HCl 120 mg 01/01/24 16:32 01/01/24 16:53 Diltiazem 120 Mg Cap.Er.24h PO 01/01/24 16:33 120 mg ONCE ONE Administration Sodium Chloride 500 mls @ 500 mls/hr 01/01/24 14:32 01/01/24 15:41 0.9 % Sodium Chloride 500 Ml IV 01/01/24 15:31 Infused .Q1H ONE Infusion Medical Decision Making Lab Data Labs: Lab Results 01/01/24 01/01/24 01/01/24 Range/Units 14:26 14:35 15:35 WBC 6.63 (4.50-11.00) K/uL RBC 4.69 (4.00-5.20) m/uL Hgb 13.8 (12.0-16.0) gm/dL Hct 42.7 (33.0-51.0) % MCV 91 (80-100) fL MCH 29 (26-34) pg MCHC 32 (32-36) gm/dL RDW Coeff of [place]el[place] 13.6 (11.5-15.5) % Plt Count 137 L (140-440) K/uL Neut % (Auto) 79.6 H (42.0-72.0) % Lymph % (Auto) 9.2 L (20-44) % [place] % (Auto) 9.4 (0.0-11.0) % Eos % (Auto) 0.0 (0.0-7.0) % Baso % (Auto) 0.3 (0.0-3.0) % Neut # (Auto) 5.30 (1.7-7.0) K/uL Lymph # (Auto) 0.60 L (0.90-2.90) K/uL [place] # (Auto) 0.60 (0.00-0.90) K/UL Eos # (Auto) 0.00 (0.00-0.50) K/uL Baso # (Auto) 0.02 (0.00-0.30) K/uL Abs Immat Gran (auto) 0.10 (0.00-0.30) K/uL Imm/Tot Granulo (auto) 1.5 % Sodium 138 (135-149) mmol/L Potassium 4.4 (3.6-5.1) mmol/L Chloride 103 (96-114) mmol/L Carbon Dioxide 24 (20-32) mmol/L Anion Gap 11 (7-15) mEq/L BUN 27 (7-30) mg/dL Creatinine 1.1 (0.5-1.5) mg/dL Estimated Creat Clear 33.74 Estimated GFR 51 ml/min Glucose 173 H (60-115) mg/dL Calcium 9.8 (8.4-10.6) mg/dL Magnesium 1.7 (1.5-2.6) mg/dL TSH 1.340 (0.270-4.200) uIU/mL POC Troponin I 0.02 (0.01-0.04) ng/ml 01/01/24 Range/Units 16:33 WBC (4.50-11.00) K/uL RBC (4.00-5.20) m/uL Hgb (12.0-16.0) gm/dL Hct (33.0-51.0) % MCV (80-100) fL MCH (26-34) pg MCHC (32-36) gm/dL RDW Coeff of [place] (11.5-15.5) % Plt Count (140-440) K/uL Neut % (Auto) (42.0-72.0) % Lymph % (Auto) (20-44) % [place] % (Auto) (0.0-11.0) % Eos % (Auto) (0.0-7.0) % Baso % (Auto) (0.0-3.0) % Neut # (Auto) (1.7-7.0) K/uL Lymph # (Auto) (0.90-2.90) K/uL [place] # (Auto) (0.00-0.90) K/UL Eos # (Auto) (0.00-0.50) K/uL Baso # (Auto) (0.00-0.30) K/uL Abs Immat Gran (auto) (0.00-0.30) K/uL Imm/Tot Granulo (auto) % Sodium (135-149) mmol/L Potassium (3.6-5.1) mmol/L Chloride (96-114) mmol/L Carbon Dioxide (20-32) mmol/L Anion Gap (7-15) mEq/L BUN (7-30) mg/dL Creatinine (0.5-1.5) mg/dL Estimated Creat Clear Estimated GFR ml/min Glucose (60-115) mg/dL Calcium (8.4-10.6) mg/dL Magnesium (1.5-2.6) mg/dL TSH (0.270-4.200) uIU/mL POC Troponin I 0.02 (0.01-0.04) ng/ml Discharge Plan Discharge Clinical Impression: Atrial fibrillation Patient Disposition: Home, Self-Care Condition: Improved Instructions: A-fib (Atrial Fibrillation) (ED) Additional Instructions: Continue your diltiazem and Eliquis as previously prescribed. If you are having difficulty with fast heart rates, a chest pain, difficulty breathing, lightheadedness or fainting cetera return any time to the ER. Otherwise follow- up with your software licensing analyst as planned in a couple of weeks, or see Dr. Sal if you are having persistent symptoms. Prescriptions: No Action diltiazem HCl 240 mg capsule,ext.rel 24h degradable 360 mg PO DAILY levothyroxine 150 mcg tablet 150 mcg PO DAILY nitroglycerin 0.4 mg tablet, sublingual 0.4 mg sublingual Q5M PRN Patient Comments: PLACE ONE TABLET UNDER TONGUE NEEDED FOR CHEST PAIN MAY REPEAT EVERY 5 MINUTES NEEDED metformin 500 mg tablet extended release 24 hr 1,000 mg PO DAILY@18 meclizine [Antivert] 25 mg tablet,chewable 25 mg PO TID PRN cholecalciferol (vitamin D3) 50 mcg (2,000 unit) capsule 50 mcg PO DAILY amoxicillin 500 mg capsule 2,000 mg PO PRN PRN Patient Comments: TAKE 4 CAPSULE BY MOUTH 1 HOUR BEFORE DENTAL APPOINTMENT furosemide 20 mg tablet 20 mg PO DAILY famotidine [Acid Mail Reader (famotidine)] 20 mg tablet 20 mg PO HS ferrous sulfate 325 mg (65 mg iron) tablet 325 mg PO DAILY Eliquis 5 mg tablet 5 mg PO BID Qty: 60 0RF rosuvastatin 10 mg tablet 10 mg PO HS trimethoprim 100 mg tablet 100 mg PO DAILY metoprolol tartrate 25 mg tablet 25 mg PO BID magnesium oxide 400 mg (241.3 mg magnesium) Tablet 400 mg PO DAILY Qty: 30 0RF Follow Up/Referrals: Martinez Sal MD [Primary Care Provider] - Stand Alone Forms: [facility] Info Instructions
[2024-01-01 15:01] LABS: Creatinine* 1.1 mg/dL (0.5-1.5); Est. Creatinine Clearance* 33.74; Estimated Glomerular Filt Rate 51 ml/min
[2024-01-01 15:02] LABS: Anion Gap 11 mEq/L (7-15); Blood Urea Nitrogen* 27 mg/dL (7-30); Calcium* 9.8 mg/dL (8.4-10.6); Carbon Dioxide* 24 mmol/L (20-32); Glucose* 173 mg/dL (60-115)
[2024-01-01 15:02] LABS: Troponin, Point-of-Care* 0.02 ng/ml (0.01-0.04)
--- OUTSIDE RECORDS SUMMARY | 2024-01-01 15:14 | XMS_ITS | Clinical Summary ---
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 For routine questions regarding patient records, call [phone] during business hours, M-F 8:00 AM - 5:00 PM Central Time. Record requests for emergency care only can be directed to [phone] at any time.[facility] Allergies Active Allergy Reactions Criticality Noted Date Comments Atorvastatin Other (see comments) Low 03/30/2022 Asked to put on as a possible contraindication to another medication Cephalexin Anaphylaxis High 06/03/2005 Ciprofloxacin Other (see comments) Low 08/10/2019 Tightness in throat Clindamycin Anaphylaxis High 10/28/2009 Fish Containing Products Hives (Reselect Reaction) Low 10/12/2003 [place]apia only Ibuprofen Anaphylaxis,Shortn ess of breath (Reselect Reaction) High 08/31/2013 Ok to keep taking ASA since tolerating Sulfa (Sulfonamide Antibiotics) Anaphylaxis,Edema, suggestive of allergic reaction, i.e., lip, tongue, or throat swelling High 03/30/2022 Sulfamethoxazole-Trim ethoprim Anaphylaxis,Other (see comments),Edema, suggestive of allergic reaction, i.e., lip, tongue, or throat swelling High 10/12/2003 GI distress (mild) Medications Medication Sig Dispensed Refills Start Date End Date Status amoxicillin (AMOXIL) 500 mg capsule Take 4 capsules by mouth as needed. Before dental procedure one hour before 11/15/2016 Active cholecalciferol (VITAMIN D3) 2,000 Unit capsule Take 1 capsule by mouth every morning. Supplement 11/15/2016 Active levothyroxine (SYNTHROID, LEVOTHROID) 150 mcg tablet Take 1 tablet by mouth every morning. 11/24/2016 Active meclizine (ANTIVERT) 25 mg tablet Take 1 tablet by mouth 3 (three) times a day as needed. For motion sickness 11/24/2016 Active famotidine (PEPCID) 20 mg tablet Take 2 tablets by mouth at bedtime. 03/24/2017 Active UNABLE TO FIND 2 (two) times a day. Med Name: Avenova (Eye cleaning swabs) Active apixaban (ELIQUIS) 5 mg tablet Take 1 tablet (5 mg total) by mouth 2 (two) times a day. 180 tablet 3 02/07/2022 Active rosuvastatin (CRESTOR) 10 mg tablet Take 10 mg by mouth at bedtime. 01/31/2022 Active metFORMIN XR (GLUCOPHAGE-XR) 500 mg 24 hr tablet Take 2 tablets (1,000 mg total) by mouth 2 (two) times a day with meals. 04/04/2022 Active magnesium oxide (MAG-OX) 400 mg (241.3 mg magnesium) tablet Take 400 mg by mouth 2 (two) times a day before breakfast and dinner. 04/03/2022 Active furosemide (LASIX) 20 mg tablet 20 mg. 12/27/2021 Active Accu-Chek Guide test strips 2 (two) times a day. test blood sugar 04/26/2022 Active Accu-Chek Softclix Lancets lancets CHECK BLOOD SUGAR TWICE DAILY 07/08/2022 Active ketoconazole (NIZORAL) 2 % cream Apply 1 Application topically 2 (two) times a day. Apply to central chest/under breasts . 30 g 6 07/29/2022 Active carboxymethylcell ulose (REFRESH TEARS) 0.5 % ophthalmic solution Administer 1 drop into both eyes as needed for dry eyes. Every other day Active methenamine (HIPREX) 1 gram tablet Take 1 tablet by mouth 2 (two) times a day. 01/21/2023 Active ascorbic acid, vitamin C, (Vitamin C) 1,000 mg tablet Take 1,000 mg by mouth 2 (two) times a day. Active dilTIAZem (DILACOR XR/DILT-XR) 180 mg ER capsule Take 2 capsules (360 mg total) by mouth daily. 180 capsule 3 02/05/2023 Active DME CPAPIndications:A pnea Sleep Obstructive DME Order 1 each 12/22/2023 Active DME CPAPIndications:A pnea Sleep Obstructive DME Order 1 each 03/21/2023 Discontinue d(Reorder) Active Problems Problem Noted Date Diagnosed Date Thrombocytopenia 03/03/2022 Chronic Kidney Disease (CKD) , Stage 3b Glomerular Filtration Rate (GFR) 30 To 44 03/01/2022 Lymphadenopathy Inguinal 02/27/2022 Atrial Fibrillation Paroxysmal 01/31/2022 Stenosis Aortic Valve Acquired 01/29/2022 Overview (01/29/2022): Added automatically from request for surgery [id number] Atrial Fibrillation Unspecified 01/22/2022 Tachycardia Atrial Paroxysmal 01/22/2022 Anticoagulant Therapy 01/21/2022 Prosthesis Aortic Valve 01/21/2022 Dyspnea On Exertion 01/21/2022 Apnea Sleep Obstructive 01/21/2022 Flutter Atrial 01/21/2022 Abnormal Echocardiogram 01/21/2022 Anemia 01/21/2022 Body Mass Index 45.0 To 49.9 Adult 01/21/2022 Overview (01/21/2022): BMI 48 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 01/21/2022 Diabetes Mellitus Type 2 Wit h Diabetic Chronic Kidney Disease 01/21/2022 Ectasia Thoracic Aortic 01/21/2022 Edema Localized 01/21/2022 Failure Renal Acute (Acute Kidney Injury) 2021 Gastroesophageal Reflux Disease NOS 01/21/2022 Urinary Tract Infection Site Not Specified 01/21 Prosthesis Heart Valve 01/21/2022 Regurgitation Tricuspid Rheumatic 01/21/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 10/30/2021 Tinnitus Bilateral 10/30/2021 Acquired Absence Of Both Cervix And Uterus 10/07 Acquired Absence Of Other Sp ecified Parts Of Digestive Tract 10/07/2021 Chronic Kidney Disease (CKD) , Stage 3a Glomerular Filtration Rate (GFR) 45 To 59 07/30/2021 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 07/27/2020 Pain Soft Tissue Hip 07/27/2020 Primary Osteoarthritis Hand Right 01/08/2019 Replacement Aortic Valve Tissue 10/13/2018 Dupuytrens Disease Hand 08/31/2018 Smearing Fecal 07/25/2015 Morbid Obesity 10/12/2014 Overview (09/03/2016): Morbid Obesity Body Mass Index (BMI) >40 Adult Chronic Diastolic (Congestive) Heart Failure 04/2014 Overview (09/03/2016): Congestive Heart Failure (CHF) Diastolic Chronic (HFpEF) Hypertension Essential Primary 10/12/2014 Overview (09/03/2016): Hypertension (HTN) Chronic Atrial Fibrillation Personal History 10/12/2014 Overview (09/03/2016): Atrial Fibrillation Pers Hx Presence Of Xenogenic Heart Valve 09/28/2014 Overview (01/21/2022): Tissue valve Hypothyroidism 09/27/2014 Hypertension Essential Primary 09/27/2014 Vertigo Benign Paroxysmal Positional Right 08/14 Drusen Macular 03/11/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 Olson, Eric J, M.D. Apnea Sleep Obstructive (Primary Dx) 12/07/2023 CPAP Download Remote Patient Monitoring [facility] [address] [place] [address] [facility], ProviderLindsay, Ph.D. 11/06/2023 CPAP Download Remote Patient Monitoring [facility] [address] [place] [address] [facility], ProviderLindsay, Ph.D. 10/28/2023 Clinical Communication Department of Cardiovascular Medicine in [place], [place] [address] [place] [address] Sanitary Napkin Machine TenderRaleigh M.D. Echo Move Up - January 15 10/27/2023 Clinical Communication Department of Cardiovascular Medicine in [place], [place] [address] [place] [address] Sanitary Napkin Machine TenderRaleigh M.D. Pre-visit Testing Orders 10/06/2023 CPAP Download Remote Patient Monitoring [facility] [address] [place] [address] [facility], ProviderLindsay, Ph.D. from Last 3 Months Immunizations Name Administration Dates Next Due Influenza Split 04/28/2012 Influenza TIV (IM) 01/01/2019, 8,12/10/2016,2012,03/24/2010,04/01/2005 Influenza, Quadrivalent, Adj uvanted, Preservative Free 01/31/2022,12/27/2020,01/27/2020 Influenza, Seasonal, Injectable 04/28/2012,04/01 Influenza, Unspecified 01/14/2014 PCV13 07/22/2014 PPSV23 03/24/2010 RZV (SHINGRIX) 08/28/2018,07/31/2018 SARS-COV-2 (COVID-19) - MODERNA(Discontinued) 02/07/2021,07/11/2020,06/13/2020 Td (Adult), adsorbed 07/19/2002,05/14/1990 Tdap 03/12/2023(Deferred: Other - not utd),05/04/2012 influenza trivalent high dos e (HD)(PF) 03/12/2023(Deferred: Other - has not had),02/08/2016,12/29/2014,01/14/2014,1 influenza trivalent vaccine (6 months and older)(PF) 03/24/2010 Family History Medical History Relation Name Comments Rheum arthritis Brother 1 Piotr Anderson (brother) Diagnosed at [facility] 1965 Rheum arthritis Brother 2 Piotr Anderson Continue t o take medication and have surgeries related to RA Coronary artery disease Brother 3 Ivan Mauro Anderson 4 stents Asthma Brother 4 Duong Adnerson Had asthma ss a young child; showed allergied as an adult (edin). Glaucoma Brother 4 Duong Steele Anderson Other cancer Brother 5 Duong Anderson Mouth precance rs were monitored before his from a stroke in 2019 Stroke Brother 5 Duong Anderson Lung cancer Father Cedric Anderson November 1980 - May 1981, diagnosis od stage 4 lung cancer confirmed by [facility] in 1980 Thyroid disease Father Cedric Anderson Breast cancer Mother Heather Anderson Glaucoma Mother Heather Anderson Macular degeneration Mother Heather Anderson Pancreatic cancer Mother Heather Anderson This w as a slow growing cancer diagnosed about 1999; treated symptoms Stroke Mother's Brother 1 duong anderson 2 stroke s; second one fatal Coronary artery disease Mother's Brother 2 Ivan obrien Dementia Mother's Sister Judy Arnold 1969 Breast cancer Paternal Grandmother Minnie Anderson Stroke Paternal Grandmother Minnie Anderson Breast cancer Kidney disease Sister Yoko Ho Neuphri tis, 1950 Other cancer Sister Yoko Ho Multiple myeloma? March,; was treated at [facility] with stem cell transplant Diabetes Son 1 Shashank Mukherjee Type 1 diabetes diagnosed at age 4; from acute miocarditis in 1997 by diabetis Sleep apnea Son 2 Anil Mukherjee Just sta tted using cpap Thyroid disease Son 2 Anil Mukherjee Took radioactine iodine; treated at [facility] 1998 Sleep apnea Son 3 Francisco Javier noland (son) Uses mothguard for sleep apnea Thyroid disease Son 3 Francisco Javier Wisam noland (son) Took radioactive iodine Thyroid disease Son 4 Shashank Mukherjee Had surgery in 1981 at [facility] to remove goiter: diabetes diagnosed after surgery Kidney disease Son 5 Duong Mukherjee Had acute my ocarditis at age 23; had a heart vad for 10 days; hes 48?years old and inngood health Seizures Son 5 Duong Mukherjee [facility] in [facility]- Relation Name Status Comments Brother 1 Piotr Anderson (brother) Brother 2 Piotr Anderson Brother 3 Ivan Anderson Brother 4 Duong Anderson Brother 5 Duong Anderson Father Cedric Anderson Mother Heather Anderson Mother's Brother 1 duong anderson Mother's Brother 2 Ivan Anderson Mother's Sister Judy Arnold Paternal Grandmother Minnie Anderson Sister Yoko Ho Son 1 Shashank Mukherjee Son 2 Anil Mukherjee Son 3 Francisco Javier Mukherjee (son) Son 4 Shashank Mukherjee Son 5 Duong Mukherjee Social History Tobacco Use Types Packs/Day Years Used Date Smoking Tobacco: Former Cigarettes 0.3 20 1 - 05/22/1981 Passive Smoke Exposure: Past Smokeless Tobacco: Never Alcohol Use Standard Drinks/Week Comments Yes 2 (1 standard drink = 0.6 oz pur e alcohol) [facility] Utilities Answer Date Recorded In the past 12 months has e [place], gas, oil, or water [employer] threatened to shut off services in your home? No 12/22/2023 Humiliation, Afraid, Rape, and Kick questionnair e Answer Date Recorded Within the last year, have y ou been afraid of your partner or ex-partner? No 03/19/2022 Within the last year, have y ou been humiliated or emotionally abused in other ways by your partner or ex-partner? No Within the last year, have y ou been kicked, hit, slapped, or otherwise physically hurt by your partner or ex-partner? No 03/19/2022 Within the last year, have y ou been raped or forced to have any kind of sexual activity by your partner or ex-partner? No 03/19/2022 Social Connection and Isolat ion Panel [NHANES] Answer Date Recorded In a typical week, how many times do you talk on the phone with family, friends, or neighbors? Three times a week 03/19/2022 How often do you get togethe r with friends or relatives? Twice a week 03/19/2022 How often do you attend chur ch or hoahaoism services? More than 4 times per year 03/19/2022 Do you belong to any clubs o r organizations such as christianity groups, unions, fraternal or athletic groups, or school groups? Yes 03/19/2022 How often do you attend meet ings of the clubs or organizations you belong to? More than 4 times per year 03/19/2022 Are you , , di vorced, , never , or living with a partner? 03/19/2022 AUDIT-C Answer Date Recorded Q1: How often do you have a drink containing alc ohol? 2-4 times a month 03/19/2022 Q2: How many drinks containi ng alcohol do you have on a typical day when you are drinking? 1 or 2 03/19/2022 Q3: How often do you have si x or more drinks on one occasion? Never 03/19/2022 Overall Financial Resource Strain (CARDIA) Answe r Date Recorded How hard is it for you to pa y for the very basics like food, housing, medical care, and heating? Not hard at all 03/19/2022 PHQ-2 Answer Date Recorded PHQ-2 Score 1 03/01/2022 [facility] - Occupational Stress Questionnaire Answer Date Recorded Do you feel stress - tense, restless, nervous, or anxious, or unable to sleep at night because your mind is troubled all the time - these days? Only a little 03/19/2022 Exercise Vital Sign Answer Date Recorde d On average, how many days pe r week do you engage in moderate to strenuous exercise (like a brisk walk)? 2 days 12/22/2023 On average, how many minutes do you engage in exercise at this level? 20 min 12/22/2023 Hunger Vital Sign Answer Date Recorded Within the past 12 months, y ou worried that your food would run out before you got the money to buy more. Never true 12/22/19 24 Within the past 12 months, t he food you bought just didn't last and you didn't have money to get more. Never true 12/22/2023 PRAPARE - Transportation Answer Date Re corded In the past 12 months, has l ack of transportation kept you from medical appointments or from getting medications? No 12/2023 In the past 12 months, has l ack of transportation kept you from meetings, work, or from getting things needed for daily living? No 12/22/2023 Depression Answer Date Recor ded PHQ-9 Total Score (max 27) 3 03/01 Nutrition Answer Date Recorded On average, how many serving s of fruits and vegetables do you eat per day (serving size is equal to 1 cup or approximately the size of a tennis ball)? 0-2 12/22/2023 Dental Answer Date Recorded Dental: Regular Dentist Yes 01/01/20 21 Employment Answer Date Recorded Employment status Retired 12/22/2023 Housing Stability Answer Date Recorded What is your living situation today? I have a [facility] place to live 12/22/2023 Education Answer Date Recorded What is the highest level of school you have completed or the highest degree you have received? Bachelor's degree (e.g., BA, AB, BS) 10/12/2018 Sex and Gender Information Value Date Recorded Sex Assigned at Female 12/31/2020 10:01 AM CDT Gender Identity Female 12/16/2017 12:50 PM CDT Sexual Orientation Straight 12/16/2017 12 :50 PM CDT Last Filed Vital Signs Vital Sign Reading Time Taken Comments Blood Pressure 117/69 12/22/2023 3:31 PM CDT Pulse 77 12/22/2023 3:31 PM CDT Temperature 36.8 ??C (98.2 ??F) 03/17/2023 1 0:05 AM MAP DRAFTER Respiratory Rate 16 03/17/2023 10:0 5 AM MAP DRAFTER Oxygen Saturation 92% 03/17/2023 10: 05 AM MAP DRAFTER Inhaled Oxygen Concentration - - Weight 99.9 kg (220 lb 2.1 oz) 12/22/19 24 3:31 PM CDT sandals on Height 163.6 cm (5' 4.41) 12/22/2023 3 :31 PM CDT sandals on Body Mass Index 37.31 12/22/2023 3:31 PM CDT Plan of Treatment Upcoming Encounters Date Type Department Care Team (Latest Contact Info) Description 01/14/2024 2:00 PM CDT Clinical Communication Virtual Review in [place], [place] [address] [place] [phone] 01/16/2024 6:40 AM CDT Ancillary Procedure Department of Cardiovascular Medicine in [place], [place] [address] [place] [phone] Chriss Robles Jr., M.D. [address] [place] [phone] 01/16/2024 7:10 AM CDT Appointment Department of Laboratory Medicine and Pathology, [facility], in [place], [place] [address] [place] [address] Chriss Robles Jr., M.D. [address] [place] [phone] 01/16/2024 7:45 AM CDT Appointment Department of Radiology, [facility] in [place], [place] [address] [place] [address] Chriss Robles Jr., M.D. [address] [place] [phone] 01/16/2024 11:00 AM CDT Office Visit Department of Cardiovascular Medicine in [place], [place] [address] [place] [address] Chriss Robles Jr., M.D. [address] [place] [phone] Health Maintenance Due Date Last Done Comments Diabetic Office Visit with F oot Exam 1945 Urine Albumin 1945 Hepatitis B Vaccines (1 of 3 - Risk 3-dose series) 2003 Depression Screening (Annual PHQ-2) 04/14/2023 Fall Risk Screen (Annual) 04/14/2023 Dilated Eye Exam 12/04/2023 12/03/2022, 12/07/2021 COVID-19 Vaccine (2022-2 4 season) 2023 01/31/2022, 07/30/2021, 02/07/2021, Additional history exists Influenza Vaccine (#1) 2024 , 01/31/2022, 12/27/2020, Additional history exists Hemoglobin A1C 03/18/2024 09/17/2023, 11/0 11/2022, 07/18/2022, Additional history exists Creatinine Level (Kidney Fun ction Test) 09/16/2024 09/17/2023, 02/05/2023, 07/18/2022, Additional history exists Potassium Level 09/16/2024 09/17/2023, 01/13, 07/18/2022, Additional history exists Sodium Level 09/16/2024 09/17/2023, 01/13, 07/18/2022, Additional history exists Thyroid Stimulating Hormone (TSH) test for thyroid function 09/16/2024 09/17/2023, 07/18/2022, 01/22/2022, Additional history exists Office Visit for Blood Press ure Check / Re-check 12/21/2024 12/22/2023 DTaP,Tdap,and Td Vaccines (3 - Td or Tdap) 05/14/2033 05/14/2023, 05/04/2012, 07/19/2002, Additional history exists Pneumococcal vaccine (65+ years) Completed 07/23/19 15, 03/24/2010 Zoster Vaccines Completed 08/28/2018, 07/31/2018 Medical Devices Implanted Type Area Development Representative Device Identifier Shelf Expiration Date Model / Serial / Lot Ultra Stent 4.5 X 18 Rx - [place] [id number] Implanted:Qty: 1 on 07/13/2004 Cardiac Stent Guidant Description:Device Manufactu rer - Guidant Deshawn.. Device Status Text - [id number]. Valve Trifecta 23mm Tis - [place] [id number] Implanted:Qty: 1 on 09/19/[address] [employer] Description:Device Manufactu rer - [employer] Body Location - Other. Aortic. Device Status Text - [id number]. Vlv Maco S3 Ultra 23 - [id number] - [id number] Implanted:Qty: 1 on 03/01/2022 at [facility] Cardiac Valve Prosthesis N/A: Heart [employer] 11/06/2024 [id number] / [id number] / Description:AO Trilogy-Screw 6.5x25 - [place] [id number] Implanted:Qty: 1 on 01/11/2014 Hardware e.g. pins/screws/ rods [employer] Description:Device Manufactu rer - Jennifer. Device Status Text - [id number]. Trilogy-Screw 6.5x35 - [place] [id number] Implanted:Qty: 1 on 01/11/2014 Hardware e.g. pins/screws/ rods [employer] Description:Device Manufactu rer - Jennifer. Device Status Text - [id number]. Trilogy-Screw 6.5x30 - [place] [id number] Implanted:Qty: 2 on 01/11/2014 Hardware e.g. pins/screws/ rods [employer] Description:Device Manufactu rer - Jennifer. Device Status Text - [id number]. Clp Hrzn Ti 6 Clp Sm Red - [id number] Implanted:Qty: 1 on 03/17/2023 by Zan Cool M.D. at [facility] Hardware e.g. pins/screws/ rods Right: [employer] [id number] / / Clp Hrzn Ti 6 Clp Md Homar - [id number] Implanted:Qty: 1 on 03/17/2023 by Zan Cool M.D. at [facility] Hardware e.g. pins/screws/ rods Right: [employer] [id number] 08/28/2027 [id number] / / [id number] Clp Hrzn Ti 6 Clp Sm Red - [id number] Implanted:Qty: 1 on 03/17/2023 by Zan Cool M.D. at [facility] Hardware e.g. pins/screws/ rods Right: [employer] [id number] 12/11/2027 [id number] / / [id number] 230 Clp Hrzn Ti 6 Clp Sm Red - [id number] Implanted:Qty: 1 on 03/17/2023 by Zan Cool M.D. at [facility] Hardware e.g. pins/screws/ rods Right: [employer] [id number] 12/11/2027 [id number] / / [id number] 230 Clp Hrzn Ti 6 Clp Md Homar - [id number] Implanted:Qty: 1 on 03/17/2023 by Zan Cool M.D. at [facility] Hardware e.g. pins/screws/ rods Right: [employer] [id number] 08/28/2027 [id number] / / [id number] Zim-Liner Poly Xlpe 0 Deg 36x50 - Augustin [id number] Implanted:Qty: 1 on 01/11/2014 Hip Implant Other/Legacy - See Implant Description [employer] Description:Device Manufactu rer - Jennifer. Body Location - Other. Right. Device Status Text - [id number] [id number]. Zim. Shell Tril W Holes 54 - [place] [id number] Implanted:Qty: 1 on 01/11/2014 Hip Implant Other/Legacy - See Implant Description [employer] Description:Device Manufactu rer - Jennifer. Body Location - Other. Right. Device Status Text - [id number] [id number]. Sinclair-Stem Belle 7 Hi - [place] [id number] Implanted:Qty: 1 on 01/11/2014 Hip Implant Other/Legacy - See Implant Description [employer] Description:Device Manufactu rer - [employer]. Body Location - Other. Right. Device Status Text - [id number] [id number]. J J Articul Damir Head 36 + 1.5 - [place] [id number] Implanted:Qty: 1 on 01/11/2014 Hip Implant Other/Legacy - See Implant Description [employer] Description:Device Manufactu rer - [employer]. Body Location - Other. Right. Device Status Text - [id number] [id number]. J J Tib Non-Por St 71 X 47 - [place] [id number] Implanted:Qty: 1 on 01/27/2001 Knee Implant [employer] Description:Device Manufactu rer - [employer]. Device Status Text - KNEE IMP-3258. J J Sig Fem Lugged Sz 4.0 Rt - [place] [id number] Implanted:Qty: 1 on 01/27/2001 Knee Implant [employer] Description:Device Manufactu rer - [employer]. Device Status Text - KNEE [id number]. J J Patella Rev Round 32m - [place] [id number] Implanted:Qty: 1 on 01/27/2001 Knee Implant [employer] Description:Device Manufactu rer - [employer]. Device Status Text - KNEE IMP-3884. J J Sig Ins Tib Stab #3 10.0m - [place] [id number] Implanted:Qty: 1 on 01/27/2001 Knee Implant [employer] Description:Device Manufactu rer - [employer]. Device Status Text - KNEE IMP-4940. Conversions - Default Historical Implant Device Implanted:11/13 (Quantity not on file) Knee Implant Description:Device Status Te xt - Knee Joint. right knee. Sigma Post Stab.W Lug Fem Sz 4n Lt - Augustin [id number] Implanted:Qty: 1 on 11/21/2016 Knee Implant Other/Legacy - See Implant Description [employer] Description:Device Manufactu rer - [employer]. Body Location - Other. Left. Device Status Text - [id number] [id number]. Depuy-Tib Tray Mod Cement Cocr Sz3 - [place]in [id number] Implanted:Qty: 1 on 11/21/2016 Knee Implant Other/Legacy - See Implant Description [employer] Description:Device Manufactu rer - [employer]. Body Location - Other. Left. Device Status Text - KNEE [id number]. J J Patella Rev Round 32m - [place] [id number] Implanted:Qty: 1 on 11/21/2016 Knee Implant Other/Legacy - See Implant Description [employer] Description:Device Manufactu rer - [employer]. Body Location - Other. Left. Device Status Text - [id number] [id number]. Depuy-Insert Stabilized Sz 3 15mm - [place]in [id number] Implanted:Qty: 1 on 11/21/2016 Knee Implant Other/Legacy - See Implant Description [employer] Description:Device Manufactu rer - [employer]. Body Location - Other. Left. Device Status Text - KNEE [id number]. Depuy-Insert Stabilized Sz 3 15mm - [place] [id number] Implanted:Qty: 1 on 11/21/2016 Knee Implant Other/Legacy - See Implant Description [employer] Description:Device Manufactu rer - [employer]. Body Location - Other. Left. Device Status Text - [id number] [id number]. Cement Bone Large - Augustin [id number] Implanted:Qty: 2 on 01/27/2001 [facility] [place] Darrick Description:Device Manufactu rer - Darrick Deshawn.. Device Status Text - MISCOTHER-2840. Cement Bone Large - Augustin [id number] Implanted:Qty: 2 on 11/21/2016 Misc Other Darrick Description:Device Manufactu rer - Darrick Deshawn.. Device Status Text - MISCOTHER-2840. Procedures Procedure Name Priority Date/Time Associated Diagnosis Comments COMPREHENSIVE METABOLIC PANEL, S/P Routine 02/05/2023 7:54 AM CDT Replacement Aortic Valve Tissue Hypertension Essential Primary Hyperlipidemia 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 (HCC) Coronary Artery Disease Without Angina Pectoris Apnea Sleep Obstructive THYROID FUNCTION CASCADE, S Routine 01/22/2022 9:32 AM CDT HEMOGLOBIN A1C, B Routine 08/13/2013 5:0 5 PM CDT from Last 3 Months or Most Recently Relevant to Health Maintenance Results * (ABNORMAL) Comprehensive Metabolic Panel (02/05/2023 7:54 AM CDT) Potassium, S 4.6 3.6 - 5.2 mmol/L 02/05/2023 9:59 AM CDT DTL Sodium, S 142 135 - 145 mmol/L 02/05/2023 9:59 AM CDT DTL Chloride, S 100 98 - 107 mmol/L 02/05/2023 9:59 AM CDT DTL Bicarbonate, S 27 22 - 29 mmol/L 02/05/2023 9:59 AM CDT DTL Anion Gap 15 7 - 15 02/05/2023 9:59 AM CDT DTL BUN (Blood Urea Nitrogen), S 21 6 - 21 mg/dL 02/05/2023 9:59 AM CDT DTL Creatinine 1.24(H) 0.59 - 1.04 mg/dL 02/05/2023 9:59 AM CDT DTL Estimated GFR (eGFR) 44(L) >=60 mL/min/BS A 02/05/2023 9:59 AM CDT DTL Comment: Estimated GFR calculated using the 2020 CKD_EPI creatinine equation. Calcium, Total, S 9.3 8.8 - 10.2 mg/dL 02/05/2023 9:59 AM CDT DTL Glucose, S 171(H) 70 - 140 mg/dL 02/05/2023 9:59 AM CDT DTL Protein, Total, S 6.4 6.3 - 7.9 g/dL 02/05/2023 9:59 AM CDT DTL Albumin, S 4.2 3.5 - 5.0 g/dL 02/05/2023 9:59 AM CDT DTL Aspartate Aminotransferase (AST), S 39 8 - 43 U/L 02/05/2023 9:59 AM CDT DTL Alkaline Phosphatase, S 159(H) 35 - 104 U/L 02/05/2023 9:59 AM CDT DTL Alanine Aminotransferase (ALT), S 30 7 - 45 U/L 02/05/2023 9:59 AM CDT DTL Bilirubin, Total, S 0.4 0.0 - 1.2 mg/dL 02/05/2023 9:59 AM CDT DTL Blood (Blood, Venous) 02/05/2023 7:54 AM CDT 02/05/2023 8:36 AM CDT Glenna Trevizo APRN.N.P., M.S. LAB BL OOD ADD-ON Performing Organization Address City/[facility]/ZIP Co de Phone Number [facility] [address] [place] [address], [facility] [address] [place] [address] * Thyroid Function [place] (01/22/2022 9:32 AM CDT) TSH, Sensitive 0.6 0.3 - 4.2 mIU/L 01/22/2022 11:27 AM CDT DTL Blood 01/22/2022 9:32 AM CDT 01/22/2022 10:54 AM CDT Glenna Combs APRN.N.P., M.S.N. LAB BLOOD ADD-ON Performing Organization Address City/[facility] Co de Phone Number [facility] [address] [place] [address], [facility] DTL [facility] [address] [place] [address] * (ABNORMAL) Hemoglobin A1c (08/13/2013 5:05 PM CDT) Hemoglobin A1c, B 6.3(H) 4.0 - 6.0 POWERCHART Blood 08/13/2013 5:05 PM CDT Manny Leon APRN C.NPatriciaP., M.S.N. LA B BLOOD ADD-ON POWERCHART from Last 3 Months or Most Recently Relevant to Health Maintenance Advance Directives For more information, please contact: [phone] * Full Code (Latest Code Status on File) Date Activated Date Inactivated Comments 03/17/2023 6:22 AM 03/17/2023 1:45 PM Question Answer Comments Full Code: Not Discussed Due to: Not medically appropriate * Full Code Date Activated Date Inactivated Comments 03/01/2022 1:50 PM 03/03/2022 4:40 PM Question Answer Comments Full Code: Discussed * Full Code Date Activated Date Inactivated Comments 01/22/2022 12:29 AM 01/24/2022 7:18 PM Question Answer Comments Full Code: Discussed Care Teams Tool Room Machinist Relationship Specialty Start Date End Date Elsewhere, Pcp PCP - General Internal Medicine 01/21/22
--- OUTSIDE RECORDS SUMMARY | 2024-01-01 15:15 | XMS_ITS | Referral Summary ---
Author Organization [facility] Address [address] [place] [address] Care Team Providers Care Hand Violin Maker Name Role Phone Elsewhere, Pcp Primary Care Provider Unavailabl e Source Comments Patient records contain information from all sites at [facility]. For routine questions regarding patient records, call [phone] during business hours, M-F 8:00 AM - 5:00 PM Central Time. Record requests for emergency care only can be directed to [phone] at any time.[facility] Encounters Date Type Department Care Team Description 12/25/2023 3:00 PM CDT Office Visit Department of Dermatology in [place], [place] [address] [place] [phone] Max Garrett M.D., M.B.A. 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 Olson, Eric J, M.D. Apnea Sleep Obstructive (Primary Dx) 12/07/2023 CPAP Download Remote Patient Monitoring [facility] [address] [place] [address] [facility] Hospital[facility] M.B., Ph.D. 11/06/2023 CPAP Download Remote Patient Monitoring [facility] [address] [place] [address] [facility], Lindsay Trent, Ph.D. 10/28/2023 Clinical Communication Department of Cardiovascular Medicine in [place], [place] [address] [place] [address] Hardware InstallerRaleigh M.D. Echo Move Up - January 15 10/27/2023 Clinical Communication Department of Cardiovascular Medicine in [place], [place] [address] [place] [address] Hardware InstallerRaleigh M.D. Pre-visit Testing Orders 10/06/2023 CPAP Download Remote Patient Monitoring [facility] [address] [place] [address] [facility], ProviderLindsay, Ph.D. 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 Hyperlipidemia 07/23/2004 Immunizations Name Administration Dates Next Due Influenza [...] trivalent vaccine (6 months and older)(PF) 03/24/2010 Social History Tobacco Use Types Packs/Day Years Used Date Smoking Tobacco: Former Cigarettes 0.3 20 1 - 05/22/1981 Passive Smoke Exposure: Past Smokeless Tobacco: Never Alcohol Use Standard Drinks/Week Comments Yes 2 (1 standard drink = 0.6 oz pur e alcohol) [facility] Utilities Answer Date Recorded In the past 12 months has e [employer], gas, oil, or water company threatened to shut off services in your [...] week 03/19/2022 How often do you attend memorial healthcare or restorationism services? More than 4 times per year 03/19/2022 Do you belong to any clubs o r organizations such as buddhism groups, unions, fraternal or athletic groups, or [...] PHQ-2 Score 1 03/01/2022 [facility] - Occupational Stress Questionnaire Answer Date Recorded [...] living situation today? I have a [facility] place to live 12/22/2023 Education Answer Date [...] ??C (98.2 ??F) 03/17/2023 1 0:05 AM BOOSTER PUMP OPERATOR Respiratory Rate 16 03/17/2023 10:0 5 AM BOOSTER PUMP OPERATOR Oxygen Saturation 92% 03/17/2023 10: 05 AM BOOSTER PUMP OPERATOR Inhaled Oxygen Concentration - - Weight 99.9 kg (220 lb 2.1 oz) 12/22/19 24 3:31 PM CDT sandals on Height 163.6 cm (5' 4.41) 12/22/2023 3 :31 PM CDT sandals on Body Mass Index 37.31 12/22/2023 3:31 PM CDT Plan of Treatment Upcoming Encounters Date Type Department Care Team (Latest Contact Info) Description 01/14/2024 2:00 PM CDT Clinical Communication Virtual Review in [place], [place] [address] [place] [address] 01/16/2024 6:40 AM CDT Ancillary Procedure Department of Cardiovascular Medicine in [place], [place] [address] [place] [phone] Chriss Robles Jr., M.D. [address] [place] [phone] 01/16/2024 7:10 AM CDT Appointment Department of Laboratory Medicine and Pathology, [facility], in [place], [place] [address] [place] [phone] Chriss Robles Jr., M.D. [address] [place] [phone] 01/16/2024 7:45 AM CDT Appointment Department of Radiology, [facility], in [place], [place] [address] [place] [address] Chriss Robles Jr., M.D. [address] [place] [address] 01/16/2024 11:00 AM CDT Office Visit Department of Cardiovascular Medicine in [place], [place] [address] [place] [address] Chriss Robles Jr., M.D. [address] [place] [phone] Medical Devices Implanted Type Area Sawing And Assembly Supervisor Device Identifier Shelf Expiration Date Model / Serial / Lot Ultra Stent 4.5 X 18 Rx - Augustin [id number] Implanted:Qty: 1 on 07/13/2004 Cardiac Stent Guidant Description:Device Manufactu rer - [employer]Tec Deshawn.. Device Status Text - CARDIAC-81036. Valve Trifecta 23mm Tis - Augustin [id number] Implanted:Qty: 1 on 09/19/[address] Cardiac [address] Aorta [employer]) Description:Device Manufactu rer - [employer] Body Location - Other. Aortic. Device Status Text - CARDVALVE-239811. Vlv Maco S3 Ultra 23 - [id number] - [id number] Implanted:Qty: 1 on 03/01/2022 at [facility] Cardiac Valve Prosthesis N/A: Heart [employer] 11/06/2024 [id number] / [id number] / Description:AO Trilogy-Screw 6.5x25 - Augustin [id number] Implanted:Qty: 1 on 01/11/2014 Hardware e.g. pins/screws/ rods [employer] Description:Device Manufactu rer - Jennifer. Device Status Text - HARDWARE-25932. Trilogy-Screw 6.5x35 - Augustin [id number] Implanted:Qty: 1 on 01/11/2014 Hardware e.g. pins/screws/ rods [employer] Description:Device Manufactu rer - Jennifer. Device Status Text - HARDWARE-98939. Trilogy-Screw 6.5x30 - Augustin [id number] Implanted:Qty: 2 on 01/11/2014 Hardware e.g. pins/screws/ rods [employer] Description:Device Manufactu rer - Jennifer. Device Status Text - HARDWARE-11785. Clp Hrzn Ti 6 Clp Sm Red - [id number] Implanted:Qty: 1 on 03/17/2023 by Zan Cool M.D. at [facility] Hardware e.g. pins/screws/ rods Right: [employer] [id number] / / Clp Hrzn Ti 6 Clp Md Homar - [id number] Implanted:Qty: 1 on 03/17/2023 by Zan Cool M.D. at [facility] Hardware e.g. pins/screws/ rods Right: [employer] [id number] 08/28/2027 [id number] / / [id number] Clp Hrzn Ti 6 Clp Sm Red - [id number] Implanted:Qty: 1 on 03/17/2023 by Zan Cool M.D. at [facility] Hardware e.g. pins/screws/ rods Right: [employer] [id number] 12/11/2027 [id number] / / [id number] 230 Clp Hrzn Ti 6 Clp Sm Red - [id number] Implanted:Qty: 1 on 03/17/2023 by Zan Cool M.D. at [facility] Hardware e.g. pins/screws/ rods Right: [employer] [id number] 12/11/2027 [id number] / / [id number] 230 Clp Hrzn Ti 6 Clp Md Homar - [id number] Implanted:Qty: 1 on 03/17/2023 by Zan Cool M.D. at [facility] Hardware e.g. pins/screws/ rods Right: [employer] [id number] 08/28/2027 [id number] / / [id number] Zim-Liner Poly Xlpe 0 Deg 36x50 - Augustin [id number] Implanted:Qty: 1 on 01/11/2014 Hip Implant Other/Legacy - See Implant Description [employer] Description:Device Manufactu rer - Jennifer. Body Location - Other. Right. Device Status Text - HIP [id number]. Zim. Shell Tril W Holes 54 - Augustin [id number] Implanted:Qty: 1 on 01/11/2014 Hip Implant Other/Legacy - See Implant Description [employer] Description:Device Manufactu rer - Jennifer. Body Location - Other. Right. Device Status Text - HIP IMP-153634. Gage-Stem Belle 7 Hi - Augustin [id number] Implanted:Qty: 1 on 01/11/2014 Hip Implant Other/Legacy - See Implant Description [employer] Description:Device Manufactu rer - [employer]. Body Location - Other. Right. Device Status Text - HIP IMP-121518. J J Articul Damir Head 36 + 1.5 - Augustin [id number] Implanted:Qty: 1 on 01/11/2014 Hip Implant Other/Legacy - See Implant Description [employer] Description:Device Manufactu rer - [employer]. Body Location - Other. Right. Device Status Text - HIP IMP-195167. J J Tib Non-Por St 71 X 47 - Augustin [id number] Implanted:Qty: 1 on 01/27/2001 Knee Implant [employer] Description:Device Manufactu rer - [employer]. Device Status Text - KNEE IMP-3258. J J Sig Fem Lugged Sz 4.0 Rt - Augustin [id number] Implanted:Qty: 1 on 01/27/2001 Knee Implant [employer] Description:Device Manufactu rer - [employer]. Device Status Text - KNEE IMP-16079. J J Patella Rev Round 32m - [...] Lug Fem Sz 4n Lt - Augustin [id number] Implanted:Qty: 1 on 11/21/2016 Knee Implant Other/Legacy - See Implant Description [employer] Description:Device Manufactu rer - [employer]. Body Location - Other. Left. Device Status Text - KNEE [id number]. Depuy-Tib Tray Mod Cement Cocr Sz3 - Augustin [id number] Implanted:Qty: 1 on 11/21/2016 Knee Implant Other/Legacy - See Implant Description [employer] Description:Device Manufactu rer - [employer]. Body Location - Other. Left. Device Status Text - KNEE [id number]. J J Patella Rev Round 32m - Augustin [id number] Implanted:Qty: 1 on 11/21/2016 Knee Implant Other/Legacy - See Implant Description [employer] Description:Device Manufactu rer - [employer]. Body Location - Other. Left. Device Status Text - KNEE [id number]. Depuy-Insert Stabilized Sz 3 15mm - Augustin [id number] Implanted:Qty: 1 on 11/21/2016 Knee Implant Other/Legacy - See Implant Description [employer] Description:Device Manufactu rer - [employer]. Body Location - Other. Left. Device Status Text - KNEE [id number]. Depuy-Insert Stabilized Sz 3 15mm - Augustin [id number] Implanted:Qty: 1 on 11/21/2016 Knee Implant Other/Legacy - See Implant Description [employer] Description:Device Manufactu rer - [employer]. Body Location - Other. Left. Device Status Text - KNEE [id number]. Cement Bone Large - Augustin [id number] Implanted:Qty: 2 on 01/27/2001 Misc Other Pony Description:Device Manufactu rer - Darrick Deshawn.. Device Status Text - MISCOTHER-2840. Cement Bone Large - Augustin [id number] Implanted:Qty: 2 on 11/21/2016 Misc Other Darrick Description:Device Manufactu rer - P[employer] Deshawn.. Device Status Text - MISCOTHER-2840. Procedures [...] CDT 02/05/2023 8:36 AM CDT Glenna Trevizo APRN.N.Lisa., M.S. [place] [address] * Thyroid Function [place] (01/22/2022 9:32 AM CDT) TSH, Sensitive 0.6 0.3 - 4.2 mIU/L 01/22/2022 11:27 AM CDT DTL Blood 01/22/2022 9:32 AM CDT 01/22/2022 10:54 AM CDT Samir Combs APRNN.P., M.S.N. [place] [address] * (ABNORMAL) Hemoglobin A1c (08/13/2013 5:05 PM CDT) Hemoglobin A1c, B 6.3(H) 4.0 - 6.0 POWERCHART Blood 08/13/2013 5:05 PM CDT Manny Leon APRN, C.N.P., M.S.N. MAHSA Carl BLOOD ADD-ON POWERCHART from Last 3 Months or Most Recently Relevant to Health Maintenance Advance Directives For more information, please contact: [phone] * Full Code (Latest Code Status on [...] Answer Comments Full Code: Discussed Care Teams Hand Violin Maker Relationship Specialty Start Date End Date Elsewhere, Pcp PCP - General Internal Medicine 01/21/22
--- OUTSIDE RECORDS SUMMARY | 2024-01-01 15:15 | XMS_ITS ---
Author Organization [facility] Address [address] [place] [address] Care Team Providers Care Fashion Intern Name Role Phone Unavailable Unavailable Unavailable Surgery Details Not on file Complications Check Surgery Details section. Procedure Estimated Blood Loss Check Surgery Details section. Procedure Findings Check Surgery Details section. Procedure Specimens Taken Check Surgery Details section.
--- OUTSIDE RECORDS SUMMARY | 2024-01-01 15:15 | XMS_ITS | Encounter Summary ---
Author Organization [facility] Address [address] [place] [address] Care Team Providers Care Park Guard Name Role Phone Elsewhere, Pcp Primary Care Provider Unavailabl e Reason for Visit * Reason Onset Date Comments Echo Move Up - January 15 10/28/2023 Encounter Details Date Type Department Care Team (Latest Contact Info) Description 10/28/2023 Clinical Communication Department of Cardiovascular Medicine in [place], [place] [address] [place] [address] Mill WorkRaleigh M.D. Echo Move Up - January 15 Social History Tobacco Use Types Packs/Day Years Used Date Smoking Tobacco: Former Cigarettes 0.3 20 1 - 05/22/1981 Passive Smoke Exposure: Past Smokeless Tobacco: Never Alcohol Use Standard Drinks/Week Comments Yes 2 (1 standard drink = 0.6 oz pur e alcohol) Humiliation, Afraid, Rape, and Kick questionnair e [...] 03/19/2022 How often do you attend chur or congregational services? More than 4 times per year 03/19/2022 Do you belong to any clubs o r organizations such as anglican groups, unions, fraternal or athletic groups, or [...] Answer Date Recorded PHQ-2 Score 1 03/01/2022 [facility] - Occupational Stress Questionnaire Answer Date [...] to strenuous exercise (like a brisk walk)? 1 day 03/19/2022 On average, how many minutes do you engage in exercise at this level? 40 min 03/19/2022 Hunger Vital Sign Answer Date Recorded Within the past 12 months, y ou worried that your food would run out before you got the money to buy more. Never true 03/19/20 22 Within the past 12 months, t he food you bought just didn't last and you didn't have money to get more. Never true 03/19/2022 PRAPARE - Transportation Answer Date Re corded In the past 12 months, has l ack of transportation kept you from medical appointments or from getting medications? No 09/2021 In the past 12 months, has l ack of transportation kept you from meetings, work, or from getting things needed for daily living? No 03/19/2022 Housing Stability Vital Sign Answer Raj e Recorded In the last 12 months, was t here a time when you were not able to pay the mortgage or rent on time? No 03/19/2022 In the last 12 months, how many places have you lived? 2 03/19/2022 In the last 12 months, was t here a time when you did not have a steady place to sleep or slept in a penitentiary (including now)? No 03/19/2022 Depression Answer Date Recor ded PHQ-9 Total Score (max 27) 3 03/01 Nutrition Answer Date Recorded Nutrition: EVOO Fat Source Yes 03/19 On average, how many serving s of fruits and vegetables do you eat per day (serving size is equal to 1 cup or approximately the size of a tennis ball)? 4-5 03/19/2022 Dental Answer Date Recorded Dental: Regular Dentist Yes 01/01/20 21 Employment Answer Date Recorded Employment status Retired 03/19/2022 Education Answer Date Recorded What is the highest level of school you have completed or the highest degree you have received? Bachelor's degree (e.g., BA, AB, BS) 10/12/2018 Sex and Gender Information Value Date Recorded Sex Assigned at Female 12/31/2020 10:01 AM CDT Gender Identity Female 12/16/2017 12:50 PM CDT Sexual Orientation Straight 12/16/2017 12 :50 PM CDT documented as of this encounter Plan of Treatment Upcoming Encounters Date Type Department Care Team (Latest Contact Info) Description 01/14/2024 2:00 PM CDT Clinical Communication Virtual Review in [place], [place] [address] [place] [address] 01/16/2024 6:40 AM CDT Ancillary Procedure Department of Cardiovascular Medicine in [place], [place] [address] [place] [address] Chriss Robles Jr., M.D. [address] [place] [phone] 01/16/2024 7:10 AM CDT Appointment Department of Laboratory Medicine and Pathology, [facility] in [place], [place] [address] [place] [address] Chriss Robles Jr., M.D. [address] [place] [phone] 01/16/2024 7:45 AM CDT Appointment Department of Radiology, [facility] in [place], [place] [address] [place] [address] Chriss Robles Jr., M.D. [address] [place] [phone] 01/16/2024 11:00 AM CDT Office Visit Department of Cardiovascular Medicine in [place], [place] [address] [place] [address] Chriss Robles Jr., M.D. 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
--- OUTSIDE RECORDS SUMMARY | 2024-01-01 15:15 | XMS_ITS | Encounter Summary ---
Author Organization [facility] Address [address] [place] [phone] Care Team Providers Care Internal Consultant Name Role Phone Elsewhere, Pcp Primary Care Provider Unavailabl e Encounter Details Date Type Department Care Team (Late st Contact Info) Description 04/02/2005 Historical Ophthalmology RST OPH Ambrocio Blancas O.D. [address] [place] [phone] Social History Tobacco Use Types Packs/Day Years Used Date Smoking Tobacco: Never Assessed Sex and Gender Information Value Date Recorded Sex Assigned at Female 12/31/2020 10:01 AM CDT Gender Identity Female 12/16/2017 12:50 PM CDT Sexual Orientation Straight 12/16/2017 12 :50 PM CDT documented as of this encounter Progress Notes * Ambrocio Blancas O.D. - 04/02/2005 12:00 AM CST Eye General HISTORY OF PRESENT ILLNESS Patient was seen at [facility] on 03/23/05 for early hordeolum of the right eye that she treated with hot packs and amoxicillin for five days. At first, things seemed to have gotten better and over this past weekend (3 days ago) it seemed like both eyes were starting to bother her. She feels soreness on both upper lids which is how her troubles began a couple of weeks ago and resulted in her visit to the emergency room. She is using hot packs on both eyes 3-4 times daily. She did use some [id number] drops for styes last week, but no longer. She was also putting Vaseline onthe eyes but was told to discontinue by her primary doctor. Intermittent blurred vision. Denies any diplopia. IMPRESSION / REPORT / PLAN #1 Right upper lid hordeolum, resolving Continue with warm compresses; discussed maintenance lid hygiene #2 Refractive error (hyperopic astigmatism, presbyopia). Plan: spectacle prescription (Refraction 1) given. DIAGNOSIS #1 Right upper lid hordeolum, resolving #2 Refractive error (hyperopic astigmatism, presbyopia). CDM Reports - [facility] Id: [id number] Status: Fnl documented in this encounter Plan of Treatment Upcoming Encounters Date Type Department Care Team (Latest Contact Info) Description 01/14/2024 2:00 PM CDT Clinical Communication Virtual Review in [address] [phone] 01/16/2024 6:40 AM CDT Ancillary Procedure Department of Cardiovascular Medicine in [address] [phone] Chriss Robles Jr., M.D. [address] [place] [phone] 01/16/2024 7:10 AM CDT Appointment Department of Laboratory Medicine and Pathology, [address] [phone] Chriss Robles Jr., M.D. [address] [place] [phone] 01/16/2024 7:45 AM CDT Appointment Department of Radiology, [facility] in [address] [address] Crhiss Robles Jr., M.D. [address] [place] [phone] 01/16/2024 11:00 AM CDT Office Visit Department of Cardiovascular Medicine in [place], [place] [address] [place] [address] Chriss Robles Jr., M.D. 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
--- OUTSIDE RECORDS SUMMARY | 2024-01-01 15:15 | XMS_ITS | Encounter Summary ---
Author Organization [facility] Address [address] [place] [address] Care Team Providers Care Integrity Analyst Name Role Phone Elsewhere, Pcp Primary Care Provider Unavailabl e Encounter Details Date Type Department Care Team (Late st Contact Info) Description 06/03/2005 Historical Ophthalmology RST OPH Kya Mason M.D., Ph.D. Social History Tobacco Use Types Packs/Day Years Used Date Smoking Tobacco: Never Assessed Sex and Gender Information Value Date Recorded Sex Assigned at Female 12/31/2020 10:01 AM CDT Gender Identity Female 12/16/2017 12:50 PM CDT Sexual Orientation Straight 12/16/2017 12 :50 PM CDT documented as of this encounter Progress Notes * Kya Mason M.D., Ph.D. - 06/03/2005 12:00 AM CST Eye General CHIEF COMPLAINT follow up right eye HISTORY OF PRESENT ILLNESS Patient states that the redness has lessoned. Continues to have a lot of tearing. Had constant tearing which has improved this afternoon. 05/31 the right eye was very red and sore so she used a salt water compress. Presently the right eye has a tight feeling. No diplopia. No blurry vision. IMPRESSION / REPORT / PLAN #1 contact dermatitis #2 meibomian gland dysfunction, both eyes I will refer her to dermatology at this time as at this point, this seems like a contact dermatitis. She will continue warms soaks for eyelid hygeine without the use of any lotions or soaps around theeyes return prn discussed with Dr. Oliver DIAGNOSIS #1 contact dermatitis #2 meibomian gland dysfunction, both eyes CDM Reports - EYEGEN Id: [id number] Status: Fnl documented in this encounter Plan of Treatment Upcoming Encounters Date Type Department Care Team (Latest Contact Info) Description 01/14/2024 2:00 PM CDT Clinical Communication Virtual Review in [address] [phone] 01/16/2024 6:40 AM CDT Ancillary Procedure Department of Cardiovascular Medicine in [address] [address] Chriss Robles Jr., M.D. [address] [place] [phone] 01/16/2024 7:10 AM CDT Appointment Department of Laboratory Medicine and Pathology, [facility] in [address] [address] Chriss Robles Jr., M.D. [address] [place] [phone] 01/16/2024 7:45 AM CDT Appointment Department of Radiology, [facility] in [address] [address] Chriss Robles Jr., M.D. [address] [place] [phone] 01/16/2024 11:00 AM CDT Office Visit Department of Cardiovascular Medicine in [address] [phone] Chriss Robles Jr., M.D. [address] [place] [phone] documented as of this encounter Visit Diagnoses Not on filedocumented in this encounter Additional Health Concerns Infection Onset Date Last Indicated Resolved Time COVID19 Pending 02/29/2020 02/29/2020 02/29/2020 7 :08 PM CLERICAL SUPPORT documented as of this encounter Care Teams Integrity Analyst Relationship Specialty Start Date End Date Elsewhere, Pcp PCP - General Internal Medicine 01/21/22 documented as of this encounter
--- OUTSIDE RECORDS SUMMARY | 2024-01-01 15:15 | XMS_ITS | Encounter Summary ---
Author Organization [facility] Address [address] [place] [address] Care Team Providers Care Crisis Clinician Name Role Phone Elsewhere, Pcp Primary Care Provider Unavailabl e Reason for Referral * Outpatient (Routine) - Authorized Specialty Diagnoses / Procedures Referred By Rica bullock Referred To Contact Diagnoses Regurgitation Mitral Prosthesis Aortic Valve Procedures ECG 12 Lead Chriss Robles Jr., M.D. [address] [place] [address] [facility] Referral ID Status Reason Start Date Expiration Date V isits Requested Visits Authorized [id number] Authorized 10/27/2023 10/26/2024 1 1 * Cardiovascular-Diagnostic (Routine) - Authorized Specialty Diagnoses / Procedures Referred By Rica bullock Referred To Contact Diagnoses Regurgitation Mitral Prosthesis Aortic Valve Procedures Echo Transthoracic (TTE) - Complex Valvular Heart Disease Chriss Robles Jr., M.D. [address] [place] [address] [facility] Referral ID Status Reason Start Date Expiration Date V isits Requested Visits Authorized [id number] Authorized 10/27/2023 10/26/2024 1 1 * Outpatient (Routine) - Authorized Specialty Diagnoses / Procedures Referred By Rica t Referred To Contact Diagnoses Regurgitation Mitral Prosthesis Aortic Valve Procedures DX Chest AP or PA and Lateral 2 Views Chriss Robles Jr., M.D. [address] [place] [address] [facility] Referral ID Status Reason Start Date Expiration Date V isits Requested Visits Authorized [id number] Authorized 10/27/2023 10/26/2024 1 1 Reason for Visit * Reason Onset Date Comments Pre-visit Testing Orders 10/27/2023 Encounter Details Date Type Department Care Team (Latest Contact Info) Description 10/27/2023 Clinical Communication Department of Cardiovascular Medicine in [place], [place] [address] [place] [phone] General Production Worker, Alex Storey Pre-visit Testing Orders Social History Tobacco Use Types Packs/Day Years [...] often do you attend chur ch or uatsdin services? More than 4 times per year [...] Answer Date Recorded PHQ-2 Score 1 03/01/2022 [facility] - Occupational Stress Questionnaire Answer Date [...] place to sleep or slept in a fci (including now)? No 03/19/2022 Depression Answer Date [...] PM CDT Clinical Communication Virtual Review in [place], [place] [address] [place] [address] 01/16/2024 6:40 AM CDT Ancillary Procedure Department of Cardiovascular Medicine in [place], [place] [address] [place] [phone] Chriss Robles Jr., M.D. [address] [place] [phone] 01/16/2024 7:10 AM CDT Appointment Department of Laboratory Medicine and Pathology, [facility] in [place], [place] [address] [place] [address] Chriss Robles Jr., M.D. [address] [place] [phone] 01/16/2024 7:45 AM CDT Appointment Department of Radiology, [facility] in [place], [place] [address] [place] [address] Chriss Robles Jr., M.D. [address] [place] [phone] 01/16/2024 11:00 AM CDT Office Visit Department of Cardiovascular Medicine in [place], [place] [address] [place] [address] Chriss Robles Jr., M.D. [address] [place] [phone] Scheduled Orders Name Type Priority Associated Diagnoses Order Schedule Albumin Lab Routine Regurgitation Mitral Prosthesis Aortic Valve Expected: 01/16/2024, Expires: 10/26/2024 Creatinine with Estimated GFR Lab Routine Regurgitation Mitral Prosthesis Aortic Valve Expected: 01/16/2024, Expires: 10/26/2024 Glucose, Fasting Lab Routine Regurgitation Mitral Prosthesis Aortic Valve Expected: 01/16/2024, Expires: 10/26/2024 Potassium Lab Routine Regurgitation Mitral Prosthesis Aortic Valve Expected: 01/16/2024, Expires: 10/26/2024 Sodium Lab Routine Regurgitation Mitral Prosthesis Aortic Valve Expected: 01/16/2024, Expires: 10/26/2024 Prothrombin Time (PT) Lab Routine Regurgitation Mitral Prosthesis Aortic Valve Expected: 01/16/2024, Expires: 10/26/2024 CBC with Differential, Blood Lab Routine Regurgitation Mitral Prosthesis Aortic Valve Expected: 01/16/2024, Expires: 10/26/2024 Lipid Panel Lab Routine Regurgitation Mitral Prosthesis Aortic Valve Expected: 01/16/2024, Expires: 10/26/2024 DX Chest AP or PA and Lateral 2 Views Imaging RAD - Routine (most inpatients and all outpatients) Regurgitation Mitral Prosthesis Aortic Valve Expected: 01/16/2024, Expires: 10/26/2024 NT-Pro B-Type Natriuretic Peptide (BNP) Lab Routine Regurgitation Mitral Prosthesis Aortic Valve Expected: 01/16/2024, Expires: 10/26/2024 Echo Transthoracic (TTE) - Complex Valvular Heart Disease Echocardiography Routine Regurgitation Mitral Prosthesis Aortic Valve Expected: 01/16/2024, Expires: 01/26/2025 ECG 12 Lead ECG Routine Regurgitation Mitral Prosthesis Aortic Valve Expected: 01/16/2024, Expires: 01/26/2025 documented as of this encounter Visit Diagnoses Diagnosis Regurgitation Mitral- Primary Prosthesis Aortic Valve documented in this encounter Additional Health Concerns Assessment Noted Time PHQ-9 Depression Total Score: 3 03/01/20 22 7:00 PM 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
--- OUTSIDE RECORDS SUMMARY | 2024-01-01 15:15 | XMS_ITS | Encounter Summary ---
Author Organization [facility] Address [address] [place] [address] Care Team Providers Care Welder Operator Name Role Phone Elsewhere, Pcp Primary Care Provider Unavailabl e Encounter Details Date Type Department Care Team (Late st Contact Info) Description 05/17/2005 Historical Ophthalmology RST OPH Kya Mason M.D., [...] Notes * Kya Mason M.D., Ph.D. - 05/17/2005 12:00 AM CST Eye General CHIEF COMPLAINT Follow-up contact dermatitis, right eye HISTORY OF PRESENT ILLNESS Patient states eye is better today. Itching and mattering continues. Has continued the warm soaks as instructed only 2x/day. Vision normal. When she wears glasses, the eye aguilar. IMPRESSION / REPORT / PLAN #1 contact dermatitis vs. preseptal cellulitis, right eye #2 meibomian gland dysfunction, both eyes As the erythema appears to be decreasing and given that she has the periorbital erythema as well asa patch above her right brow and another small patch by her left upper eyelid, I am more inclined to think this is a dermatitis than a cellulitis. Plan: finish course of Keflex continue EES to periorbital skin warm compresses only 1-2x/day with no soaps or other ointments around eye I will see her back in 2-3 weeks to see how she is doing and will consider dermatitis work-up at that time if scaling remains, or if solely from meibomian gland dysfunction, will consider doxycyclinefor treatment. She understand that if swelling increases, or if she developes any changes in her vision, she should go to the ER or call me immediately. DIAGNOSIS #1 contact dermatitis vs. preseptal cellulitis, right eye #2 meibomian gland dysfunction, both eyes CDM Reports - EYEGEN Id: [id number] Status: Fnl documented in this encounter Plan of Treatment Upcoming Encounters Date Type Department Care Team (Latest Contact Info) Description 01/14/2024 2:00 PM CDT Clinical Communication Virtual Review in [address] [phone] 01/16/2024 6:40 AM CDT Ancillary Procedure Department of Cardiovascular Medicine in [address] [address] Chriss Robles Jr., M.D. [address] [place] [phone] 01/16/2024 7:10 AM CDT Appointment Department of Laboratory Medicine and Pathology, [facility] in [address] [address] Chriss Robles Jr., M.D. [address] [place] [phone] 01/16/2024 7:45 AM CDT Appointment Department of Radiology, [facility] in [address] [address] Chriss Robles Jr., M.D. [address] [place] [phone] 01/16/2024 11:00 AM CDT Office Visit Department of Cardiovascular Medicine in [place], [place] [address] [place] [address] Chriss Robles Jr., M.D. 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
--- OUTSIDE RECORDS SUMMARY | 2024-01-01 15:15 | XMS_ITS | Encounter Summary ---
Author Organization [facility] Address [address] [place] [address] Care Team Providers Care Customer Account Administrator Name Role Phone Elsewhere, Pcp Primary Care Provider Unavailabl e Reason for Visit * Outpatient (Routine) - Closed Specialty Diagnoses / Procedures Referred By Rica bullock Referred To Contact Sleep Medicine Joan Jones M.D. [address] [place] [phone] [facility] Referral ID Status Reason Start Date Expiration Date Visits Re quested Visits Authorized [id number] Closed 03/21/2023 03/20/2026 1 1 Encounter Details Date Type Department Care Team (Late st Contact Info) Description 12/22/2023 4:15 PM CDT Office Visit [facility] in [place], [place] [address] [place] [phone] Hira Shah M.D. [address] [place] [phone] Lawrence Gonzalez M.D. [address] [place] [phone] Apnea Sleep Obstructive (Primary Dx) Social History Tobacco Use Types Packs/Day Years Used Date Smoking Tobacco: Former Cigarettes 0.3 20 1 - 05/22/1981 Passive Smoke Exposure: Past Smokeless Tobacco: Never Alcohol Use Standard Drinks/Week Comments Yes 2 (1 standard drink = 0.6 oz pur e alcohol) [facility] Utilities Answer Date Recorded In the past 12 months has e electric, gas, oil, or water company threatened to [...] often do you attend chur ch or hindu services? More than 4 times per year 03/19/2022 Do you belong to any clubs o r organizations such as judaism groups, unions, fraternal or athletic groups, or [...] Answer Date Recorded PHQ-2 Score 1 03/01/2022 [facility] Occupat ional [facility] - Occupational Stress Questionnaire Answer Date Recorded [...] PM CDT documented as of this encounter Last Filed Vital Signs Vital Sign Reading Time Taken Comments Blood Pressure 117/69 12/22/2023 3:31 PM CDT Pulse 77 12/22/2023 3:31 PM CDT Temperature - - Respiratory Rate - - Oxygen Saturation - - Inhaled Oxygen Concentration - - Weight 99.9 kg (220 lb 2.1 oz) 12/22/19 24 3:31 PM CDT sandals on Height 163.6 cm (5' 4.41) 12/22/2023 3 :31 PM CDT sandals on Body Mass Index 37.31 12/22/2023 3:31 PM CDT documented in this encounter Progress Notes * Lawrence Gonzalez M.D. - 12/22/2023 4:15 PM CDT SUBJECTIVE CHIEF COMPLAINT / REASON FOR VISIT Supervision of continuity clinic long-term CPAP recheck visit. HISTORY OF PRESENT ILLNESS Ms. Mukherjee is a 78 y.o. female who presents for a long-term CPAP recheck visit. I met [id number] with the patient to review her history, and I personally reviewed the compliance report downloaded from her CPAP device. I discussed the case in detail with Hira Shah MD and I reviewed impressions and plans with the patient. Mrs. Mukherjee has a history of severe obstructive sleep apnea for which the recommendation to start CPAP was resisted for years. She is now on CPAP and is in need of a new device as the heating elementon her current CPAP unit has malfunctioned. OBJECTIVE VITAL SIGNS Blood Pressure: 117/69 (12/22/2023 3:31 PM) Pulse Rate: 77 (12/22/2023 3:31 PM) BMI (Calculated): 37.3 kg/m?? (12/22/2023 3:31 PM) Height: 163.6 cm (sandals on) (12/22/2023 3:31 PM) Weight: 99.9 kg (sandals on) (12/22/2023 3:31 PM) ASSESSMENT / PLAN #1 Obstructive sleep apnea I thanked the patient for her CPAP usage efforts. I agree with Dr. Shah's plan to provide a prescription to obtain a new CPAP device. Mrs. Mukherjee should continue to aim for all night, every night CPAP usage, replace CPAP supplies at regular intervals, and see us annually for CPAP recheck visits. Total time 10 minutes includes dcso-oo-cabx and gxj-cghf-pi-face pre and post visit tasks performedon the day of the patient encounter. * Hira Shah M.D. - 12/22/2023 4:15 PM CDT Images from the original note were not included. SUBJECTIVE CHIEFCOMPLAINT/REASON FOR CONSULT Follow up HISTORY OF PRESENT ILLNESS 78 female with history of severe obstructive sleep apnea, diastolic heart failure, coronary artery disease, history of TAVR, paroxysmal AFib, type 2 diabetes, CKD stage 3 was seen in the clinic for follow up. Obstructive sleep apnea was initially diagnosed in 2004 with an AHI of 88. Patient did not want to use CPAP at that time. In 2017, she had another polysomnogram done with split night study which was showing an AHI of 74. Patient did not want to use PAP and tried oral appliance. The AHI did drop from 74 to 33 but continued to have symptoms. Finally, she was able to try CPAP at the pressure of 5 CWP. With CPAP, her AHI dropped to minimum with adequate control of symptoms. Patient has been using her device quite regularly. On some nights, she does not use it for more than 4 hours. In this visit, patient is telling me that the heating element of the machine has been malfunctioning. She did touch base with vendor who recommended her to follow up with sleep medicine team for a new prescription. Her current machine is more than 7 years old and is due for the new machine. Patient goes to bed at about 11:00 p.m.and falls asleep in 15 minutes. Tells me that she is on diuretics and sometimes has to wake up 2-3 times at night to go to the restroom. Quite frequently, she takes about 1-2 hours to go back to sleep after waking up in the middle of the night to go to the restroom. Patient tells me that she uses her cell phone in those 2 hours. Finally goes back to sleep at 5:00 a.m. In the morning, she wakes up at 9:00 a.m.. After waking up, she is usually refreshed withoccasional dryness of the mouth and no headaches. No specific symptoms of restless legs syndrome, narcolepsy or parasomnias. Her ESS is 9. Phoenix Total score: 9 Promis 10 Flowsheet Row Office Visit from 12/22/2023 in [facility] [place], [place] Comprehensive Visit from 03/22/2022 in [facility] [place], [place] Patient Message from 12/16/2017 in Department of Orthopedic Surgery in [place], [place] RST Conversion Encounter from 01/23/2017 in [facility]X RST NO MAPPING RST Conversion Encounter from 10/30/2016 in [facility]X RST NO MAPPING [id number] Physical Health Raw Score 13 15 14 14 9 [id number] Physical Health T-Score 42.3 47.7 44.9 44.9 32.4 [id number] Mental Health Raw Score 17 13 16 19 16 [id number] Mental Health T-Score 56 45.8 53.3 62.5 53.3 OBJECTIVE VITAL SIGNS Blood Pressure: 117/69 (12/22/2023 3:31 PM) Pulse Rate: 77 (12/22/2023 3:31 PM) BMI (Calculated): 37.3 kg/m?? (12/22/2023 3:31 PM) Height: 163.6 cm (sandals on) (12/22/2023 3:31 PM) Weight: 99.9 kg (sandals on) (12/22/2023 3:31 PM) Not in distress. Cha tongue score 3. ASSESSMENT / PLAN Severe obstructive sleep apnea with AHI of 74 Diastolic heart failure Coronary artery disease Paroxysmal AFib Type 2 diabetes, CKD stage 3 Recent CPAP machine malfunction and is in need of a new machine Patient does have severe obstructive sleep apnea. Her compliance is somewhat suboptimal and she wasrecommended to continue to use CPAP for more hours every night. She was also recommended to try to avoid any electronics when she wakes up in the middle of the night to have a continuous sleep. Patient understand these instructions and will follow. She will be given a new prescription for new CPAP equipment with CPAP at the pressure of 5. We would follow up in 1 year. She was recommended to communicate with the office if she has any concerns in the meantime. Discussed with Dr oGnzalez documented in this encounter Plan of Treatment Upcoming Encounters Date Type Department Care Team (Latest Contact Info) Description 01/14/2024 2:00 PM CDT Clinical Communication Virtual Review in [address] [phone] 01/16/2024 6:40 AM CDT Ancillary Procedure Department of Cardiovascular Medicine in [address] [phone] Chriss Robles Jr., M.D. [address] [place] [phone] 01/16/2024 7:10 AM CDT Appointment Department of Laboratory Medicine and Pathology, [facility] in [address] [phone] Chriss Robles Jr., M.D. [address] [place] [phone] 01/16/2024 7:45 AM CDT Appointment Department of Radiology, [facility] in [address] [phone] Chriss Robles Jr., M.D. [address] [place] [phone] 01/16/2024 11:00 AM CDT Office Visit Department of Cardiovascular Medicine in [address] [phone] Chriss Robles Jr., M.D. 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
--- OUTSIDE RECORDS SUMMARY | 2024-01-01 15:15 | XMS_ITS | Encounter Summary ---
Author Organization [facility] Address [address] [place] [address] Care Team Providers Care Sde Name Role Phone Elsewhere, Pcp Primary Care Provider Unavailabl e Encounter Details Date Type Department Care Team (Late st Contact Info) Description 12/07/2023 CPAP Download Remote Patient Monitoring [facility] [address] 200 [place] [address] [facility], Provider, M.B., Ph.D. Social History Tobacco Use Types Packs/Day [...] often do you attend chur ch or pentecostalism services? More than 4 times per year 03/19/2022 Do you belong to any clubs o r organizations such as bahai groups, unions, fraternal or athletic groups, or [...] Answer Date Recorded PHQ-2 Score 1 03/01/2022 [facility] of Occupat ional Health - Occupational Stress [...] place to sleep or slept in a usp (including now)? No 03/19/2022 Depression Answer Date [...] PM CDT Clinical Communication Virtual Review in [place], [place] [address] [place] [address] 01/16/2024 6:40 AM CDT Ancillary Procedure Department of Cardiovascular Medicine in [place], [place] [address] [place] [address] Chriss Robles Jr., M.D. [address] [place] [address] 01/16/2024 7:10 AM CDT Appointment Department of Laboratory Medicine and Pathology, [facility] in [place], [place] [address] [place] [address] Chriss Robles Jr., M.D. [address] [place] [address] 01/16/2024 7:45 AM CDT Appointment Department of Radiology, [facility] in [place], [place] [address] [place] [address] Chriss Robles Jr., M.D. [address] [place] [phone] 01/16/2024 11:00 AM CDT Office Visit Department of Cardiovascular Medicine in [place], [place] [address] [place] [address] Chriss Robles Jr., M.D. 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
--- OUTSIDE RECORDS SUMMARY | 2024-01-01 15:15 | XMS_ITS | Encounter Summary ---
Author Organization [facility] Address [address] [place] [address] Care Team Providers Care Patient Registration Representative Name Role Phone Elsewhere, Pcp Primary Care Provider Unavailabl e Reason for Referral * Outpatient (Routine) - Closed Specialty Diagnoses / Procedures Referred By Rica bullock Referred To Contact Dermatology Diagnoses Malignant Neoplasm Of Leg Basal Cell Carcinoma Left Camila Goodman M.B.B.S., M.D. [address] [place] [phone] [facility] Referral ID Status Reason Start Date Expiration Date Visits Re quested Visits Authorized [id number] Closed 09/25/2023 03/26/2025 1 1 Scheduling Instructions Patient needs ED&C/Left Lower Leg - Anterior/Superficial and nodular BCC Encounter Details Date Type Department Care Team (Late st Contact Info) Description 09/25/2023 Orders Only Department of Dermatology in [place], [place] [address] [place] [phone] Camila Goodman M.B.B.S., M.D. [address] [place] [phone] Malignant Neoplasm Of Leg Basal Cell Carcinoma Left (Primary Dx) Social History Tobacco Use Types [...] often do you attend chur ch or pentecostal services? More than 4 times per year 03/19/2022 Do you belong to any clubs o r organizations such as jew groups, unions, fraternal or athletic groups, or [...] Answer Date Recorded PHQ-2 Score 1 03/01/2022 [facility] of Occupat ional Health - Occupational Stress [...] place to sleep or slept in a skilled nursing (including now)? No 03/19/2022 Depression Answer Date [...] PM CDT Clinical Communication Virtual Review in [place], [place] 200 [place] [address] 01/16/2024 6:40 AM CDT Ancillary Procedure Department of Cardiovascular Medicine in [place], [place] [address] [place] [phone] Chriss Robles Jr., M.D. [address] [place] [phone] 01/16/2024 7:10 AM CDT Appointment Department of Laboratory Medicine and Pathology, [facility] in [place], [place] [address] [place] [phone] Chriss Robles Jr., M.D. [address] [place] [phone] 01/16/2024 7:45 AM CDT Appointment Department of Radiology, [facility] in [place], [place] [address] [place] [phone] Chriss Robles Jr., M.D. [address] [place] [phone] 01/16/2024 11:00 AM CDT Office Visit Department of Cardiovascular Medicine in [place], [place] [address] [place] [address] Chriss Robels Jr., M.D. 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
--- OUTSIDE RECORDS SUMMARY | 2024-01-01 15:15 | XMS_ITS | Encounter Summary ---
Author Organization [facility] Address [address] [place] [address] Care Team Providers Care Field Adjuster Name Role Phone Elsewhere, Pcp Primary Care Provider Unavailabl e Encounter Details Date Type Department Care Team (Late st Contact Info) Description 10/06/2023 CPAP Download Remote Patient Monitoring [facility] [address] 200 [place] [address] [facility], Provider, M.B., Ph.D. Social History Tobacco Use [...] often do you attend chur ch or jehovah's witness services? More than 4 times per year 03/19/2022 Do you belong to any clubs o r organizations such as druze groups, unions, fraternal or athletic groups, or [...] Answer Date Recorded PHQ-2 Score 1 03/01/2022 [facility] of Occupat ional Health - [...] place to sleep or slept in a snf (including now)? No 03/19/2022 Depression Answer Date [...] PM CDT Clinical Communication Virtual Review in [place], [place] [address] [place] [address] 01/16/2024 6:40 AM CDT Ancillary Procedure Department of Cardiovascular Medicine in [place], [place] [address] [place] [address] Chriss Robles Jr., M.D. [address] [place] [address] 01/16/2024 7:10 AM CDT Appointment Department of Laboratory Medicine and Pathology, [facility] in [place], [place] [address] [place] [address] Chriss Robles Jr., M.D. [address] [place] [address] 01/16/2024 7:45 AM CDT Appointment Department of Radiology, [facility] in [place], [place] [address] [place] [address] Chriss Robles Jr., M.D. [address] [place] [phone] 01/16/2024 11:00 AM CDT Office Visit Department of Cardiovascular Medicine in [place], [place] [address] [place] [address] Chriss Robles Jr., M.D. 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
--- OUTSIDE RECORDS SUMMARY | 2024-01-01 15:15 | XMS_ITS | Encounter Summary ---
Author Organization [facility] Address [address] [place] [address] Care Team Providers Care Carpenter Helper Name Role Phone Elsewhere, Pcp Primary Care Provider Unavailabl e Reason for Visit * Outpatient (Routine) - Closed Specialty Diagnoses / Procedures Referred By Rica bullock Referred To Contact Dermatology Diagnoses Malignant Neoplasm Of Leg Basal Cell Carcinoma Left Sominidi Camila Gómez M.B.B.SPatricia, MLauryn. [address] [place] [phone] [facility] Referral ID Status Reason Start Date Expiration Date Visits Re quested Visits Authorized [id number] Closed 09/25/2023 03/26/2025 1 1 Encounter Details Date Type Department Care Team (Late st Contact Info) Description 12/25/2023 3:00 PM CDT Office Visit Department of Dermatology in [place], [place] [address] [place] [phone] Max Garrett M.D., M.B.A. [address] [place] [phone] Malignant Neoplasm Of Leg Basal Cell Carcinoma Left Discharge Disposition: Home or Self Care Social History Tobacco Use Types Packs/Day Years Used Date Smoking Tobacco: Former Cigarettes 0.3 20 1 - 05/22/1981 Passive Smoke Exposure: Past Smokeless Tobacco: Never Alcohol Use Standard Drinks/Week Comments Yes 2 (1 standard drink = 0.6 oz pur e alcohol) [facility] Utilities Answer Date Recorded In the past [...] often do you attend chur ch or advent services? More than 4 times per year 03/19/2022 Do you belong to any clubs o r organizations such as amish groups, unions, fraternal or athletic groups, or [...] Answer Date Recorded PHQ-2 Score 1 03/01/2022 [facility] of Occupat ional Health - Occupational Stress [...] PM CDT documented as of this encounter Consult Notes * Max Garrett M.D., M.B.A. - 12/25/2023 3:00 PM CDT Correspondence to Max Garrett M.D., M.B.A. CHIEF COMPLAINT / REASON FOR VISIT Superficial and nodular basal cell carcinoma, left lower leg anterior HISTORY OF PRESENT ILLNESS Ms. Katy Mukherjee is a 78 y.o. female who presents today for the above. She has a history of nonmelanoma skin cancer and was last seen in September 2023 for skin check -- at that time, a biopsy was performed on the left lower leg anterior. This was found to be a Superficial and nodular basal cell carcinoma (see pathology report below) for which she now presents for ED&C treatment. PHYSICAL EXAM General: Awake, alert, in no acute distress, and with appropriate affect. Skin: I have examined the bilateral lower extremities. The examination was notable for a scaly erythematous plaque on the left anterior hickman consistent with prior biopsy site. DERMATOPATHOLOGY A. Left Lower Leg - Anterior, Skin shave biopsy: Superficial and nodular basal cell carcinoma, involving biopsy borders and seborrheic keratosis ASSESSMENT / PLAN #1 Superficial and nodular basal cell carcinoma, left lower leg anterior Given the location & size & histologic features, it was determined that electrodesiccation and curettage would be an appropriate treatment for this condition. Benefits and risks including butnot limited to infection, bleeding, recurrence and scar formation were reviewed and questions answered. Patient elected to proceed. The anesthesia used was 1% lidocaine with epinephrine 1:200,000. The skin was prepped in a sterile fashion with alcohol. The lesion was curetted with a 3-mm curette in three different directions and electrodesiccation of the base until clinically tumor-free margins were obtained. Postoperative size: 1.0 x 1.0 cm. Estimated blood loss: Minimal. Complications: None. Wound care: Routine. FIRE RISK ASSESSMENT Procedure site at the xiphoid or above? 1 - Yes Open Oxygen Source (SupplementalO2, via face mask/nasal cannula, nitrous oxide)? 0 - No Ignition Source (eg. cautery/cautery pen, laser, fiber optic light)? 1 - Yes Fire Risk Score 2 All questions answered. It was our pleasure seeing Katy Mukherjee today. The patient has been seen and examined with Dr. Hennessy. Associated attestation - Gloria Monique M.B.B.S. - 12/25/2023 4:22 PM CDT I saw and evaluated the patient, participating in the vaughn portions of the service. I reviewed the resident???s note. I agree with the resident???s findings and plan. I was present for the vaughn/critical portion and immediately available for the entire procedure. documented in this encounter Plan of Treatment Upcoming Encounters Date Type Department Care Team (Latest Contact Info) Description 01/14/2024 2:00 PM CDT Clinical Communication Virtual Review in [place], [place] 200 [place] [address] 01/16/2024 6:40 AM CDT Ancillary Procedure Department of Cardiovascular Medicine in [place], [place] [address] [place] [phone] Chriss Robles Jr., M.D. [address] [place] [phone] 01/16/2024 7:10 AM CDT Appointment Department of Laboratory Medicine and Pathology, [facility] in [place], [place] [address] [place] [phone] Chriss Robles Jr., M.D. [address] [place] [phone] 01/16/2024 7:45 AM CDT Appointment Department of Radiology, [facility] in [place], [place] [address] [place] [phone] Chriss Robles Jr., M.D. [address] [place] [address] 01/16/2024 11:00 AM CDT Office Visit Department of Cardiovascular Medicine in [place], [place] [address] [place] [address] Chriss Robles Jr., M.D. [address] [place] [address] documented as of this encounter Visit Diagnoses Diagnosis Malignant Neoplasm Of Leg Basal Cell Carcinoma Left documented in this encounter Additional Health Concerns Assessment Noted Time PHQ-9 Depression Total Score: 3 03/01/20 22 7:00 PM FAMILY PRACTICE NURSE PRACTITIONER documented as of this encounter Care Teams Carpenter Helper Relationship Specialty Start Date End Date Elsewhere, Pcp PCP - General Internal Medicine 01/21/22 documented as of this encounter
--- OUTSIDE RECORDS SUMMARY | 2024-01-01 15:15 | XMS_ITS | Encounter Summary ---
Author Organization [facility] Address [address] [place] [address] Care Team Providers Care Doughnut Dough Mixer Name Role Phone Elsewhere, Pcp Primary Care Provider Unavailabl e Encounter Details Date Type Department Care Team (Late st Contact Info) Description 05/16/2005 Historical Ophthalmology RST OPH Kya Mason M.D., [...] Notes * Kya Mason M.D., Ph.D. - 05/16/2005 12:00 AM CST Eye General CHIEF COMPLAINT Redness HISTORY OF PRESENT ILLNESS Redness on right eye since friday. Has been dealing with blepharitis since 03/18, with the right eye always being worse. Has been doing warm soaks/baby shampoo/eyelid massage 4-5x/day. States there are breaks in arelis skin around eyelid. Has been red an puffy around right eye for the past week, but ~ 5 days ago started getting very red. Feels mattery and discomfort along breaks in eyelid skin. Yesterday was very itchy. No diplopia. No pain with eye movement. No colds or sinus infections. IMPRESSION / REPORT / PLAN #1 contact dermatitis vs. preseptal cellulitis, right eye #2 meibomian gland dysfunction, both eyes More likely contact dermatitis and irritation given that she has two separate lesions, and that they are erythmatous, scaly and itchy. I think she may be a bit too aggressive with the eyelid hygeine and all of the manipulation and rubbing of the eyelids may be making her symptoms worse. I will have her decrease the eyelid hygeine to 1-2x/day with only minimal massage, no shampoo, no agressive rubbing. Once this episode resolves/improves, will consider doxycycline treatment for meibomian gland dysfunction. I also do not want her placing other creams/vaselines around the eye as that skin may be sensitive.I will have her use erythromycin ointment bid for now. I think it is a good idea that she has been started on keflex and will encourage her to complete the course given the rawness of her eyelid margins. I would like to see her back tomorrow to make sure that this is not progressing further. I have marked the area of redness with a skin marker for comparison tomorrow. DIAGNOSIS #1 contact dermatitis vs. preseptal cellulitis, right eye #2 meibomian gland dysfunction, both eyes CDM Reports - EYEGEN Id: [id number] Status: Fnl documented in this encounter Plan of Treatment Upcoming Encounters Date Type Department Care Team (Latest Contact Info) Description 01/14/2024 2:00 PM CDT Clinical Communication Virtual Review in [address] [phone] 01/16/2024 6:40 AM CDT Ancillary Procedure Department of Cardiovascular Medicine in [address] [phone] Chriss Robles Jr., M.D. [address] [place] [phone] 01/16/2024 7:10 AM CDT Appointment Department of Laboratory Medicine and Pathology, [facility] in [address] [address] Chriss Robles Jr., M.D. [address] [place] [address] 01/16/2024 7:45 AM CDT Appointment Department of Radiology, [facility], in [place], [place] [address] [place] [address] Chriss Robles Jr., M.D. [address] [place] [address] 01/16/2024 11:00 AM CDT Office Visit Department of Cardiovascular Medicine in [place], [place] [address] [place] [address] Chriss Robles Jr., M.D. 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
--- OUTSIDE RECORDS SUMMARY | 2024-01-01 15:15 | XMS_ITS | Encounter Summary ---
Author Organization [facility] Address [address] [place] [address] Care Team Providers Care Kieselguhr Regenerator Operator Name Role Phone Elsewhere, Pcp Primary Care Provider Unavailabl e Encounter Details Date Type Department Care Team (Late st Contact Info) Description 09/24/2023 Clinical Communication Department of Dermatology in [place], [place] [address] [place] [address] Jessica Brunner, RPatriciaNPatricia [address] [place] [phone] Social History Tobacco Use Types Packs/Day Years [...] How often do you attend chur or congregation services? More than 4 times per year 03/19/2022 Do you belong to any clubs o r organizations such as sikh groups, unions, fraternal or athletic groups, or [...] Answer Date Recorded PHQ-2 Score 1 03/01/2022 [facility] - Occupational Stress [...] place to sleep or slept in a chcf (including now)? No 03/19/2022 Depression Answer Date [...] PM CDT documented as of this encounter Miscellaneous Notes * Telephone Encounter - Jessica Brunner R.N. - 09/24/2023 12:32 PM CDT Information Discussed HISTORY OF PRESENT ILLNESS Patient calls concerned about shave biopsy of the left leg by Dr. Fiona Gómez ([phone]) on 09/18/23. Patient is concerned about tenderness in/around the wound and redness around the wound. Patient describes the wound as a little red, she has had cellulitis in the past and she is not concerned thisis cellulitis. Patient is washing the area with soap and water and applying Vaseline twice daily. Patient is able to send a photo. Patient was reassured that the wound may be tender to touch or pressure, may be swollen or bruised,may be red where the sutures enter the skin or around the edge of the wound, may have some drainagewhich may be pink tinged or yellow tinged and about the consistency of water, and may be a white orpale yellow color in the center. Patient was advised that if the lesion was a skin cancer, it will not heal completely or look normal until the skin cancer is fully treated. Reviewed signs and symptoms of infection, including worsening pain or pain not controlled by pain medications, increasing redness, bruising, or swelling, skin or wound is warm to the touch, thick, foul-smelling, cottage cheese like drainage, chills, or fever of greater of 100.4 degrees Fahrenheit. After discussion, patient decided they would not need an appointment for in- person evaluation. We will await photos. PLAN Disposition/Recommendation: awaiting photos Information/Education: patient/caller able to teach back Caller agreeable to plan of care: yes The following references were used: nursing clinical judgement documented in this encounter Plan of Treatment Upcoming Encounters Date Type Department Care Team (Latest Contact Info) Description 01/14/2024 2:00 PM CDT Clinical Communication Virtual Review in [place], [place] 200 [place] [address] 01/16/2024 6:40 AM CDT Ancillary Procedure Department of Cardiovascular Medicine in [address] [address] Chriss Robles Jr., M.D. [address] [place] [phone] 01/16/2024 7:10 AM CDT Appointment Department of Laboratory Medicine and Pathology, [facility] in [place], [place] [address] [place] [address] Chriss Robles Jr., M.D. [address] [place] [phone] 01/16/2024 7:45 AM CDT Appointment Department of Radiology, [facility] in [place], [place] [address] [place] [address] Chriss Robles Jr., M.D. [address] [place] [phone] 01/16/2024 11:00 AM CDT Office Visit Department of Cardiovascular Medicine in [place], [place] [address] [place] [phone] Chriss Robles Jr., M.D. [address] [place] [phone] documented as of this encounter Visit Diagnoses Not on filedocumented in this encounter Additional Health Concerns Assessment Noted Time PHQ-9 Depression Total Score: 3 03/01/20 22 7:00 PM LYE TREATER documented as of this encounter Care Teams Kieselguhr Regenerator Operator Relationship Specialty Start Date End Date Elsewhere, Pcp PCP - General Internal Medicine 01/21/22 documented as of this encounter
--- OUTSIDE RECORDS SUMMARY | 2024-01-01 15:15 | XMS_ITS | Encounter Summary ---
Author Organization [facility] Address [address] [place] [address] Care Team Providers Care Loss Prevention Consultant Name Role Phone Elsewhere, Pcp Primary Care Provider Unavailabl e Encounter Details Date Type Department Care Team (Late st Contact Info) Description 11/06/2023 CPAP Download Remote Patient Monitoring [facility] [address] [place] [address] [facility], Provider, M.B., Ph.D. Social History Tobacco Use [...] often do you attend chur ch or yazidism services? More than 4 times per year 03/19/2022 Do you belong to any clubs o r organizations such as alevism groups, unions, fraternal or athletic groups, or [...] Date Recorded PHQ-2 Score 1 03/01/2022 [facility] - Occupational [...] place to sleep or slept in a retirement (including now)? No 03/19/2022 Depression Answer Date [...] PM CDT Clinical Communication Virtual Review in [place], [place] [address] [place] [address] 01/16/2024 6:40 AM CDT Ancillary Procedure Department of Cardiovascular Medicine in [place], [place] [address] [place] [address] Chriss Robles Jr., M.D. [address] [place] [address] 01/16/2024 7:10 AM CDT Appointment Department of Laboratory Medicine and Pathology, [facility] in [place], [place] [address] [place] [address] Chriss Robles Jr., M.D. [address] [place] [address] 01/16/2024 7:45 AM CDT Appointment Department of Radiology, [facility] in [place], [place] [address] [place] [address] Chriss Robles Jr., M.D. [address] [place] [phone] 01/16/2024 11:00 AM CDT Office Visit Department of Cardiovascular Medicine in [place], [place] [address] [place] [address] Chriss Robles Jr., M.D. [address] [place] [phone] documented as of this encounter Visit Diagnoses Not on filedocumented in this encounter Additional Health Concerns Assessment Noted Time PHQ-9 Depression Total Score: 3 03/01/20 22 7:00 PM THREAT ANALYST documented as of this encounter Care Teams Loss Prevention Consultant Relationship Specialty Start Date End Date Elsewhere, Pcp PCP - General Internal Medicine 01/21/22 documented as of this encounter
--- OUTSIDE RECORDS SUMMARY | 2024-01-01 15:15 | XMS_ITS | Encounter Summary ---
Author Organization [facility] Address [address] [place] [address] Care Team Providers Care Lead Installer Name Role Phone Elsewhere, Pcp Primary Care Provider Unavailabl e Encounter Details Date Type Department Care Team (Late st Contact Info) Description 03/11/2006 Historical Ophthalmology RST OPH Fabián Castellano M.D. [address] [place] [phone] Social History Tobacco Use Types Packs/Day Years Used Date Smoking Tobacco: Never Assessed Sex and Gender Information Value Date Recorded Sex Assigned at Female 12/31/2020 10:01 AM CDT Gender Identity Female 12/16/2017 12:50 PM CDT Sexual Orientation Straight 12/16/2017 12 :50 PM CDT documented as of this encounter Progress Notes * Fabián Castellano M.D. - 03/11/2006 12:00 AM CST Eye General HISTORY OF PRESENT ILLNESS Denies vision complaints at distance and near with current glasses. Matter ,crusting in lids in themornings (both eyes). States past blepharitis with over treatment and increased lid irritation x2 months. Seen by dermatology ; treated with topical ointment which resolved irritation but continues crusting. Denies flashes or floaters (both eyes). IMPRESSION / REPORT / PLAN #1 Drusen LE Discussed vitamins and A[place]ler DIAGNOSIS #1 Drusen LE CDM Reports - EYEGEN Id: [id number] Status: Fnl documented in this encounter Plan of Treatment Upcoming Encounters Date Type Department Care Team (Latest Contact Info) Description 01/14/2024 2:00 PM CDT Clinical Communication Virtual Review in [place], [place] [address] [place] [address] 01/16/2024 6:40 AM CDT Ancillary Procedure Department of Cardiovascular Medicine in [place], [place] [address] [place] [phone] Chriss Robles Jr., M.D. [address] [place] [phone] 01/16/2024 7:10 AM CDT Appointment Department of Laboratory Medicine and Pathology, [facility] in [address] [phone] Chriss Robles Jr., M.D. [address] [place] [phone] 01/16/2024 7:45 AM CDT Appointment Department of Radiology, [facility] in [address] [address] Chriss Robles Jr., M.D. [address] [place] [phone] 01/16/2024 11:00 AM CDT Office Visit Department of Cardiovascular Medicine in [address] [phone] Chriss Robles Jr., M.D. [address] [place] [phone] documented as of this encounter Visit Diagnoses Not on filedocumented in this encounter Additional Health Concerns Infection Onset Date Last Indicated Resolved Time COVID19 Pending 02/29/2020 02/29/2020 02/29/2020 7 :08 PM AUDIO VISUAL AIDE documented as of this encounter Care Teams Lead Installer Relationship Specialty Start Date End Date Elsewhere, Pcp PCP - General Internal Medicine 01/21/22 documented as of this encounter
--- OUTSIDE RECORDS SUMMARY | 2024-01-01 15:16 | XMS_ITS | Clinical Summary ---
Author Organization [facility] Address [place], [place] [address] Care Team Providers Care Utilities Estimator And Drafter Name Role Phone Martinez Sal MD Primary Care Provider Allergies Active Allergy Reactions Criticality Noted Date Comments Atorvastatin Other - Describe In Comment Field 10/25/2014 [place] poorly Cephalexin Other - Describe In Comment Field 09/27/2014 A little tightness in throat. Takes Benadryl Ciprofloxacin Other - Describe In Comment Field 05/17/2019 throat tightness Clindamycin *Unknown 09/27/2014 Fish Containing Products Hives 09/27/2014 [place]ia Ibuprofen *Unknown 09/27/2014 But tolerates aspirin Sulfa (Sulfonamide Antibiotics) *Unknown 12/02/2014 Sulfamethoxazole-Trimeth oprim *Unknown 09/27/2014 Medications Medication Sig Dispensed Refills Start Date End Date Status meclizine (ANTIVERT) 25 mg tablet Take 25 mg by mouth 3 times daily if needed for Vertigo. Active cholecalciferol (VITAMIN D3) 2,000 unit capsule Take 1 capsule by mouth once daily. 12/10/2016 Active famotidine (PEPCID) 10 mg tablet Take 2 Tabs by mouth once daily. 03/24/2017 Active medication order composer 125 mg vitamin C, reported per PT 0 10/29/2021 Active nitroglycerin (Nitrostat) 0.4 mg sublingual tabletIndications:C oronary artery disease involving [place] coronary artery without angina pectoris, unspecified whether [place] or transplanted heart For chest pain.PLACE 1 TABLET UNDER TONGUE EVERY 5 MINUTES NEEDED FOR CHEST PAIN 25 Tablet 12/10/2021 Active nystatin powder (MYCOSTATIN) powderIndications:S kin yeast infection Apply 1 Strip topically to affected area(s) three times daily. 60 g 12/10/2021 Active ferrous sulfate, 65 mg elemental, (Iron, Ferrous Sulfate,) tablet Take 1 Tablet (325 mg) by mouth once daily with a meal. 0 01/08/2022 Active Accu-Chek Guide Me Glucose Mtr CHECK BLOOD SUGAR TWICE DAILY 04/03/2022 Active metoprolol tartrate (LOPRESSOR) 25 mg tabletIndications:A trial fibrillation with RVR (HC) Take 1 Tablet (25 mg) by mouth two times daily. As needed atrial fibrillation 14 Tablet 04/09/2022 Active meclizine chewable (ANTIVERT) 25 mg tablet three times a day 12/27/2021 Active clotrimazole (LOTRIMIN) 1 % creamIndications:Va ginal yeast infection Apply topically to affected area(s) two times daily. 45 g 2 08/06/2022 Active ketoconazole 2% topical (NIZORAL) cream Apply 1 Application topically to affected area(s). 07/29/2022 Active lancets (Accu-Chek Softclix Lancets)Indications :Type 2 diabetes mellitus without complication, without long-term current use of insulin (HC) CHECK BLOOD SUGAR TWICE DAILY 200 Each 3 12/02/2022 Active ascorbic acid, vitamin C, (VITAMIN C) 1,000 mg tablet Take 1,000 mg by mouth once daily. Active magnesium oxide (MAG-OX 400) 400 mg tabletIndications:L ow magnesium level Take 1 Tablet (400 mg) by mouth two times daily. 180 Tablet 3 02/20/2023 Active Eliquis 5 mg tabletIndications:A trial fibrillation with RVR (HC) TAKE 1 TABLET(5 MG) BY MOUTH TWICE DAILY 180 Tablet 3 04/03/2023 Active Accu-Chek Guide test strips stripIndications:Ty pe 2 diabetes mellitus without complication, without long-term current use of insulin (HC) TEST BLOOD SUGAR TWICE DAILY 200 Each 3 06/02/2023 Active amoxicillin (AMOXIL) 500 mg capsuleIndications: History of revision of total replacement of hip joint TAKE 4 CAPSULES BY MOUTH ONE HOUR BEFORE DENTAL APPT 4 Capsule 2 08/24/2023 Active diltiazem 24 hour (CARDIZEM LA) 360 mg extended release 24 hr tabletIndications:A trial fibrillation with RVR (HC) Take 1 Tablet (360 mg) by mouth once daily. 90 Tablet 1 09/17/2023 Active levothyroxine (SYNTHROID) 150 mcg tabletIndications:O ther specified hypothyroidism TAKE 1 TABLET(150 MCG) BY MOUTH BEFORE BREAKFAST 90 Tablet 10/12/2023 Active metFORMIN (GLUCOPHAGE XR) 500 mg Extended-Release tabletIndications:T ype 2 diabetes mellitus without complication, without long-term current use of insulin (HC) Take 4 Tablets (2,000 mg) by mouth once daily with evening meal. 360 Tablet 10/13/2023 Active rosuvastatin (CRESTOR) 10 mg tabletIndications:H yperlipidemia, unspecified hyperlipidemia type Take 1 Tablet (10 mg) by mouth once daily with evening meal. 90 Tablet 2 11/25/2023 Active furosemide (LASIX) 20 mg tabletIndications:E ssential hypertension Take 1 Tablet (20 mg) by mouth once daily. 90 Tablet 12/13/2023 Active furosemide (LASIX) 20 mg tabletIndications:E ssential hypertension Take 1 Tablet (20 mg) by mouth once daily. 90 Tablet 3 03/26/2023 12/13/19 24 Discontinu ed(*Availa bility/For mulary change/Cos t of medication ) Active Problems Problem Noted Date Diagnosed Date Stage 3b chronic kidney disease 02/19/2023 Thrombocytopenia 07/18/2022 Paroxysmal atrial fibrillation 01/31/2022 Thoracic aortic ectasia 01/31/2022 Tinnitus of both ears 10/30/2021 Sensorineural hearing loss, bilateral 10/30/2021 History of cholecystectomy 10/07/2021 History of hysterectomy 10/07/2021 Type 2 diabetes mellitus wit h stage 3a chronic kidney disease, without long-term current use of insulin 07/30/2021 Chronic diastolic heart failure 10/12/2014 Overview (10/07/2021): Congestive Heart Failure (CHF) Diastolic Chronic (HFpEF) Status post aortic valve replacement with tissue valve 09/28/2014 Overview (10/17/2014): Tissue valve Essential hypertension 09/27/2014 Hypothyroidism 09/27/2014 Presence of artificial hip joint 01/14/2014 Benign paroxysmal positional vertigo 08/14/2010 Atopy 11/10/2009 Hypertrophic cardiomyopathy 07/04/2008 [place] of macula 03/11/2006 Hyperlipidemia 07/23/2004 CAD (coronary artery disease) Edema, lower extremity GERD (gastroesophageal reflux disease) Resolved Problems Problem Noted Date Diagnosed Date Resolved Date Arrhythmia 10/07/2021 10/07/2021 History of aortic valve replacement 10/07/2021 10/07/2021 Hx of section 10/07/202102/19 Acquired absence of both cervix and uterus 10/07/2021 02/19/2023 Acquired absence of other sp ecified parts of digestive tract 10/07/2021 02/19/2023 Stage 3a chronic kidney disease 07/30/2021 09/17/2023 Dupuytren's contracture 08/31/201809/13 Presence of other heart-valve replacement 10/09/2016 10/07/2021 Osteopenia of multiple sites 09/15/2016 10/07/2021 Seborrheic keratosis 09/01/2015 017 Type 2 diabetes mellitus wit hout complication, without long-term current use of insulin 08/03/2015 10/07/2021 Fecal smearing 07/25/2015 02/19/2023 Tongue swelling 09/29/2014 12/10/2016 Elevated blood sugar 09/28/2014 017 Elevated troponin 09/28/2014 12/10/2016 Anticoagulation monitoring, INR range 2-3 09/28/2014 03/08/2015 Paroxysmal atrial fibrillati on (HC), with RVR. CHADSVASC score of 4 09/27/2014 09/27/2020 Overview (10/17/2014): With RVR Elevated troponin 09/27/2014 10/02/2014 Atrial fibrillation 09/22/2014 09/28/19 21 Gastroesophageal reflux disease 03/01/2013 09/27/2020 Actinic keratosis 05/05/2012 12/10/2016 Aortic valve stenosis. s/p v alve replacement 09/19/2014 [facility] 06/17/2011 10/07/2021 Shortness of breath 08/07/2010 06/16/20 21 Hypertrophic cardiomyopathy 07/04/2008 09/27/2020 Trochanteric bursitis 07/04/20052016 Obstructive sleep apnea syndrome 07/23/2004 10/07/2021 Osteoarthritis 12/10/2016 BMI 45.0-49.9, adult 023 Overview (09/28/2014): BMI 48 Encounters Date Type Department Care Team Description 12/10/2023 Refill [facility] [address] [place] [address] Martinez Sal MD Refill Request (Furosemide) 12/03/2023 11:20 AM CDT Ancillary Procedure [facility] [address] [place] [address] 12/03/2023 Travel 11/23/2023 Refill [facility] [address] [place] [address] Martinez Sal MD Refill Request (Rosuvastatin) 10/11/2023 Refill [facility] [address] [place] [address] Martinez Sal MD Refill Request (Metformin) 10/10/2023 Refill [facility] [address] [place] [address] Martinez Sal MD Refill Request (Levothyroxine, Magnesium Oxide) from Last 3 Months Immunizations Name Administration Dates Next Due Amb Influenza, Inactivated A IIV4 (Age 65+ Years) Preserv Free 01/27/2020 COVID-19 vaccine (Moderna 100mcg/0.5mL) PF, MDV 07/11/2020,06/13/2020 COVID-19 vaccine (Pfizer-Bio NTech 30mcg/0.3mL) 12YO+ BIVALENT PF, MDV 01/31/2022 COVID-19 vaccine (Pfizer-Bio NTech 30mcg/0.3mL) 12YO+ SOLE-SUCROSE PF, MDV 07/30/2021 Influenza, High-dose Inactivated 016,12/29/2014,01/14/2014,02/04 Influenza, IIV3 (Age >=3 years) 04/28/2012,03/24,04/01/2005 Influenza, Inactivated AIIV4 (Age 65+ Years) Preserv Free 05/14/2023,01/31/2022,12/27/2020 Influenza, Inactivated IIV3 (Age 65+ Years) Preserv Free 01/01/2019,01/19/2018,12/10/2016 Pneumococcal Conj 20-valent (Prevnar 20) 08/13/2023 Pneumococcal Poly,23-Valent (Pneumovax) 03/24/2010 Pneumococcal conj 13-Valent (Prevnar 13) 07/22/2014 RSV, Bivalent Vaccine Recons tituted (Abrysvo 120MCG/0.5mL) 08/13/2023 Td (Age >=7 Years) 07/19/2002,05/14/1990 Tdap 05/14/2023,05/04/2012 Zoster (Shingrix-RZV, recombinant) 08/28/2018, Family History Medical History Relation Name Comments Cancer Father lung Cancer Mother pancreatic Cancer-breast Mother Cancer-breast Paternal Grandmother Heart Disease Son 2 from myoc arditis Heart Disease Son 3 myocarditis bu t survived Diabetes Son 4 type 1 Cancer-ovarian No Family History Relation Name Status Comments Father Mother Paternal Grandmother Son 1 (Age 19) myocarditi s (also Type 1 DM) Son 2 Son 3 Son 4 Social History Tobacco Use Types Packs/Day Years Used Date Smoking Tobacco: Former Cigarettes 0.2 15 1 967 - 1982 Smokeless Tobacco: Never Tobacco Cessation:Counseling Given: No Alcohol Use Standard Drinks/Week Comments Yes 1 (1 standard drink = 0.6 oz pur e alcohol) occ PHQ-2 Answer Date Recorded PHQ-2 TOTAL SCORE 0 02/19/2023 Social Connections Answer Date Recorded Frequency of Communication with Friends and Fami ly 0 09/17/2023 Financial Resource Strain Answer Date R ecorded Difficulty of Paying Living Expenses 3 09/17/2023 Difficulty of Paying Living Expenses Not on file 09/17/2023 Food Insecurity Answer Date Recorded Worried About Running Out of Food in the Last Ye ar 1 09/17/2023 Transportation Needs Answer Date Record ed Lack of Transportation (Medical) 1 09/17/2023 Housing Stability Answer Date Recorded Unable to Pay for Housing in the Last Year 1 09/17/2023 Sex and Gender Information Value Date Recorded Sex Assigned at Not on file Gender Identity Not on file Sexual Orientation Not on file Obstetrics History Last Filed Vital Signs Vital Sign Reading Time Taken Comments Blood Pressure 146/86 09/17/2023 1:14 PM CDT Pulse 69 09/17/2023 1:14 PM CDT Temperature 36.7 ??C (98 ??F) 02/19/2023 3:09 PM INSIDE SALES TRAINER Respiratory Rate 18 08/27/2022 9:52 AM CDT Oxygen Saturation 97% 09/17/2023 1:14 PM CDT Inhaled Oxygen Concentration - - Weight 98.2 kg (216 lb 9.6 oz) 09/17/2023 1:14 P M CDT Height 158 cm (5' 2.21) 02/19/2023 3:09 PM INSIDE SALES TRAINER Body Mass Index 39.36 02/19/2023 3:09 PM INSIDE SALES TRAINER Plan of Treatment Health Maintenance Due Date Last Done Comments COVID-19 vaccine series ( season) 2023 08/13/2023, 01/31/2022, 07/30/2021, Additional history exists Influenza for age 65+ 12/14/2023 05/14/2023 , 01/31/2022, 12/27/2020, Additional history exists BMI (ht and wt on same day) for age 18+ 02/20/2024 02/19/2023, 08/27/2022, 07/29/2022, Additional history exists Medicare Wellness for age 65+ 02/20/2024, 10/05/2021, 09/27/2020, Additional history exists Depression screening for age 12+ 02/21/2024 02/20/2023, 02/20/2023, 02/19/2023, Additional history exists Tetanus booster 05/14/2033 05/14/2023, 04/15, 07/19/2002, Additional history exists Zoster (shingles) series for age 50+ Completed 08/28/2018, 07/31/2018 DEXA/DXA scan for age 65+ Completed 10/12/2020, 08/2015 Tdap Completed 05/14/2023, 05/04/2012 Pneumococcal series for age 65+ Completed 08/13/2023, 07/22/2014 (Completed outside of [facility]), 07/22/2014, Additional history exists RSV vaccine for adults or Completed 08/13/2023 Procedures Procedure Name Priority Date/Time Associated Diagnosis Comments XR MAMMO OLIVA BILAT SCREEN Routine 12/03/2023 11:31 AM CDT Visit for screening mammogram XR DXA BONE DENSITY 2 SITES AXIAL Routine 10/12/2020 2:31 PM CDT Post-menopausal from Last 3 Months or Most Recently Relevant to Health Maintenance Results * XR MAMMO OLIVA BILAT SCREEN (12/03/2023 11:31 AM CDT) Anatomical Region Laterality Modality BREASTS, Breast Left, Breast Right Bilateral Mammography Impressions 12/03/2023 3:31 PM CDT ??There is no radiographic evidence for malignancy. ??Recommend annual mammograms. MAMMOGRAM ASSESSMENT: ??ACR 1 Negative PATIENTS: You will also receive a letter with your examination results in an easy to read format. ??If you have questions about your results, please contact your referring provider. Narrative 12/03/2023 3:31 PM CDT For Patients: As a result of the Cures Act, medical imaging exams and procedure reports are released immediately into your electronic medical record. You may view this report before your referring provider. If you have questions, please contact your health care provider. XR MAMMO OLIVA BILAT SCREEN [[id number]] CLINICAL HISTORY: ??This is an asymptomatic 78 y.o. patient. INDICATION FOR EXAM: Mammogram Screening. TECHNIQUE: CC & MLO views were obtained. ??This study was evaluated with the assistance of Computer-Aided Detection. Breast Tomosynthesis was used in interpretation. COMPARISON FILM: Yes 10/07/22 [facility] 10/05/21 [facility] FINDINGS: ??There are scattered areas of fibroglandular density. There are no dominant masses, suspicious micro calcifications or areas of architectural distortion. Martinez Sal MD MAMMO * (ABNORMAL) XR DXA BONE DENSITY 2 SITES AXIAL (10/12/2020 2:31 PM CDT) Anatomical Region Laterality Modality Spine, HIPS, HIPL, HIPR Other Impressions 10/20/2020 4:53 PM CDT Osteopenia. RECOMMENDATIONS: The National Osteoporosis Foundation recommends pharmacologic treatment for patients with T-scores of -2.5 or less, patients with prior history of fragility fractures, or patients with 10-year probability of greater than 3% at hips or greater than 20% of suffering major osteoporotic fractures. Recommend continued optimization of calcium and vitamin D intake through dietary means and/or supplementation and regular exercise. Repeat scan recommended in 3-5 years. Sally Trotter PA-C Narrative 10/20/2020 4:53 PM CDT XR DXA Bone Mineral Density (BMD) EXAM LOCATION: [address] [address] PATIENT NAME: Katy Mukherjee DATE OF : 1945 EXAM DATE: 10/12/2020 REQUESTING PROVIDER: Martinez Sal MD GENDER AT : female HEIGHT: 5' 2.84 (09/27/2020) WEIGHT: ??266 lb 9.6 oz (09/27/2020) MENOPAUSAL STATUS: Postmenopausal RACE/ETHNICITY: White RISK FACTORS: Menopause < Age 40 and Smoking (prior) CURRENT MEDICATION FOR BONE LOSS: NONE INDICATION: Follow-up of existing osteopenia COMPARISON DATE(S): None available-- last scan at [facility] DXA scans are compared to prior studies for a patient only when the two (or more) studies were performed on the same scanner. It is not possible to compare data generated on one scanner to data from another because there are not standards in DXA equipment. This applies even if the two scanners are made by the same oil driller. PROCEDURE: Dual-energy x-ray absorptiometry performed with routine technique. Reporting is completed in the form of a T-score. The T-score represents the standard deviation from peak bone mass based on young healthy adult. A Z-score is used for diagnosis in premenopausal women, and for men under the age of 50. FINDINGS: RESULT LUMBAR SPINE L1 - L4 BMD: 1.093 g/cm2 T-Score: - 0.8 Z-Score: - 0.2 Comparison to most recent scan : ??None Comparison to baseline scan : ??None RESULT FEMORAL NECK Left Total Femoral Neck BMD: 0.875 g/cm2 T-Score: - 1.2 Z-Score: + 0.1 Comparison to most recent scan : ??None Comparison to baseline scan : ??None RESULT TOTAL HIP Bilateral Total Hip BMD: 0.912 g/cm2 T-Score: - 0.8 Z-Score: + 0.3 Comparison to most recent scan : ??None Comparison to baseline scan : ??None WHO criteria: Normal: T-score at or above -1 SD Osteopenia: T-score between -1.1 and -2.4 SD Osteoporosis: T-score at or below -2.5 SD FRAX RISK CALCULATION (USED FOR OSTEOPENIA ONLY): 10-year probability of major osteoporotic fracture: 7.7%. 10-year probability of hip fracture: 1.2%. Martinez Sal MD DEXA from Last 3 Months or Most Recently Relevant to Health Maintenance Advance Directives * Full Code (Latest Code Status on File) Date Activated Date Inactivated Comments 10/02/2014 11:56 AM 10/04/2014 11:47 AM * Full Code Date Activated Date Inactivated Comments 10/02/2014 3:26 AM 10/02/2014 11:56 AM * Full Code Date Activated Date Inactivated Comments 09/28/2014 12:09 AM 09/30/2014 1:33 PM Care Teams Utilities Estimator And Drafter Relationship Specialty Start Date End Date Martinez Sal MD [address] [place] [address] PCP - General Family Practice 10/06/14
[2024-01-01] MEDS: dilTIAZem 5 MG/ML inj 15 MG IVP (16:06)
[2024-01-01] MEDS: dilTIAZem 120 MG CAP.ER.24H PO (16:53)
[2024-01-01 17:05] LABS: Magnesium* 1.7 mg/dL (1.5-2.6)
[2024-01-01 17:10] LABS: Troponin, Point-of-Care* 0.02 ng/ml (0.01-0.04)
== END 2024-01-01 17:35 | disposition home or self-care (01) ==
PROVIDERS: Emergency Provider Emergency Medicine; PCP Family Medicine
DX: I48.91 Unspecified atrial fibrillation (principal)
CPT/HCPCS: 36415; 80048; 83735; 84443; 84484; 85025; 93005; 94761; 99284; 99285; A9270; J7030

== ENCOUNTER 2024-10-22 09:26 | Emergency (ER) | payer MEDICARE, SELFPAY ==
--- OUTSIDE RECORDS SUMMARY | 2024-09-08 12:45 | XMS_ITS | Encounter Summary ---
Author Organization [facility] Address [address] [place] [id number] Care Team Providers Care Geological Sample Tester Name Role Phone Elsewhere, Pcp Primary Care Provider Unavailabl e Reason for Visit * Reason Onset Date Comments Pre-visit Intake 09/08/2024 Encounter Details Date Type Department Care Team (Latest Contact Info) Description 09/08/2024 12:45 PM CDT Clinical Communication Virtual Review in [place], [place] [address] [place] [address] Pre-visit Intake Social History Tobacco Use Types Packs/Day Years Used Date Smoking Tobacco: Former Cigarettes 0.3 20 1 - 05/22/1981 Passive Smoke Exposure: Past Smokeless Tobacco: Never Tobacco Cessation:Counseling Given: Not Answered Alcohol Use Standard Drinks/Week Comments Yes 2 (1 standard drink = 0.6 oz pur e alcohol) [facility] Utilities Answer Date Recorded In the past 12 months has e [employer], gas, oil, or water [employer] threatened to shut off services in your [...] by your partner or ex-partner? No 03/19/2022 Hunger Vital Sign Answer Date Recorded [...] PHQ-9 Total Score (max 27) 3 03/01 Housing Stability Answer Date Recorded What is your living situation today? I have a [facility] place to live 12/22/2023 Education Answer Date Recorded What is the highest level of school you have completed or the highest degree you have received? Bachelor's degree (e.g., BA, AB, BS) 10/12/2018 Comments No Sex and Gender Information Value Date Recorded Sex Assigned at Female 12/31/2020 10:01 AM CDT Legal Sex Female 4:55 AM FLAG SIGNALER Gender Identity Female 12/16/2017 12:50 PM CDT Sexual Orientation Straight 12/16/2017 12 :50 PM CDT documented as of this encounter Plan of Treatment Upcoming Encounters Date Type Department Care Team (Latest Contact Info) Description 11/26/2024 8:45 AM CDT Clinical Communication Virtual Review in [place], [place] [address] [place] [address] 11/29/2024 1:00 PM CDT Ancillary Procedure Department of Ophthalmology in [address] [address] Ariana Mera M.D. 11/29/2024 1:30 PM CDT Comprehensive Visit Department of Ophthalmology in [place], [place] [address] [place] [address] [place] [phone] Benoit Nails M.D. [address] [place] [address] documented as of this encounter Visit Diagnoses Not on filedocumented in this encounter Additional Health Concerns Assessment Noted Time PHQ-9 Depression Total Score: 3 03/01/20 22 7:00 PM FLAG SIGNALER documented as of this encounter Care Teams Geological Sample Tester Relationship Specialty Start Date End Date Elsewhere, Pcp PCP - General Internal Medicine 01/21/22 documented as of this encounter
--- OUTSIDE RECORDS SUMMARY | 2024-09-13 16:20 | XMS_ITS | Encounter Summary ---
Author Organization [facility] Address [address] [place] [address] Care Team Providers Care Pump Runner Name Role Phone Elsewhere, Pcp Primary Care Provider Unavailabl e Encounter Details Date Type Department Care Team (Late st Contact Info) Description 09/13/2024 4:20 PM CDT Ancillary Procedure Department of Dermatology Social History Tobacco Use Types Packs/Day Years Used Date Smoking Tobacco: Former Cigarettes 0.3 20 1 - 05/22/1981 Passive Smoke Exposure: Past Smokeless Tobacco: Never Alcohol Use Standard Drinks/Week Comments Yes 2 (1 standard drink = 0.6 oz pur e alcohol) [facility] Utilities Answer Date Recorded In the past 12 months has e electric, gas, oil, or water [employer] threatened to shut off services in your [...] your living situation today? I have a [facility] place to live 12/22/2023 Education Answer Date Recorded What is the highest level of school you have completed or the highest degree you have received? Bachelor's degree (e.g., BA, AB, BS) 10/12/2018 Comments No Sex and Gender Information Value Date Recorded Sex Assigned at Female 12/31/2020 10:01 AM CDT Legal Sex Female 4:55 AM ATHLETIC FIELD CUSTODIAN Gender Identity Female 12/16/2017 12:50 PM CDT Sexual Orientation Straight 12/16/2017 12 :50 PM CDT documented as of this encounter Plan of Treatment Upcoming Encounters Date Type Department Care Team (Latest Contact Info) Description 11/26/2024 8:45 AM CDT Clinical Communication Virtual Review in [place], [place] [address] [place] [address] 11/29/2024 1:00 PM CDT Ancillary Procedure Department of Ophthalmology in [place], [place] [address] [place] [phone] Ariana Mera M.D. 11/29/2024 1:30 PM CDT Comprehensive Visit Department of Ophthalmology in [place], [place] [address] [place] [phone] Benoit Nails M.D. [address] [place] [phone] documented as of this encounter Procedures Procedure Name Priority Date/Time Associated Diagnosis Comments DERMATOLOGY IMAGE EXAM Routine 09/13/2024 4:20 PM CDT documented in this encounter Results * eye, left lower eyelid margin 113-Dermatology Image Exam (09/13/2024 4:20 PM CDT) 09/13/2024 4:17 PM CDT Narrative [facility] - 09/13/2024 4:20 PM CDT This order has been created and auto-finalized to support the import of images acquired without order. The clinical documentation to support these images can be found on the encounter that produced images. us Provider Not In System IMG NON RAD IMAGING PROCE DURES Final Result [facility] NA documented in this encounter Visit Diagnoses Not on filedocumented in this encounter Additional Health Concerns Assessment Noted Time PHQ-9 Depression Total Score: 3 03/01/20 22 7:00 PM ATHLETIC FIELD CUSTODIAN documented as of this encounter Care Teams Pump Runner Relationship Specialty Start Date End Date Elsewhere, Pcp PCP - General Internal Medicine 01/21/22 documented as of this encounter
--- OUTSIDE RECORDS SUMMARY | 2024-09-13 16:20 | XMS_ITS | Encounter Summary ---
Author Organization [facility] Address [address] [place] [address] Care Team Providers Care Cardiac Rehab Nurse Name Role Phone Elsewhere, Pcp Primary Care Provider Unavailabl e Reason for Referral * Outpatient (Routine) - Authorized Specialty Diagnoses / Procedures Referred By Rica bullock Referred To Contact Ophthalmology Diagnoses Tumor Skin Uncertain Behavior Ariana Mera M.D. [facility] Referral ID Status Reason Start Date Expiration Date V isits Requested Visits Authorized [id number] Authorized 09/13/2024 03/15/2026 1 1 * Medication Prior Authorization - Closed Specialty Diagnoses / Procedures Referred By Rica bullock Referred To Contact Diagnoses Neuralgia Post Herpetic Ariana Mera M.D. Referral ID Status Reason Start Date Expiration Date Visits Re quested Visits Authorized [id number] Closed 1 1 Reason for Visit * Appointment Request (Routine) - Closed Specialty Diagnoses / Procedures Referred By Rica bullock Referred To Contact Dermatology Diagnoses Lesion Skin Referral ID Status Reason Start Date Expiration Date Visits Re quested Visits Authorized [id number] Closed 08/26/2024 11/26/2025 1 1 Encounter Details Date Type Department Care Team (Latest Contact Info) Description 09/13/2024 4:20 PM CDT Comprehensive Visit Department of Dermatology in [address] [place] [address] Ariana Mera M.D. Neuralgia Post Herpetic (Primary Dx); Tumor Skin Uncertain Behavior; Keratosis Actinic; Dermatoheliosis; Keratosis Seborrheic Social History Tobacco Use Types Packs/Day Years Used Date Smoking Tobacco: Former Cigarettes 0.3 20 1 - 05/22/1981 Passive Smoke Exposure: Past Smokeless Tobacco: Never Alcohol Use Standard Drinks/Week Comments Yes 2 (1 standard drink = 0.6 oz pur e alcohol) [place] Utilities Answer Date Recorded In the past [...] AM CDT Legal Sex Female 4:55 AM BIT TAPPER Gender Identity Female 12/16/2017 12:50 PM CDT Sexual Orientation Straight 12/16/2017 12 :50 PM CDT documented as of this encounter Consult Notes * Ariana Mera M.D. - 09/13/2024 4:20 PM CDT DATE OF VISIT: 09/13/2024 SUBJECTIVE CHIEF COMPLAINT / REASON FOR VISIT The patient verbally consented to an audio recording of their visit to assist with the completion of documentation. History of Present Illness Mrs. 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 She has a sore spot on her forehead, located above a previous surgical site. Despite trying varioushome remedies, the soreness persists. The spot has not changed in shape or appearance and is tenderto the touch. She recalls having shingles in the past in the same area but cannot remember if the tenderness started then. There is a spot on her right medial cheek, which she believes is irritated by her glasses. No significant changes have been noticed in this area. A brown spot is noted on her left lower eyelid margin. She is unsure if it is new but acknowledges that it might be. She experiences persistently itchy skin on her upper arms and uses CeraVe anti- itch cream, which provides some relief. She applies it as needed throughout the day. OBJECTIVE VITAL SIGNS There were no vitals taken for this visit. Physical Exam Physical Exam Physical Exam SKIN: Focused skin examination of the face and bilateral upper arms was performed per patient preference. Harrington skin type 2 with moderate dermatoheliosis. Well-healing scar on the right forehead, approximately 1 cm above the scar patient reports focal tenderness without any associated cutaneous changes but rather background solar lentigines. Waxy stuck on appearing skin colored papule just superior to the left eyebrow. Brown macule involving the mid lower eyelid margin. [place] gritty maculeinvolving the right medial cheek approximating the nasal facial sulcus consistent with actinic keratoses. Numerous scattered feathery viveros to brown macules and waxy stuck on appearing brown papules consistent with solar lentigines and seborrheic keratoses respectively. ASSESSMENT / PLAN #1 Focal tender spots suspicious for post herpetic neuralgia Patient presents for evaluation of focal tender area on the right forehead with history of biopsy-proven herpes zoster infection 12/2023 suggestive of post herpetic neuralgia. Patient was reassured no primary skin changes to suggest skin cancer or skin cancer recurrence in the area that she is pointing to is not contiguous with the scar on her forehead. At this time recommend supportive management with compounded amitriptyline 2%-gabapentin 5%-ketamine 5% as needed for tenderness of to 3 times daily. We reviewed the risks and benefits of this medication including need to minimize surface areaof application to reduce risk of systemic absorption. Patient was in agreement with this plan. #2 Tumor Skin Uncertain Behavior Exam notable for pigmented lesion involving the left lower eyelid margin. Patient is unaware how long lesion has been present. Recommend biopsy with our colleagues in Oculoplastics to evaluate for melanoma. Baseline photographs was obtained today. Patient was in agreement with this plan. #3 Keratosis Actinic History and physical exam are consistent with single actinic keratoses involving the right medial cheek approximating the nasal facial sulcus. Lesion was treated in the standard fashion. Patient tolerated the procedure well. Aftercare instructions were provided in written forearm. #4 Dermatoheliosis Reviewed and provided literature regarding the common signs of skin cancer and importance of practicing diligent photoprotective measures. Recommend that she undergo full-body skin exam with appropriately trained clinician out once a year. #5 Keratosis Seborrheic Patient reassured of benign nature of the skin lesion. No treatment is required we would recommend clinical observation. documented in this encounter Plan of Treatment Upcoming Encounters Date Type Department Care Team (Latest Contact Info) Description 11/26/2024 8:45 AM CDT Clinical Communication Virtual Review in [place], [place] [address] [place] [address] 11/29/2024 1:00 PM CDT Ancillary Procedure Department of Ophthalmology in [place], [place] [address] [place] [phone] Ariana Mera M.D. 11/29/2024 1:30 PM CDT Comprehensive Visit Department of Ophthalmology in [place], [place] [address] [place] [place] [phone] Benoit Nails M.D. [address] [place] [phone] Scheduled Referrals Name Type Priority Associated Diagnoses Order Schedule Ophthalmology - Oculoplastic and orbital surgery consult (clinic) Outpatient Referral Routine Tumor Skin Uncertain Behavior Expected: 09/13/2024, Expires: 12/14/2025 documented as of this encounter Visit Diagnoses Diagnosis Neuralgia Post Herpetic- Primary Tumor Skin Uncertain Behavior Keratosis Actinic Dermatoheliosis Keratosis Seborrheic documented in this encounter Additional Health Concerns Assessment Noted Time PHQ-9 Depression Total Score: 3 03/01/20 22 7:00 PM BIT TAPPER documented as of this encounter Care Teams Cardiac Rehab Nurse Relationship Specialty Start Date End Date Elsewhere, Pcp PCP - General Internal Medicine 01/21/22 documented as of this encounter
--- OUTSIDE RECORDS SUMMARY | 2024-10-22 09:29 | XMS_ITS | Encounter Summary ---
Author Organization [facility] Address [address] [place] [address] Care Team Providers Care Customer Solutions Coordinator Name Role Phone Elsewhere, Pcp Primary Care Provider Unavailabl e Encounter Details Date Type Department Care Team (Late st Contact Info) Description 04/02/2005 Historical Ophthalmology RST OPH Ambrocio Blancas O.D. [address] [place] [phone] Social History Tobacco Use Types Packs/Day Years Used Date Smoking Tobacco: Never Assessed Comments Unknown Sex and Gender Information Value Date Recorded Sex Assigned at Female 12/31/2020 10:01 AM CDT Legal Sex Female 4:55 AM EXPLOSIVES WORKER Gender Identity Female 12/16/2017 12:50 PM CDT Sexual Orientation Straight 12/16/2017 12 :50 PM CDT documented as of this encounter Progress Notes * Ambrocio Blancas O.D. - 04/02/2005 12:00 AM CST Eye General HISTORY OF PRESENT ILLNESS Patient was seen at [facility] on 03/23/05 for early hordeolum [...] began a couple of weeks ago and result ed in her visit to the emergency room. She is using hot packs on both eyes 3-4 times daily. She diduse some [id number] drops for styes last week, but no longer. She was also putting Vaseline on the eyes but was told to discontinue by her primary doctor. Intermittent blurred vision. Denies any diplopia. IMPRESSION / REPORT / PLAN #1 Right upper lid hordeolum, resolving Continue with warm compresses; discussed maintenance lid hygiene #2 Refractive error (hyperopic astigmatism, presbyopia). Plan: spectacle prescription (Refraction 1) given. DIAGNOSIS #1 Right upper lid hordeolum, resolving #2 Refractive error (hyperopic astigmatism, presbyopia). CDM Reports - [employer] Id: [id number] Status: Fnl documented in this encounter Plan of Treatment Upcoming Encounters Date Type Department Care Team (Latest Contact Info) Description 11/26/2024 8:45 AM CDT Clinical Communication Virtual Review in [address] [phone] 11/29/2024 1:00 PM CDT Ancillary Procedure Department of Ophthalmology in [address] [phone] Ariana Mera M.D. 11/29/2024 1:30 PM CDT Comprehensive Visit Department of Ophthalmology in [address] [phone] Benoit Nails M.D. [address] [place] [phone] documented as of this encounter Visit Diagnoses Not on filedocumented in this encounter Additional Health Concerns Infection Onset Date Last Indicated Resolved Time COVID19 Pending 02/29/2020 02/29/2020 02/29/2020 7 :08 PM EXPLOSIVES WORKER documented as of this encounter Care Teams Customer Solutions Coordinator Relationship Specialty Start Date End Date Elsewhere, Pcp PCP - General Internal Medicine 01/21/22 documented as of this encounter
--- OUTSIDE RECORDS SUMMARY | 2024-10-22 09:29 | XMS_ITS | Encounter Summary ---
Author Organization [facility] Address [address] [place] [address] Care Team Providers Care Fish Hatchery Supervisor Name Role Phone Elsewhere, Pcp Primary Care Provider Unavailabl e Encounter Details Date Type Department Care Team (Late st Contact Info) Description 03/11/2006 Historical Ophthalmology RST OPH Fabián Castellano M.D. [address] [place] [phone] Social History Tobacco Use Types Packs/Day Years Used Date Smoking Tobacco: Never Assessed Comments Unknown Sex and Gender Information Value Date Recorded Sex Assigned at Female 12/31/2020 10:01 AM CDT Legal Sex Female 4:55 AM LACQUER COATER Gender Identity Female 12/16/2017 12:50 PM CDT [...] Drusen LE CDM Reports - [employer] Id: [id number] Status: Fnl documented in this encounter Plan of Treatment Upcoming Encounters Date Type Department Care Team (Latest Contact Info) Description 11/26/2024 8:45 AM CDT Clinical Communication Virtual Review in [place], [place] 200 [place] [address] 11/29/2024 1:00 PM CDT Ancillary Procedure Department of Ophthalmology in [address] [phone] Ariana Mera M.D. 11/29/2024 1:30 PM CDT Comprehensive Visit Department of Ophthalmology in [address] [phone] Benoit Nails M.D. [address] [place] [phone] documented as of this encounter Visit Diagnoses Not on filedocumented in this encounter Additional Health Concerns Infection Onset Date Last Indicated Resolved Time COVID19 Pending 02/29/2020 02/29/2020 02/29/2020 7 :08 PM LACQUER COATER documented as of this encounter Care Teams Fish Hatchery Supervisor Relationship Specialty Start Date End Date Elsewhere, Pcp PCP - General Internal Medicine 01/21/22 documented as of this encounter
--- OUTSIDE RECORDS SUMMARY | 2024-10-22 09:29 | XMS_ITS | Encounter Summary ---
Author Organization [facility] Address [address] [place] [address] Care Team Providers Care Space And Missile Defense Operations Name Role Phone Elsewhere, Pcp Primary Care Provider Unavailabl e Encounter Details Date Type Department Care Team (Late st Contact Info) Description 08/11/2024 CPAP Download Remote Patient Monitoring [facility] [address] [place] [address] [facility], Provider, Social History Tobacco Use Types Packs/Day Years Used Date Smoking Tobacco: Former Cigarettes 0.3 20 1 - 05/22/1981 Passive Smoke Exposure: Past Smokeless Tobacco: Never Alcohol Use Standard Drinks/Week Comments Yes 2 (1 standard drink = 0.6 oz pur e alcohol) [facility] Utilities Answer Date Recorded In the past 12 months has [facility] [employer], gas, oil, or water [employer] threatened to shut off services in your [...] your living situation today? I have a [facility] place to live 12/22/2023 Education Answer Date Recorded What is the highest level of school you have completed or the highest degree you have received? Bachelor's degree (e.g., BA, AB, BS) 10/12/2018 Comments No Sex and Gender Information Value Date Recorded Sex Assigned at Female 12/31/2020 10:01 AM CDT Legal Sex Female 4:55 AM NURSING ATTENDANT Gender Identity Female 12/16/2017 12:50 PM CDT Sexual Orientation Straight 12/16/2017 12 :50 PM CDT documented as of this encounter Plan of Treatment Upcoming Encounters Date Type Department Care Team (Latest Contact Info) Description 11/26/2024 8:45 AM CDT Clinical Communication Virtual Review in [place], [place] 200 [place] [address] 11/29/2024 1:00 PM CDT Ancillary Procedure Department of Ophthalmology in [address] [phone] Ariana Mera M.D. 11/29/2024 1:30 PM CDT Comprehensive Visit Department of Ophthalmology in [address] [phone] Benoit Nails M.D. [address] [place] [phone] documented as of this encounter Visit Diagnoses Not on filedocumented in this encounter Additional Health Concerns Assessment Noted Time PHQ-9 Depression Total Score: 3 03/01/20 22 7:00 PM NURSING ATTENDANT documented as of this encounter Care Teams Space And Missile Defense Operations Relationship Specialty Start Date End Date Elsewhere, Pcp PCP - General Internal Medicine 01/21/22 documented as of this encounter
--- OUTSIDE RECORDS SUMMARY | 2024-10-22 09:29 | XMS_ITS | Encounter Summary ---
Author Organization [facility] Address [address] [place] [address] Care Team Providers Care Shank Inspector Name Role Phone Elsewhere, Pcp Primary Care Provider Unavailabl e Reason for Visit * Reason Onset Date Comments Rx Denial 09/22/2024 [facility] Lipoderm Ba se Cream, Propylene Glycol liquid, Gabapentin Powder, Ketamine hcl powder, Amitriptyline hcl powder Rx Appeal Denial 09/22/2024 amitriptyline h cl, gabapentin, ketamine hcl, propylene glycol , pcca lipoderm base Encounter Details Date Type Department Care Team (Latest Contact Info) Description 09/22/2024 Clinical Communication Department of Dermatology in [place], [place] [address] [place] [address] Ariana Mera M.D. Rx Denial (Pcca Lipoderm Base Cream, Propylene Glycol liquid, Gabapentin Powder, Ketamine hcl powder, Amitriptyline hcl powder); Rx Appeal Denial (amitriptyline hcl, gabapentin, ketamine hcl, propylene glycol , pcca lipoderm base) Social History Tobacco Use Types Packs/Day Years Used Date Smoking Tobacco: Former Cigarettes 0.3 20 1 - 05/22/1981 Passive Smoke Exposure: Past Smokeless Tobacco: Never Alcohol Use Standard Drinks/Week Comments Yes 2 (1 standard drink = 0.6 oz pur e alcohol) [facility] Utilities Answer Date Recorded In the past 12 months has [employer], gas, oil, or water [employer] threatened to shut off services in your [...] your living situation today? I have a [facility] place to live 12/22/2023 Education Answer Date Recorded What is the highest level of school you have completed or the highest degree you have received? Bachelor's degree (e.g., BA, AB, BS) 10/12/2018 Comments No Sex and Gender Information Value Date Recorded Sex Assigned at Female 12/31/2020 10:01 AM CDT Legal Sex Female 4:55 AM OIL DEVELOPER Gender Identity Female 12/16/2017 12:50 PM CDT Sexual Orientation Straight 12/16/2017 12 :50 PM CDT documented as of this encounter Plan of Treatment Upcoming Encounters Date Type Department Care Team (Latest Contact Info) Description 11/26/2024 8:45 AM CDT Clinical Communication Virtual Review in [place], [place] [address] [place] [address] 11/29/2024 1:00 PM CDT Ancillary Procedure Department of Ophthalmology in [place], [place] [address] [place] [phone] Ariana Mera M.D. 11/29/2024 1:30 PM CDT Comprehensive Visit Department of Ophthalmology in [place], [place] [address] [place] [phone] Benoit Nails M.D. [address] [place] [phone] documented as of this encounter Visit Diagnoses Not on filedocumented in this encounter Additional Health Concerns Assessment Noted Time PHQ-9 Depression Total Score: 3 03/01/20 22 7:00 PM OIL DEVELOPER documented as of this encounter Care Teams Shank Inspector Relationship Specialty Start Date End Date Elsewhere, Pcp PCP - General Internal Medicine 01/21/22 documented as of this encounter
--- OUTSIDE RECORDS SUMMARY | 2024-10-22 09:29 | XMS_ITS | Clinical Summary ---
Author Organization [facility] Address [address] [place] [address] Care Team Providers Care Tin Flopper Name Role Phone Martinez Sal MD Primary Care Provider Allergies Active Allergy Reactions Criticality Noted Date Comments Atorvastatin Other - Describe In Comment Field 10/25/2014 [place] poorly Cephalexin Other - Describe In Comment Field 09/27/2014 A little tightness in throat. Takes Benadryl Ciprofloxacin Other - Describe In Comment Field 05/17/2019 throat tightness Clindamycin *Unknown 09/27/2014 Fish Containing Products Hives 09/27/2014 [place]ia Ibuprofen *Unknown 09/27/2014 But tolerates aspirin Tirzepatide Other - Describe In Comment Field 07/19/2024 Diarrhea and 'gagging' even on 2.5 Sulfa (Sulfonamide Antibiotics) *Unknown 12/02/2014 Sulfamethoxazole-Trimeth oprim *Unknown 09/27/2014 Medications meclizine (ANTIVERT) 25 mg tablet Take 25 mg by mouth 3 times daily if needed for Vertigo. Active cholecalciferol (VITAMIN D3) 2,000 unit capsule Take 1 capsule by mouth once daily. 12/11/19 17 Active famotidine (PEPCID) 10 mg tablet Take 2 Tabs by mouth once daily. 03/24/20 17 Active medication order composer 125 mg vitamin C, reported per PT 0 10/30/19 22 Active nitroglycerin (Nitrostat) 0.4 mg sublingual tabletIndications: Coronary artery disease involving [place] coronary artery without angina pectoris, unspecified whether [place] or transplanted heart For chest pain.PLACE 1 TABLET UNDER TONGUE EVERY 5 MINUTES NEEDED FOR CHEST PAIN 25 Tablet 12/11/19 22 Active nystatin powder (MYCOSTATIN) powderIndications: Skin yeast infection Apply 1 Strip topically to affected area(s) three times daily. 60 g 12/11/19 22 Active ferrous sulfate, 65 mg elemental, (Iron, Ferrous Sulfate,) tablet Take 1 Tablet (325 mg) by mouth once daily with a meal. 0 01/09/20 22 Active Accu-Chek Guide Me Glucose Mtr CHECK BLOOD SUGAR TWICE DAILY 04/03/20 22 Active metoprolol tartrate (LOPRESSOR) 25 mg tabletIndications: Atrial fibrillation with RVR (HC) Take 1 Tablet (25 mg) by mouth two times daily. As needed atrial fibrillation 14 Tablet 04/09/20 Active meclizine chewable (ANTIVERT) 25 mg tablet three times a day 12/28/19 Active clotrimazole (LOTRIMIN) 1 % creamIndications:V aginal yeast infection Apply topically to affected area(s) two times daily. 45 g 2 08/07/19 23 Active ketoconazole 2% topical (NIZORAL) cream Apply 1 Application topically to affected area(s). 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 90 Tablet 3 01/21/20 24 Active furosemide (LASIX) 20 mg tabletIndications: Essential hypertension Take 1 Tablet (20 mg) by mouth once daily. 90 Tablet 3 01/21/20 24 Active levothyroxine (SYNTHROID) 150 mcg tabletIndications: Other specified hypothyroidism Take 1 Tablet (150 mcg) by mouth once daily. 90 Tablet 3 01/21/20 24 Active vit-min eye [id number] mg (PreserVision AREDS 2 Plus) capsule Take 1 Capsule by mouth two times daily. 02/10/20 24 Active magnesium oxide (MAG-OX 400) 400 mg tabletIndications: Low magnesium level TAKE 1 TABLET(400 MG) BY MOUTH TWICE DAILY 180 Tablet 3 03/27/20 24 Active Eliquis 5 mg tabletIndications: Atrial fibrillation with RVR (HC) Take 1 Tablet (5 mg) by mouth two times daily. 180 Tablet 2 03/27/20 24 Active Accu-Chek Softclix LancetsIndications :Type 2 diabetes mellitus without complication, without long-term current use of insulin (HC) USE TO TEST TWICE DAILY 200 Each 3 06/29/19 25 Active metFORMIN 500 mg Extended-Release tabletIndications: Type 2 diabetes mellitus without complication, without long-term current use of insulin (HC) Take 4 Tablets (2,000 mg) by mouth once daily with evening meal. 360 Tablet 1 07/20/19 25 Active rosuvastatin 10 mg tabletIndications: Hyperlipidemia, unspecified hyperlipidemia type Take 1 Tablet (10 mg) by mouth once daily with evening meal. 90 Tablet 1 07/20/19 25 Active Active Problems Problem Noted Date Diagnosed Date [...] valve stenosis. s/p v alve replacement 09/19/2014 [place] 06/17/2011 10/07/2021 Shortness of breath 08/07/2010 09/28/19 21 Hypertrophic cardiomyopathy 07/04/2008 09/27/2020 Trochanteric bursitis 07/04/20052016 Obstructive sleep apnea syndrome 07/23/2004 10/07/2021 Osteoarthritis 12/10/2016 BMI 45.0-49.9, adult 023 Overview (09/28/2014): BMI 48 Encounters Date Type Department Care Team Description 10/20/2024 Nurse Triage [facility] [address] [place] [address] Martinez Sal MD Chest Pain 10/13/2024 Telephone [facility] [address] [place] [address] Martinez Sal MD Questions from Last 3 Months Immunizations Immunization Administration Dates Next Due Amb Influenza, Inactivated A IIV4 (Age 65+ Years) Preserv Free 01/27/2020 COVID-19 vaccine (Moderna 100mcg/0.5mL) PF, MDV 07/11/2020,06/13/2020 COVID-19 vaccine (Smart Sparrow-Bio NTech 30mcg/0.3mL) 12YO+ BIVALENT PF, MDV 01/31/2022 COVID-19 vaccine (Smart Sparrow-Bio NTech 30mcg/0.3mL) 12YO+ SOLE-SUCROSE PF, MDV 07/30/2021 Influenza, High-dose Inactivated 016,12/29/2014,01/14/2014,02/04 Influenza, IIV3 (Age >=3 years) 04/28/2012,03/24,04/01/2005 Influenza, Inactivated AIIV4 (Age 65+ Years) Preserv Free 05/14/2023,01/31/2022,12/27/2020 Influenza, Inactivated IIV3 (Age 65+ Years) Preserv Free 01/21/2024,01/01/2019,01/19/2018,12/10 Pneumococcal Conj 20-valent (Prevnar 20) 08/13/2023 Pneumococcal [...] Former Cigarettes 0.2 15 1 967 - 1981 Smokeless Tobacco: Never Tobacco Cessation:Counseling Given: No Alcohol Use Standard Drinks/Week Comments Yes 1 (1 standard drink = 0.6 oz pur e alcohol) occ PHQ-2 Answer Date Recorded PHQ-2 TOTAL SCORE 0 02/19/2023 Social Connections Answer Date Recorded Do you often feel lonely or isolated from those around you? 0 09/17/2023 Financial Resource Strain Answer Date R ecorded Difficulty of Paying Living Expenses 3 09/17/2023 Difficulty of Paying Living Expenses Not on file 09/17/2023 Food Insecurity Answer Date Recorded Do you worry your food will run out before you are able to buy more? 1 09/17/2023 Transportation Needs Answer Date Record ed Does lack of transportation keep you from medica l appointments? 1 09/17/2023 Does lack of transportation keep you from work, meetings or getting things that you need? 1 09/17/2023 Housing Stability Answer Date Recorded What is your housing situation today? 1 09/17/2023 Utilities Answer Date Recorded Do you have trouble paying f or utilities (for example, heat, electricity, water, phone)? 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 Not on file Not on file Not o n file Obstetrics History Last Filed Vital Signs Vital Sign Reading Time Taken Comments Blood Pressure 137/84 07/19/2024 10:32 AM CDT Pulse 83 07/19/2024 10:32 AM CDT Temperature 36.7 C (98 F) 02/19/2023 3:09 PM OSS ARCHITECT Respiratory Rate 18 08/27/2022 9:52 AM CDT Oxygen Saturation 96% 07/19/2024 10:32 AM CDT Inhaled Oxygen Concentration - - Weight 98.6 kg (217 lb 6.4 oz) 07/19/2024 10:32 AM CDT Height 158 cm (5' 2.21) 02/19/2023 3:09 PM OSS ARCHITECT Body Mass Index 39.5 02/19/2023 3:09 PM OSS ARCHITECT Plan of Treatment Upcoming Encounters Date Type Department Care Team (Late st Contact Info) Description 10/26/2024 3:45 PM CDT Office Visit [facility] [address] [place] [address] Martinez Sal MD [address] [place] [address] 01/17/2025 9:00 AM CDT Orders Only [facility] [address] [place] [address] [place], [place] 01/19/2025 10:30 AM CDT Office Visit [facility] [address] [place] [address] Martinez Sal MD [address] [place] [address] Health Maintenance Due Date Last Done Comments COVID-19 vaccine series ( season) 2023 08/13/2023, 01/31/2022, 07/30/2021, Additional history exists BMI (ht and wt on same day) for age 18+ 02/20/2024 02/19/2023, 08/27/2022, 07/29/2022, Additional history exists Medicare Wellness for age 65+ 02/20/2024 02/19/2023, 10/05/2021, 09/27/2020, Additional history exists Depression screening for age 12+ 02/21/2024 02/20/2023, 02/20/2023, 02/19/2023, Additional history exists Influenza Vaccine (#1) 2024 , 05/14/2023, 01/31/2022, Additional history exists Tetanus booster 05/14/2033 05/14/2023, 04/15, 07/19/2002, Additional history exists Zoster (shingles) series for age 50+ Completed 08/28/2018, 07/31/2018 DEXA/DXA scan for age 65+ Completed 10/12/2020, 08/2015 Pneumococcal series for age 50+ Completed 08/13/2023, 07/22/2014 (Completed outside of [facility]), 07/22/2014, Additional history exists RSV vaccine for adults or Completed 08/13/2023 Hepatitis B series for 19+ Aged Out N o longer eligible based on patient's age to complete this topic Procedures Procedure Name Priority Date/Time Associated Diagnosis Comments XR DXA BONE DENSITY 2 SITES AXIAL Routine 10/12/2020 2:31 PM CDT Post-menopausal from Last 3 Months or Most Recently Relevant to Health Maintenance Results * (ABNORMAL) XR DXA BONE DENSITY 2 [...] DXA Bone Mineral Density (BMD) EXAM LOCATION: [address] [address] PATIENT NAME: Katy Mukherjee DATE OF : 1945 EXAM DATE: 10/12/2020 REQUESTING PROVIDER: Martinez Sal MD GENDER AT : female HEIGHT: 5' 2.84 (09/27/2020) WEIGHT: 266 lb 9.6 oz (09/27/2020) MENOPAUSAL STATUS: Postmenopausal RACE/ETHNICITY: White RISK FACTORS: Menopause < Age 40 and Smoking (prior) CURRENT MEDICATION FOR BONE LOSS: NONE INDICATION: Follow-up of existing osteopenia COMPARISON DATE(S): None available-- last scan at [place] DXA scans are compared to prior studies for a patient only when the two (or more) studies were performed on the same scanner. It is not possible to compare data generated on one scanner to data from another because there are not standards in DXA equipment. This applies even if the two scanners are made by the same milling general superintendent. PROCEDURE: Dual-energy x-ray absorptiometry performed with routine [...] 0.2 Comparison to most recent scan : None Comparison to baseline scan : None RESULT FEMORAL NECK Left Total Femoral Neck BMD: 0.875 g/cm2 T-Score: - 1.2 Z-Score: + 0.1 Comparison to most recent scan : None Comparison to baseline scan : None RESULT TOTAL HIP Bilateral Total Hip BMD: 0.912 g/cm2 T-Score: - 0.8 Z-Score: + 0.3 Comparison to most recent scan : None Comparison to baseline scan : None WHO criteria: Normal: T-score at or above -1 SD Osteopenia: T-score between -1.1 and -2.4 SD Osteoporosis: T-score at or below -2.5 SD FRAX RISK CALCULATION (USED FOR OSTEOPENIA ONLY): 10-year probability of major osteoporotic fracture: 7.7%. 10-year probability of hip fracture: 1.2%. Martinez Sal MD DEXA Final Result from Last 3 Months or Most Recently Relevant to Health Maintenance Insurance MEDICARE PART B HB ONLY MEDICARE PART A HB ONLY [facility] MEDICARE PB ONLY MEDICARE PART B HB ONLY AAR PB ONLY Member Subscriber Plan / Payer (Ef fective 2021-Present) Name:Katy Mukherjee Relation to Subscriber:Self Name:Katy Mukherjee Payer ID:Not on file Group ID:[id number] Type:Not on file Address: [facility] [id number] [address] HB ONLY Advance Directives * Full Code (Latest Code Status on File) Date Activated Date Inactivated Comments 10/02/2014 11:56 AM 10/04/2014 11:47 AM * Full Code Date Activated Date Inactivated Comments 10/02/2014 3:26 AM 10/02/2014 11:56 AM * Full Code Date Activated Date Inactivated Comments 09/28/2014 12:09 AM 09/30/2014 1:33 PM Care Teams Tin Flopper Relationship Specialty Start Date End Date Martinez Sal MD [address] [facility] [address] PCP - General Family Practice 10/06/14
--- OUTSIDE RECORDS SUMMARY | 2024-10-22 09:29 | XMS_ITS | Encounter Summary ---
Author Organization [facility] Address [address] [place] [address] Care Team Providers Care Pig Casting Machine Operator Name Role Phone Elsewhere, Pcp Primary Care Provider Unavailabl e Encounter Details Date Type Department Care Team (Late st Contact Info) Description 09/11/2024 CPAP Download Remote Patient Monitoring [facility] [address] [place] [address] [facility], Provider, Social History Tobacco Use Types Packs/Day Years Used Date Smoking Tobacco: Former Cigarettes 0.3 20 1 - 05/22/1981 Passive Smoke Exposure: Past Smokeless Tobacco: Never Alcohol Use Standard Drinks/Week Comments Yes 2 (1 standard drink = 0.6 oz pur e alcohol) [facility] Utilities Answer Date Recorded In the past 12 months has [facility] [employer], gas, oil, or water [employer] threatened to shut off services in your [...] your living situation today? I have a [facility] place to live 12/22/2023 Education Answer Date Recorded What is the highest level of school you have completed or the highest degree you have received? 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 11/29/2024 1:30 PM CDT Comprehensive Visit Department of Ophthalmology in [address] [address] Benoit Nails M.D. [address] [place] [phone] documented as of this encounter Visit Diagnoses Not on filedocumented in this encounter Additional Health Concerns Assessment Noted Time PHQ-9 Depression Total Score: 3 03/01/20 22 7:00 [address] ST[address]CAR REPAIRER documented as of this encounter Care Teams Pig Casting Machine Operator Relationship Specialty Start Date End Date Elsewhere, Pcp PCP - General Internal Medicine 01/21/22 documented as of this encounter
--- OUTSIDE RECORDS SUMMARY | 2024-10-22 09:29 | XMS_ITS | Encounter Summary ---
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 11/29/2024 1:30 PM CDT Comprehensive Visit Department of Ophthalmology in [address] [address] Benoit Nails M.D. [address] [place] [phone] documented as of this encounter Visit Diagnoses Not on filedocumented in this encounter Additional Health Concerns Infection Onset Date Last Indicated Resolved Time COVID19 Pending 02/29/2020 02/29/2020 02/29/2020 7 :08 PM STENOTYPE MACHINE OPERATOR documented as of this encounter Care Teams Solutions Analyst Relationship Specialty Start Date End Date Elsewhere, Pcp PCP - General Internal Medicine 01/21/22 documented as of this encounter
--- OUTSIDE RECORDS SUMMARY | 2024-10-22 09:29 | XMS_ITS | Encounter Summary ---
Author Organization [facility] Address [address] [place] [address] Care Team Providers Care Field Artillery Senior Sergeant Name Role Phone Elsewhere, Pcp Primary Care Provider Unavailabl e Encounter Details Date Type Department Care Team (Late st Contact Info) Description 10/12/2024 CPAP Download Remote Patient Monitoring [facility] [address] [place] [address] [facility], Provider, Social History Tobacco Use Types Packs/Day Years Used Date Smoking Tobacco: Former Cigarettes 0.3 20 1 - 05/22/1981 Passive Smoke Exposure: Past Smokeless Tobacco: Never Alcohol Use Standard Drinks/Week Comments Yes 2 (1 standard drink = 0.6 oz pur e alcohol) [facility] Utilities Answer Date Recorded In the past 12 months has [facility] [employer], gas, oil, or water [employer] threatened to shut off services in your [...] your living situation today? I have a [facility] place to live 12/22/2023 Education Answer Date Recorded What is the highest level of school you have completed or the highest degree you have received? 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 11/29/2024 1:30 PM CDT Comprehensive Visit Department of Ophthalmology in [address] [address] Benoit Nails M.D. [address] [place] [phone] documented as of this encounter Visit Diagnoses Not on filedocumented in this encounter Additional Health Concerns Assessment Noted Time PHQ-9 Depression Total Score: 3 03/01/20 22 7:00 PM SEASONAL CLERK documented as of this encounter Care Teams Field Artillery Senior Sergeant Relationship Specialty Start Date End Date Elsewhere, Pcp PCP - General Internal Medicine 01/21/22 documented as of this encounter
--- OUTSIDE RECORDS SUMMARY | 2024-10-22 09:29 | XMS_ITS | Encounter Summary ---
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 11/29/2024 1:30 PM CDT Comprehensive Visit Department of Ophthalmology in [place], [place] [address] [place] [phone] Benoit Nails M.D. [address] [place] [phone] documented as of this encounter Visit Diagnoses Not on filedocumented in this encounter Additional Health Concerns Infection Onset Date Last Indicated Resolved Time COVID19 Pending 02/29/2020 02/29/2020 02/29/2020 7 :08 PM CERTIFIED PHYSICAL THERAPIST ASSISTANT documented as of this encounter Care Teams First Assistant Relationship Specialty Start Date End Date Elsewhere, Pcp PCP - General Internal Medicine 01/21/22 documented as of this encounter
--- OUTSIDE RECORDS SUMMARY | 2024-10-22 09:29 | XMS_ITS | Clinical Summary ---
Author Organization [facility] Address [address] [place] [address] Care Team Providers Care Distribution Driver Name Role Phone Elsewhere, Pcp Primary Care Provider Unavailabl e Source Comments Patient records contain information from all sites at [facility]. For routine questions regarding patient records, call [phone] during business hours, M-F 8:00 AM - 5:00 PM Central Time. Record requests for emergency care only can be directed to [phone] at any time.[facility] Allergies Active Allergy Reactions Criticality [...] throat swelling High 10/12/2003 GI distress (mild) Tirzepatide Other (see comments) 07/19/2024 Diarrhea and 'gagging' even on 2.5 Medications amoxicillin (AMOXIL) 500 mg capsule Take 4 capsules by mouth as needed. Before dental procedure one hour before 7 Active cholecalciferol (VITAMIN D3) 2,000 Unit capsule Take 1 capsule by mouth every morning. Supplement 7 Active meclizine (ANTIVERT) 25 mg tablet Take 1 tablet by mouth 3 (three) times a day as needed. For motion sickness 7 Active famotidine (PEPCID) 20 mg tablet Take 2 tablets by mouth at bedtime. 7 Active UNABLE TO FIND 2 (two) times a day. Med Name: Avenova (Eye cleaning swabs) Active apixaban (ELIQUIS) 5 mg tablet Take 1 tablet (5 mg total) by mouth 2 (two) times a day. 180 tablet 3 2 Active magnesium oxide (MAG-OX) 400 mg (241.3 mg magnesium) tablet Take 400 mg by mouth 2 (two) times a day before breakfast and dinner. 2 Active furosemide (LASIX) 20 mg tablet 20 mg. 2 Active Accu-Chek Guide test strips 2 (two) times a day. test blood sugar 3 Active Accu-Chek Softclix Lancets lancets CHECK BLOOD SUGAR TWICE DAILY 3 Active carboxymethylcel lulose (REFRESH TEARS) 0.5 % ophthalmic solution Administer 1 drop into both eyes as needed for dry eyes. Every other day Active ascorbic acid, vitamin C, (Vitamin C) 1,000 mg tablet Take 1,000 mg by mouth 2 (two) times a day. Active dilTIAZem (DILACOR XR/DILT-XR) 180 mg ER capsule Take 2 capsules (360 mg total) by mouth daily. 180 capsule 3 3 Active DME CPAPIndications: Apnea Sleep Obstructive DME Order 1 each 4 Active mupirocin (Bactroban) 2 % ointmentIndicati ons:Tumor Skin Uncertain Behavior Apply 1 Application topically 3 (three) times a day. Apply to affected areas. 22 g 4 Active ketoconazole (Nizoral) 2 % creamIndications :Intertrigo Apply 1 Application topically 2 (two) times a day. Apply to central chest/under breasts . 30 g 6 4 Active valACYclovir (Valtrex) 1000 mg tabletIndication s:Varicella Take 1 tablet (1,000 mg total) by mouth 2 (two) times a day. 14 tablet 4 Active metoprolol succinate (Toprol XL) 25 mg 24 hr tablet Take 25 mg by mouth as needed. Do not crush or chew. Active levothyroxine 150 mcg tablet Take 1 tablet by mouth daily. 4 Active metFORMIN XR (Glucophage-XR) 500 mg 24 hr tablet Take 1,000 mg by mouth 2 (two) times a day. 5 Active rosuvastatin (Crestor) 10 mg tablet Take 10 mg by mouth daily. 5 Active vitamins A,C,V-avam-tquqj r (PreserVision AREDS) 7,160 Units-113 mg-100 Units per tablet Take 1 tablet by mouth 2 (two) times a day. Active amitriptyline 2 % gabapentin 5 % ketamine 5 % in lipodermIndicati ons:Neuralgia Post Herpetic Apply topically 3 (three) times a day. Apply to tender area on forehead when symptomatic. 60 g 2 09/17/2024 4:14 PM CDT 5 Active Active Problems Problem Noted Date Diagnosed Date Thrombocytopenia 03/03/2022 Chronic Kidney Disease (CKD) , Stage 3b Glomerular Filtration Rate (GFR) 30 To 44 03/01/2022 Lymphadenopathy Inguinal 02/27/2022 Atrial Fibrillation Paroxysmal 01/31/2022 Stenosis Aortic Valve Acquired 01/29/2022 Overview (01/29/2022): Added automatically from request for surgery [id number] Atrial Fibrillation Unspecified 01/22/2022 Tachycardia Atrial Paroxysmal [...] Encounters Date Type Department Care Team Description 10/12/2024 CPAP Download Remote Patient Monitoring [facility] [address] [place] [address] [facility] Miley Vargas MD 09/22/2024 Clinical Communication Department of Dermatology in [place], [place] [address] [place] [phone] Ariana Mera M.D. Rx Denial (Pcca Lipoderm Base Cream, Propylene Glycol liquid, Gabapentin Powder, Ketamine hcl powder, Amitriptyline hcl powder); Rx Appeal Denial (amitriptyline hcl, gabapentin, ketamine hcl, propylene glycol , pcca lipoderm base) 09/21/[address] [facility] [place] [address] [place] [phone] Eve Tavarez 09/13/2024 4:20 PM CDT Ancillary Procedure Department of Dermatology 09/13/2024 4:20 PM CDT Comprehensive Visit Department of Dermatology in [place], [place] [address] [place] [address] [place] [address] Ariana Mera M.D. Neuralgia Post Herpetic (Primary Dx); Tumor Skin Uncertain Behavior; Keratosis Actinic; Dermatoheliosis; Keratosis Seborrheic 09/11/2024 CPAP Download Remote Patient Monitoring [facility] [address] [place] [address] [place] Sam, MD Miley 09/08/2024 12:45 PM CDT Clinical Communication Virtual Review in [place], [place] 200 [place] [address] Pre-visit Intake 08/11/2024 CPAP Download Remote Patient Monitoring [facility] [address] [place] [address] [facility], ProviderMD from Last 3 Months Immunizations Immunization Administration Dates Next Due Influenza Split 04/28/2012 [...] Brother 1 Piotr Anderson (brother) Diagnosed at [facility] 1965 Rheum arthritis Brother 2 Piotr Anderson Continue t o take medication and have surgeries related to RA Coronary artery disease Brother 3 Ivan Anderson 4 stents Asthma Brother 4 Duong Anderson Had asthma ss a young child; showed allergied as an adult (edin). Glaucoma Brother 4 Duong Anderson Other cancer Brother 5 Duong Anderson Mouth precance rs were monitored before his from a stroke in 2019 Stroke Brother 5 Duong Anderson Lung cancer Father Cedric Anderson November 1980 - May 1981, diagnosis od stage 4 lung cancer confirmed by [facility] in 1980 Thyroid disease Father Cedric Anderson Breast cancer Mother Heather Enriquez Anderson Glaucoma Mother Heather Enriquez Anderson Macular degeneration Mother Heather Enriquez Monica Pancreatic cancer Mother Heather Mina Anderson This w as a slow growing cancer diagnosed about 1999; treated symptoms Stroke Mother's Brother 1 duong anderson 2 stroke s; second one fatal Coronary artery disease Mother's Brother 2 Ivan obrien Dementia Mother's Sister Judy Arnold 1969 Breast cancer Paternal Grandmother Minnie Anderson Stroke Paternal Grandmother Minnie Anderson Breast cancer Kidney disease Sister Yoko Anderson Vic Neuphri tis, 195 Other cancer Sister Yoko Coffmanterrell Multiple myeloma March,; was treated at [facility] with stem cell transplant Diabetes Son 1 Shashakn García Type 1 diabetes diagnosed at age 4; from acute miocarditis in 1997 by diabetis Sleep apnea Son 2 Anil García Just sta tted using cpap Thyroid disease Son 2 Anil García Took radioactine iodine; treated at [facility] 1998 Sleep apnea Son 3 Francisco Javier noland (son) Uses mothguard for sleep apnea Thyroid disease Son 3 Francisco Javier noland (son) Took radioactive iodine Thyroid disease Son 4 Shashank García Had surgery in 1981 at [facility] to remove goiter: diabetes diagnosed after surgery Kidney disease Son 5 Duong García Had acute my ocarditis at age 23; had a heart vad for 10 days; hes 48?years old and inngood health Seizures Son 5 Duong García [facility] in [facility] Relation Name Status Comments Brother 1 Piotr Anderson (brother) Brother 2 Piotr Anderson Brother 3 Ivan Wade Monica Brother 4 Duong Anderson Brother 5 Duong Monica Father Cedric Anderson Mother Heather Anderson Mother's Brother 1 duong monica Mother's Brother 2 Ivan Monica Mother's Sister Judy Arnold Paternal Grandmother Minnie Anderson Sister Yoko Ho Son 1 Shashank García Son 2 Anil García Son 3 Francisco Javier García (son) Son 4 Shashank García Son 5 Duong García Social History Tobacco Use Types Packs/Day Years Used Date Smoking Tobacco: Former Cigarettes 0.3 20 1 - 05/22/1981 Passive Smoke Exposure: Past Smokeless Tobacco: Never Tobacco Cessation:Counseling Given: Not Answered Alcohol Use Standard Drinks/Week Comments Yes 2 (1 standard drink = 0.6 oz pur e alcohol) [facility] Utilities Answer Date Recorded In the past 12 months has e Glo Bags, gas, oil, or water [employer] threatened to shut off services in your [...] your living situation today? I have a [facility] place to live 12/22/2023 Education Answer Date Recorded What is the highest level of school you have completed or the highest degree you have received? Bachelor's degree (e.g., BA, AB, BS) 10/12/2018 Comments No Sex and Gender Information Value Date Recorded Sex Assigned at Female 12/31/2020 10:01 AM CDT Legal Sex Female 4:55 AM CENTRIFUGAL SPINNER Gender Identity Female 12/16/2017 12:50 PM CDT Sexual Orientation Straight 12/16/2017 12 :50 PM CDT Last Filed Vital Signs Vital Sign Reading Time Taken Comments Blood Pressure 127/74 01/16/2024 10:49 AM CDT Pulse 65 01/16/2024 10:49 AM CDT Temperature 36.8 C (98.2 F) 03/17/2023 10:05 AM CENTRIFUGAL SPINNER Respiratory Rate 16 03/17/2023 10:0 5 AM CENTRIFUGAL SPINNER Oxygen Saturation 92% 03/17/2023 10: 05 AM CENTRIFUGAL SPINNER Inhaled Oxygen Concentration - - Weight 99.9 kg (220 lb 2.1 oz) 12/22/19 3:31 PM CDT sandals on Height 163.6 cm (5' 4.41) 12/22/2023 3 :31 PM CDT sandals on Body Mass Index 37.31 12/22/2023 3:31 PM CDT Plan of Treatment Upcoming Encounters Date Type Department Care Team (Latest Contact Info) Description 11/26/2024 8:45 AM CDT Clinical Communication Virtual Review in [place], [place] 200 [place] [address] 11/29/2024 1:00 PM CDT Ancillary Procedure Department of Ophthalmology in [place], [place] [address] [place] [phone] Ariana Mera M.D. 11/29/2024 1:30 PM CDT Comprehensive Visit Department of Ophthalmology in [place], [place] [address] [place] [phone] Benoit Nails M.D. [address] [place] [phone] Health Maintenance Due Date Last Done Comments Diabetic Office Visit with Foot Exam 1945 Urine Albumin 1945 Hepatitis B Vaccines (1 of 3 - Risk 3-dose series) 2003 Dilated Eye Exam 12/04/2023 12/03/2022, 12/07/2021 COVID-19 Vaccine ( season) 2023 01/31/2022, 07/30/2021, 02/07/2021, Additional history exists Depression Screening (Annual PHQ-2) 04/14/2024 Fall Risk Screen (Annual) 04/14/2024 Thyroid Stimulating Hormone (TSH) test for thyroid function 09/16/2024 09/17/2023, 07/18/2022, 01/22/2022, Additional history exists Influenza Vaccine (#1) 2025 , 05/14/2023, 01/31/2022, Additional history exists Creatinine Level (Kidney Function Test) 01/15/2025 01/16/2024, 09/17/2023, 02/05/2023, Additional history exists Office Visit for Blood Pressure Check / Re-check 01/15/2025 01/16/2024 Potassium Level 01/15/2025 01/16/2024, 06/0 08/2023, 02/05/2023, Additional history exists Sodium Level 01/15/2025 01/16/2024, 060 08/2023, 02/05/2023, Additional history exists Hemoglobin A1C 01/18/2025 07/19/2024, 12/2023, 09/17/2023, Additional history exists DTaP,Tdap,and Td Vaccines (3 - Td or Tdap) 05/14/2033 05/14/2023, 05/04/2012, 07/19/2002, Additional history exists Zoster Vaccines Completed 08/28/2018, 07/31/2018 Pneumococcal vaccine (50+ years) Completed 08/13/2023, 07/22/2014, 03/24/2010 RSV vaccine - (32-36 weeks) or 60+ years Completed 08/13/2023 IPV Vaccines Aged Out No longer eligi ble based on patient's age to complete this topic Medical Devices Implanted Type Area Chromium Plater Device Identifier Shelf Expiration Date Model / Serial / Lot Ultra Stent 4.5 X 18 Rx - [id number] Implanted:Qty: 1 on 07/13/2004 Cardiac Stent Guidant Description:Device Manufactu rer - Guidant Deshawn.. Device Status Text - [id number]. Valve Trifecta 23mm Tis - Augustin [id number] Implanted:Qty: 1 on 09/19/[address] Cardiac [address]hesis Aorta [employer] Description:Device Manufactu rer - [employer] Body Location - Other. Aortic. Device Status Text - [id number]. Vlv Maco S3 Ultra 23 - [id number] - [id number] Implanted:Qty: 1 on 03/01/2022 at [facility] Cardiac Valve Prosthesis N/A: Heart [employer] 11/06/2024 [id number] / [id number] / Description:AO Trilogy-Screw 6.5x25 - [place] [id number] Implanted:Qty: 1 on 01/11/2014 Hardware e.g. pins/screws/ rods [employer] Description:Device Manufactu rer - Jennifer. Device Status Text - [id number]. Trilogy-Screw 6.5x35 - [place] [id number] Implanted:Qty: 1 on 01/11/2014 Hardware e.g. pins/screws/ rods [employer] Description:Device Manufactu rer - Jennifer. Device Status Text - HARDWARE-26325. Trilogy-Screw 6.5x30 - [place] [id number] Implanted:Qty: 2 on 01/11/2014 Hardware e.g. pins/screws/ rods [employer] Description:Device Manufactu rer - Jennifer. Device Status Text - HARDWARE-48374. Clp Hrzn Ti 6 Clp Sm Red - [id number] Implanted:Qty: 1 on 03/17/2023 by Zan Cool M.D. at [facility] Hardware e.g. pins/screws/ rods Right: [employer] [id number] / / Clp Hrzn Ti 6 Clp Md Homar - [id number] Implanted:Qty: 1 on 03/17/2023 by Zan Cool M.D. at [facility] Hardware e.g. pins/screws/ rods Right: [employer] [id number] 08/28/2027 [id number] / / [id number] Clp Hrzn Ti 6 Clp Sm Red - [id number] Implanted:Qty: 1 on 03/17/2023 by Zan Cool M.D. at [facility] Hardware e.g. pins/screws/ rods Right: [employer] [id number] 12/11/2027 / / [id number] Clp Hrzn Ti 6 Clp Sm Red - [id number] Implanted:Qty: 1 on 03/17/2023 by Zan Cool M.D. at [facility] Hardware e.g. pins/screws/ rods Right: [employer] [id number] 12/11/2027 / / [id number] 230 Clp Hrzn Ti 6 Clp Md Homar - [id number] Implanted:Qty: 1 on 03/17/2023 by Zan Cool M.D. at [facility] Hardware e.g. pins/screws/ rods Right: [employer] [facility] [id number] 08/28/2027 [id number] / / [id number] Zim-Liner Poly Xlpe 0 Deg 36x50 - Augustin [id number] Implanted:Qty: 1 on 01/11/2014 Hip Implant Other/Legacy - See Implant Description [employer] Description:Device Manufactu rer - Jennifer. Body Location - Other. Right. Device Status Text - HIP IMP-[id number]. Zim. Shell Tril W Holes 54 - Augustin [id number] Implanted:Qty: 1 on 01/11/2014 Hip Implant Other/Legacy - See Implant Description [employer] Description:Device Manufactu rer - Jennifer. Body Location - Other. Right. Device Status Text - HIP IMP-260408. [place]-Stem Belle 7 Hi - Augustin [id number] Implanted:Qty: 1 on 01/11/2014 Hip Implant Other/Legacy - See Implant Description [email or web address] Description:Device Manufactu rer - [employer]. Body Location - Other. Right. Device Status Text - HIP [id number]. J J Articul Damir Head 36 + 1.5 - Augustin [id number] Implanted:Qty: 1 on 01/11/2014 Hip Implant Other/Legacy - See Implant Description [employer] Description:Device Manufactu rer - [employer]. Body Location - Other. Right. Device Status Text - HIP IMP-101241. J J Tib Non-Por St 71 X 47 - [place] [id number] Implanted:Qty: 1 on 01/27/2001 Knee Implant [employer] Description:Device Manufactu rer - [employer]. Device Status Text - KNEE IMP-3258. J J Sig Fem Lugged Sz 4.0 Rt - [place] [id number] Implanted:Qty: 1 on 01/27/2001 Knee Implant [employer] Description:Device Manufactu rer - [employer]. Device Status Text - KNEE IMP-60962. J J Patella Rev Round 32m - [...] Lug Fem Sz 4n Lt - Augustin [id number] Implanted:Qty: 1 on 11/21/2016 Knee Implant Other/Legacy - See Implant Description [employer] Description:Device Manufactu rer - [employer]. Body Location - Other. Left. Device Status Text - KNEE [id number]. Depuy-Tib Tray Mod Cement Cocr Sz3 - Augustin [id number] Implanted:Qty: 1 on 11/21/2016 Knee Implant Other/Legacy - See Implant Description [employer] Description:Device Manufactu rer - [employer]. Body Location - Other. Left. Device Status Text - KNEE [id number]. J J Patella Rev Round 32m - Augustin [id number] Implanted:Qty: 1 on 11/21/2016 Knee Implant Other/Legacy - See Implant Description [employer] Description:Device Manufactu rer - [employer]. Body Location - Other. Left. Device Status Text - KNEE IMP-[id number]. Depuy-Insert Stabilized Sz 3 15mm - Augustin [id number] Implanted:Qty: 1 on 11/21/2016 Knee Implant Other/Legacy - See Implant Description [employer] Description:Device Manufactu rer - [employer]. Body Location - Other. Left. Device Status Text - KNEE [id number]. Depuy-Insert Stabilized Sz 3 15mm - Augustin [id number] Implanted:Qty: 1 on 11/21/2016 Knee Implant Other/Legacy - See Implant Description [employer] Description:Device Manufactu rer - [employer]. Body Location - Other. Left. Device Status Text - KNEE IMP-[id number]. Cement Bone Large - Augustin [id number] Implanted:Qty: 2 on 01/27/2001 Misc Other [place] Description:Device Manufactu rer - [place] Deshawn.. Device Status Text - MISCOTHER-2840. Cement Bone Large - Augustin [id number] Implanted:Qty: 2 on 11/21/2016 [facility] [place] Description:Device Manufactu rer - Darrick Deshawn.. Device Status Text - MISCOTHER-2840. Procedures Procedure Name Priority Date/Time Associated Diagnosis Comments DERMATOLOGY IMAGE EXAM Routine 09/13/2024 4:20 PM CDT SODIUM, S/P Routine 01/16/2024 7:14 AM CDT Regurgitation Mitral Prosthesis Aortic Valve POTASSIUM, S/P Routine 01/16/2024 7:14 AM CDT Regurgitation Mitral Prosthesis Aortic Valve CREATININE WITH EGFR, S/P Routine 01/16/2024 7:14 AM CDT Regurgitation Mitral Prosthesis Aortic Valve THYROID FUNCTION CASCADE, S Routine 01/22/2022 9:32 AM CDT HEMOGLOBIN A1C, B Routine 08/13/2013 5:0 5 PM CDT from Last 3 Months or Most Recently Relevant to Health Maintenance Results * eye, left lower eyelid margin [...] IMAGING PROCE DURES Final Result IIMS NA * Sodium (01/16/2024 7:14 AM CDT) Sodium, S 140 135 - 145 mmol/L 01/16/2024 8:20 AM CDT DTL Blood (Blood, Venous) 01/16/2024 7:14 AM CDT 01/16/2024 7:52 AM CDT us Chriss Robles Jr., M.D. LAB BLOOD ADD-ON Final R esult [facility] [address] 200 [place] [address] * Potassium (01/16/2024 7:14 AM CDT) Potassium, S 4.3 3.6 - 5.2 mmol/L 01/16/2024 8:20 AM CDT DTL Blood (Blood, Venous) 01/16/2024 7:14 AM CDT 01/16/2024 7:52 AM CDT us Chriss Robles Jr., M.D. LAB BLOOD ADD-ON Final R esult Performing Organization Address City/[facility] Co de Phone Number [facility] [address] [facility] 200 [place] [address] * (ABNORMAL) Creatinine with Estimated GFR (01/16/2024 7:14 AM CDT) Creatinine 1.18(H) 0.59 - 1.04 mg/dL 01/16/2024 8:20 AM CDT DTL Estimated GFR (eGFR) 47(L) >=60 mL/min/BSA 01/16/2024 8:20 AM CDT DTL Comment: Estimated GFR calculated using the 2020 CKD_EPI creatinine equation. Blood (Blood, Venous) 01/16/2024 7:14 AM CDT 01/16/2024 7:52 AM CDT us Chriss Robles Jr., M.D. LAB BLOOD ADD-ON Final R esult Performing Organization Address City/[facility]/ZIP Co de Phone Number [facility] [address] [facility] 200 [place] [address] * Thyroid Function Pep (01/22/2022 9:32 AM CDT) TSH, Sensitive 0.6 0.3 - 4.2 mIU/L 01/22/2022 11:27 AM CDT DTL Blood 01/22/2022 9:32 AM CDT 01/22/2022 10:54 AM CDT Yoan Dorado APRN, C.N.P., M.S.N. LAB BLOOD ADD-ON F inal Result [facility] 200 [place] [address], [facility] 200 [place] [address] * (ABNORMAL) Hemoglobin A1c (08/13/2013 5:05 PM CDT) Hemoglobin A1c, B 6.3(H) 4.0 - 6.0 POWERCHART Blood 08/13/2013 5:05 PM CDT Manny Leon APRN, C.N.P., M.S.N. LAB BLOOD ADD-ON Final Result POWERCHART from Last 3 Months or Most Recently Relevant to Health Maintenance Insurance [facility] Advance Directives For more information, please contact: [phone] * Full Code (Latest Code Status on [...] Answer Comments Full Code: Discussed Care Teams Distribution Driver Relationship Specialty Start Date End Date Elsewhere, Pcp PCP - General Internal Medicine 01/21/22
--- OUTSIDE RECORDS SUMMARY | 2024-10-22 09:29 | XMS_ITS | Encounter Summary ---
Author Organization [facility] Address [address] [place] [address] Care Team Providers Care Copier Operator Name Role Phone Elsewhere, Pcp Primary [...] AM CDT Legal Sex Female 4:55 AM SAS PROGRAMMER ANALYST Gender Identity Female 12/16/2017 12:50 PM CDT [...] both eyes CDM Reports - EYEGEN Id: [id number] Status: Fnl documented in this encounter Plan of Treatment Upcoming Encounters Date Type Department Care Team (Latest Contact Info) Description 11/26/2024 8:45 AM CDT Clinical Communication Virtual Review in [place], [place] 200 [place] [address] 11/29/2024 1:00 PM CDT Ancillary Procedure Department of Ophthalmology in [place], [place] [address] [place] [phone] Ariana Mera M.D. 11/29/2024 1:30 PM CDT Comprehensive Visit Department of Ophthalmology in [place], [place] [address] [place] [phone] Benoit Nails M.D. [address] [place] [address] documented as of this encounter Visit Diagnoses Not on filedocumented in this encounter Additional Health Concerns Infection Onset Date Last Indicated Resolved Time COVID19 Pending 02/29/2020 02/29/2020 02/29/2020 7 :08 PM SAS PROGRAMMER ANALYST documented as of this encounter Care Teams Copier Operator Relationship Specialty Start Date End Date Elsewhere, Pcp PCP - General Internal Medicine 01/21/22 documented as of this encounter
--- OUTSIDE RECORDS SUMMARY | 2024-10-22 09:30 | XMS_ITS | Encounter Summary ---
Author Organization [facility] Address [address] [place] [address] Care Team Providers Care Sales And Marketing Associate Name Role Phone Elsewhere, Pcp Primary Care Provider Unavailabl e Encounter Details Date Type Department Care Team (Late st Contact Info) Description 09/21/2024 Orders Only [facility] [place] [id number] [place] [phone] Eve Tavarez Social History Tobacco Use Types Packs/Day Years Used Date Smoking Tobacco: Former Cigarettes 0.3 20 1 - 05/22/1981 Passive Smoke Exposure: Past Smokeless Tobacco: Never Alcohol Use Standard Drinks/Week Comments Yes 2 (1 standard drink = 0.6 oz pur e alcohol) [facility] Utilities Answer Date Recorded In the past 12 months has [employer] gas, oil, or water [employer] threatened to shut off services in your [...] your living situation today? I have a [facility] place to live 12/22/2023 Education Answer Date Recorded What is the highest level of school you have completed or the highest degree you have received? Bachelor's degree (e.g., BA, AB, BS) 10/12/2018 Comments No Sex and Gender Information Value Date Recorded Sex Assigned at Female 12/31/2020 10:01 AM CDT Legal Sex Female 4:55 AM AIRPORT MANAGER Gender Identity Female 12/16/2017 12:50 PM CDT Sexual Orientation Straight 12/16/2017 12 :50 PM CDT documented as of this encounter Plan of Treatment Upcoming Encounters Date Type Department Care Team (Latest Contact Info) Description 11/26/2024 8:45 AM CDT Clinical Communication Virtual Review in [place], [place] [address] [place] [phone] 11/29/2024 1:00 PM CDT Ancillary Procedure Department of Ophthalmology in [place], [place] [address] [place] [phone] Ariana Mera M.D. 11/29/2024 1:30 PM CDT Comprehensive Visit Department of Ophthalmology in [place], [place] [address] [place] [phone] Benoit Nails M.D. [address] [place] [phone] documented as of this encounter Visit Diagnoses Not on filedocumented in this encounter Additional Health Concerns Assessment Noted Time PHQ-9 Depression Total Score: 3 03/01/20 22 7:00 PM AIRPORT MANAGER documented as of this encounter Care Teams Sales And Marketing Associate Relationship Specialty Start Date End Date Elsewhere, Pcp PCP - General Internal Medicine 01/21/22 documented as of this encounter
[2024-10-22 09:36] VITALS: BP 140/78; PULSE 82; RESP 20; TEMP 36.8; O2SAT 95; BMI 38.3
--- NOTE | 2024-10-22 09:59 | CRLHL7_ITS ---
For Patients: As a result of the Century Cures Act, medical imaging exams and procedure reports are released immediately into your electronic medical record. You may view this report before your referring provider. If you have questions, please contact your health care provider. INDICATION: Right lower anterior rib/chest discomfort TECHNIQUE: Chest 2 views. COMPARISON: None. FINDINGS: Cardiovascular and mediastinum: Heart size is normal. Unremarkable mediastinum. Aortic valve replacement Lungs and pleural spaces: Scattered patchy bilateral perihilar and bibasal opacities. No sign of pleural effusion. No pneumothorax. Bones and soft tissues: Sternotomy wires. IMPRESSION: Scattered patchy bilateral perihilar and bibasal opacities concerning for multifocal pneumonia. Dictated by Carlita Greenberg MD @ 10/22/2024 11:02:01 AM (Electronically Signed)
--- NOTE | 2024-10-22 10:00 | ED.GENADULT ---
HPI - General Adult General Chief complaint: Dizziness/Vertigo Stated complaint: right side pain underneath breast, dizziness Time Seen by Provider: 10/22/24 09:47 History of Present Illness HPI narrative: This 79-year-old female comes in reporting some intermittent mild episodes of chest discomfort in her right lower anterior ribs, just below her right breast. She states that she can feel this mildly when taking a deep breath. She does not report any cough. She arrives here with normal vital signs. She has some anxiety about this as is typical but also indicates a scheduled cataract surgery coming up next week so she wants to be sure everything is okay for that to occur. She does not report any lightheadedness, nausea, vomiting, shortness of breath, diaphoresis, or exercise intolerance. She does not have any recent strenuous activity or injury event to trigger these symptoms. She also reports some mild feeling of off balance and this is also transient. She reports a history of diabetes and a heart valve replacement. Related Data Home Medications ?Medication ?Instructions ?Recorded ?Confirmed amoxicillin 500 mg capsule 2,000 mg PO PRN PRN 12/27/21 08/05/23 cholecalciferol (vitamin D3) 50 50 mcg PO DAILY 12/27/21 08/05/23 mcg (2,000 unit) capsule famotidine 20 mg tablet (Acid 20 mg PO HS 12/27/21 08/05/23 Chronograph Operator (famotidine)) ferrous sulfate 325 mg (65 mg 325 mg PO DAILY 12/27/21 08/05/23 iron) tablet furosemide 20 mg tablet 20 mg PO DAILY 12/27/21 08/05/23 levothyroxine 150 mcg tablet 150 mcg PO DAILY 12/27/21 08/05/23 meclizine 25 mg chewable tablet 25 mg PO TID PRN 12/27/21 08/05/23 (Antivert) metformin 500 mg tablet,extended 1,000 mg PO DAILY@18 12/27/21 08/05/23 release 24 hr nitroglycerin 0.4 mg sublingual 0.4 mg sublingual Q5M PRN 12/27/21 08/05/23 tablet rosuvastatin 10 mg tablet 10 mg PO HS 03/31/22 08/05/23 trimethoprim 100 mg tablet 100 mg PO DAILY 03/31/22 08/05/23 metoprolol tartrate 25 mg tablet 25 mg PO BID 04/01/22 08/05/23 diltiazem HCl 240 mg 360 mg PO DAILY 08/05/23 08/05/23 capsule,extended release 24 hr, controlled Previous Rx's ?Medication ?Instructions ?Recorded apixaban 5 mg tablet (Eliquis) 5 mg PO BID #60 tabs 12/29/21 magnesium oxide 400 mg (241.3 mg 400 mg PO DAILY #30 tabs 04/03/22 magnesium) tablet azithromycin 250 mg tablet 250 mg PO DAILY #6 tabs 10/22/24 (Zithromax Z-Amanuel) Allergies Allergy/AdvReac Type Severity Reaction Status Date / Time atorvastatin Allergy Verified 08/05/23 12:09 cephalexin Allergy Verified 08/05/23 12:09 ciprofloxacin Allergy Swelling Verified 08/05/23 12:09 of Lip/Tongue/Throat clindamycin Allergy Verified 08/05/23 12:09 Fish Containing Products Allergy Verified 08/05/23 12:09 ibuprofen Allergy Verified 08/05/23 12:09 Sulfa (Sulfonamide Allergy Verified 08/05/23 12:09 Antibiotics) sulfamethoxazole (From Allergy Verified 08/05/23 12:09 Bactrim) trimethoprim (From Bactrim) Allergy Verified 08/05/23 12:09 Review of Systems Status of ROS: Reports: 10 or more systems reviewed and unremarkable except as noted in History and below Narrative: Constitutional: No fevers, no weight gain or loss. Eyes: No discharge. No vision changes. HENT: No congestion, no sore throat, no ear pain. Cardiovascular: No palpitations. Respiratory: No shortness of breath, no wheezes, no cough. Gastrointestinal: No abdominal pain, no vomiting, no diarrhea. Genitourinary: No dysuria, no hematuria. Musculoskeletal: Normal range of motion. Skin: No rashes, no pruritis. Neurological: No weakness, sensory change, speech change. Brief episodes of occasional dizziness. Endo/Heme/Allergies: No bruising or bleeding. No polydipsia. Pysch: no suicidality, no anxiety, no insomnia. All other systems reviewed and are negative. [facility] Medical History Morbid obesity with BMI of 40.0-44.9, adult ?E66.01 - Morbid (severe) obesity due to excess calories (ICD-10) ?Z68.41 - Body mass index [BMI] 40.0-44.9, adult (ICD-10) Chronic UTI ?N39.0 - Urinary tract infection, site not specified (ICD-10) History of atrial fibrillation ?Z86.79 - Personal history of other diseases of the circulatory system (ICD-10) E-coli UTI ?N39.0 - Urinary tract infection, site not specified (ICD-10) ?B96.20 - Unspecified Escherichia coli [E. coli] as the cause of diseases classified elsewhere (ICD-10) Ascending aorta dilatation ?I77.810 - Thoracic aortic ectasia (ICD-10) Tricuspid regurgitation ?I07.1 - Rheumatic tricuspid insufficiency (ICD-10) Normocytic anemia ?D64.9 - Anemia, unspecified (ICD-10) CONSTANTINE (acute kidney injury) ?N17.9 - Acute kidney failure, unspecified (ICD-10) Bilateral sensorineural hearing loss ?H90.3 - Sensorineural hearing loss, bilateral (ICD-10) Tinnitus of both ears ?H93.13 - Tinnitus, bilateral (ICD-10) Benign paroxysmal positional vertigo ?H81.10 - Benign paroxysmal vertigo, unspecified ear (ICD-10) Diabetes mellitus type 2 in obese ?E11.69 - Type 2 diabetes mellitus with other specified complication (ICD-10) ?E66.9 - Obesity, unspecified (ICD-10) CKD stage 3 due to type 2 diabetes mellitus ?E11.22 - Type 2 diabetes mellitus with diabetic chronic kidney disease (ICD-10) ?N18.30 - Chronic kidney disease, stage 3 unspecified (ICD-10) Hyperlipidemia associated with type 2 diabetes mellitus ?E11.69 - Type 2 diabetes mellitus with other specified complication (ICD-10) ?E78.5 - Hyperlipidemia, unspecified (ICD-10) Obstructive sleep apnea on CPAP ?G47.33 - Obstructive sleep apnea (adult) (pediatric) (ICD-10) ?Z99.89 - Dependence on other enabling machines and devices (ICD-10) Gastroesophageal reflux disease ?K21.9 - Gastro-esophageal reflux disease without esophagitis (ICD-10) Morbid obesity with BMI of 45.0-49.9, adult ?E66.01 - Morbid (severe) obesity due to excess calories (ICD-10) ?Z68.42 - Body mass index [BMI] 45.0-49.9, adult (ICD-10) Lower extremity edema ?R60.0 - Localized edema (ICD-10) Primary hypothyroidism ?E03.9 - Hypothyroidism, unspecified (ICD-10) Essential hypertension ?I10 - Essential (primary) hypertension (ICD-10) Coronary artery disease ?I25.10 - Atherosclerotic heart disease of teller coronary artery without angina pectoris (ICD-10) Left atrial enlargement ?I51.7 - Cardiomegaly (ICD-10) Mitral valve sclerosis ?I05.8 - Other rheumatic mitral valve diseases (ICD-10) Mitral valve stenosis, severe ?I05.0 - Rheumatic mitral stenosis (ICD-10) Diastolic CHF, chronic ?I50.32 - Chronic diastolic (congestive) heart failure (ICD-10) Atrial flutter with rapid ventricular response ?I48.92 - Unspecified atrial flutter (ICD-10) Atrial fibrillation with rapid ventricular response ?I48.91 - Unspecified atrial fibrillation (ICD-10) Surgical History Status post transcatheter aortic valve replacement ?Z95.2 - Presence of prosthetic heart valve (ICD-10) Status post right knee replacement ?Z96.651 - Presence of right artificial knee joint (ICD-10) Status post left knee replacement ?Z96.652 - Presence of left artificial knee joint (ICD-10) Status post appendectomy ?Z90.49 - Acquired absence of other specified parts of digestive tract (ICD-10) Previous section ?Z98.891 - History of uterine scar from previous surgery (ICD-10) History of hysterectomy ?Z90.710 - Acquired absence of both cervix and uterus (ICD-10) Status post cholecystectomy ?Z90.49 - Acquired absence of other specified parts of digestive tract (ICD-10) History of right hip replacement ?Z96.641 - Presence of right artificial hip joint (ICD-10) H/O aortic valve replacement ?Z95.2 - Presence of prosthetic heart valve (ICD-10) Social History Highest level of school completed/degree received: Bachelor's degree Smoking Status: Former smoker Do you use any of these nicotine containing products: None Second hand tobacco smoke exposure: No How often do you have a drink containing alcohol: 2-4 times a month Alcohol type: beer and wine How many standard drinks containing alcohol do you have on a typical day: 1 or 2 How often do you have six or more drinks on one occasion: Never AUDIT-C Alcohol total score: 2 Non-prescribed substance use: denies use Caffeine: No service: No Exam Narrative: Exam Narrative: Constitutional: Well-developed, well-nourished, no acute distress. HEENT: Normocephalic, atraumatic. Neck: Normal range of motion. Nontender. Supple. Heart: Regular. No murmurs. Normal rate. Intact distal pulses. Lungs: Clear to auscultation. No chest discomfort. No wheezes, rhonchi, or rales. Chest: Discomfort in the anterior lower right ribs that is slightly reproducible when taking a deep breath. Abdomen: Normal bowel sounds. Nontender. No rebound tenderness. Genitalia: Deferred. Back: No midline tenderness. Normal range of motion. Extremities: Normal range of motion. No injury. Skin: Intact. No rash. Warm. No erythema or pallor. Neurologic: No altered sensation. No weakness. Alert and oriented. Psychiatric: No suicidality. No anxiety or depression. No insomnia. Nursing notes and vitals signs are reviewed. Const: Vital Signs, click to edit/add: Vital Signs - 24 hr 10/22/24 09:36 Temperature 98.2 F Pulse Rate [Pulse Oximeter] 82 Respiratory Rate 20 Blood Pressure [Ri ght Upper Arm] 140/78 H Pulse Oximetry 95 Oxygen Delivery Me thod Room Air Course Vital Signs Vital signs: Initial Vital Signs Temperature 98.2 F 10/22/24 09:36 Temperature Source Temporal Artery Scan 10/22/24 09:36 Pulse Rate 82 10/22/24 09:36 Respiratory Rate 20 10/22/24 09:36 Blood Pressure 140/78 H 10/22/24 09:36 Blood Pressure Mean 98 10/22/24 09:36 Pulse Oximetry 95 10/22/24 09:36 Oxygen Delivery Method Room Air 10/22/24 09:36 Vital Signs Temperature 98.2 F 10/22/24 09:36 Pulse Rate 82 10/22/24 09:36 Respiratory Rate 20 10/22/24 09:36 Blood Pressure 140/78 H 10/22/24 09:36 Pulse Oximetry 95 10/22/24 09:36 Oxygen Delivery Method Room Air 10/22/24 09:36 Temperature 98.2 F 10/22/24 09:36 Pulse Rate 82 10/22/24 09:36 Respiratory Rate 20 10/22/24 09:36 Blood Pressure 140/78 H 10/22/24 09:36 Pulse Oximetry 95 10/22/24 09:36 Oxygen Delivery Method Room Air 10/22/24 09:36 Medical Decision Making MDM Narrative Medical decision making narrative: This patient comes in reporting chest discomfort as described above. She has not had any coughing or fever or shortness of breath but chest x-ray was obtained and does show some evidence of multifocal patchy infiltrates that are suspicious for possible multifocal pneumonia. Lab results returned with reassuring findings. Patient is okay to return home. I did provide a prescription for Zithromax. Lab Data Labs: Lab Results 10/22/24 10/22/24 Range/Units 10:00 10:13 WBC 5.92 (4.50-11.00) K/uL RBC 4.38 (4.00-5.20) m/uL Hgb 12.6 (12.0-16.0) gm/dL Hct 38.9 (33.0-51.0) % MCV 89 (80-100) fL MCH 29 (26-34) pg MCHC 32 (32-36) gm/dL RDW Coeff of Adelina 14.1 (11.5-15.5) % Plt Count 132 L (140-440) K/uL Neut % (Auto) 84.5 H (42.0-72.0) % Lymph % (Auto) 7.6 L (20-44) % Bandera % (Auto) 7.1 (0.0-11.0) % Eos % (Auto) 0.0 (0.0-7.0) % Baso % (Auto) 0.3 (0.0-3.0) % Neut # (Auto) 5.00 (1.7-7.0) K/uL Lymph # (Auto) 0.40 L (0.90-2.90) K/uL Bandera # (Auto) 0.40 (0.00-0.90) K/UL Eos # (Auto) 0.00 (0.00-0.50) K/uL Baso # (Auto) 0.02 (0.00-0.30) K/uL Abs Immat Gran (auto) 0.03 (0.00-0.30) K/uL Imm/Tot Granulo (auto) 0.5 % Sodium 136 (135-149) mmol/L Potassium 4.3 (3.6-5.1) mmol/L Chloride 99 (96-114) mmol/L Carbon Dioxide 29 (20-32) mmol/L Anion Gap 8 (7-15) mEq/L BUN 25 (7-30) mg/dL Creatinine 1.1 (0.5-1.5) mg/dL Estimated Creat Clear 33.18 Estimated GFR 50 ml/min Glucose 190 H (60-115) mg/dL Calcium 9.4 (8.4-10.6) mg/dL POC Troponin I 0.01 (0.01-0.04) ng/ml ECG Data Attestation: I personally reviewed and interpreted this ECG as follows: Interpretation: Normal sinus rhythm. Rate is 78 beats per minute. There are no ST or T-wave abnormalities. Discharge Plan Discharge Clinical Impression: Atypical pneumonia Patient Disposition: Home, Self-Care Condition: Stable Additional Instructions: Take medication as prescribed. Use [id number] medicines also as needed and directed. Follow up with MD return if worsening. Prescriptions: New azithromycin [Zithromax Z-Amanuel] 250 mg tablet 250 mg PO DAILY Qty: 6 0RF No Action diltiazem HCl 240 mg capsule,ext.rel 24h degradable 360 mg PO DAILY levothyroxine 150 mcg tablet 150 mcg PO DAILY nitroglycerin 0.4 mg tablet, sublingual 0.4 mg sublingual Q5M PRN Patient Comments: PLACE ONE TABLET UNDER TONGUE NEEDED FOR CHEST PAIN MAY REPEAT EVERY 5 MINUTES NEEDED metformin 500 mg tablet extended release 24 hr 1,000 mg PO DAILY@18 meclizine [Antivert] 25 mg tablet,chewable 25 mg PO TID PRN cholecalciferol (vitamin D3) 50 mcg (2,000 unit) capsule 50 mcg PO DAILY amoxicillin 500 mg capsule 2,000 mg PO PRN PRN Patient Comments: TAKE 4 CAPSULE BY MOUTH 1 HOUR BEFORE DENTAL APPOINTMENT furosemide 20 mg tablet 20 mg PO DAILY famotidine [Acid Chronograph Operator (famotidine)] 20 mg tablet 20 mg PO HS ferrous sulfate 325 mg (65 mg iron) tablet 325 mg PO DAILY Eliquis 5 mg tablet 5 mg PO BID Qty: 60 0RF rosuvastatin 10 mg tablet 10 mg PO HS trimethoprim 100 mg tablet 100 mg PO DAILY metoprolol tartrate 25 mg tablet 25 mg PO BID magnesium oxide 400 mg (241.3 mg magnesium) Tablet 400 mg PO DAILY Qty: 30 0RF Follow Up/Referrals: Martinez Sal MD [Primary Care Provider, Family Practice] Stand Alone Forms: Vendavo Info Instructions
[2024-10-22 10:29] LABS: Troponin, Point-of-Care* 0.01 ng/ml (0.01-0.04)
[2024-10-22 10:34] LABS: Hematocrit 38.9 % (33.0-51.0); Hemoglobin* 12.6 gm/dL (12.0-16.0); Immature Granulocytes Abs Auto 0.03 K/uL (0.00-0.30); Immature Granulocytes Pct Auto 0.5 %; Mean Corpuscular HGB Conc 32 gm/dL (32-36); Mean Corpuscular Hemoglobin 29 pg (26-34); Mean Corpuscular Volume 89 fL (80-100); RDW Coefficient of Variation % 14.1 % (11.5-15.5); Red Blood Count 4.38 m/uL (4.00-5.20); White Blood Count* 5.92 K/uL (4.50-11.00)
[2024-10-22 10:35] LABS: Lymphocytes Absolute Auto 0.40 K/uL (0.90-2.90)
[2024-10-22 10:36] LABS: Slide Review Reflex No
[2024-10-22 10:51] LABS: Chloride* 99 mmol/L (96-114); Potassium* 4.3 mmol/L (3.6-5.1); Sodium* 136 mmol/L (135-149)
[2024-10-22 10:54] LABS: Anion Gap 8 mEq/L (7-15); Blood Urea Nitrogen* 25 mg/dL (7-30); Carbon Dioxide* 29 mmol/L (20-32); Creatinine* 1.1 mg/dL (0.5-1.5); Est. Creatinine Clearance* 33.18; Estimated Glomerular Filt Rate 50 ml/min
[2024-10-22 10:55] LABS: Calcium* 9.4 mg/dL (8.4-10.6); Glucose* 190 mg/dL (60-115)
== END 2024-10-22 11:27 | disposition home or self-care (01) ==
PROVIDERS: Emergency Provider Emergency Medicine Emergency Medical Services; PCP Family Medicine
DX: J18.9 Pneumonia, unspecified organism (principal)
CPT/HCPCS: 36415; 71046; 80048; 84484; 85025; 93005; 99283; 99284